=== PATIENT | female | born 1995 | race Caucasian/White ===

== ENCOUNTER → 2017-02-22 | Outpatient (CLI) | payer BC ==
[~2017-02-22] MED LIST: BCPILLS PO; DICY20TA35 PO; DSY50 PO; FLUO20CA35 PO; METR500T PO; MONT1TAB3 PO; MONT1TAB5 PO; SERT25TA PO; ZLF50 PO
== END | disposition home or self-care (01) ==
LOC: C.PAPS 13:06
PROVIDERS: ATTEND Physician Assistant
DX: Z01.419 Encounter for gynecological examination (general) (routine) without abnormal findings (principal)

== ENCOUNTER → 2017-02-23 | Outpatient (CLI) | payer BC ==
[2017-02-26 23:54] LABS: CHLAMYDIA TRACH RNA*** NOT DETECTED (NOT DETECTED); GC (NEIS GONORRHOEAE)RNA** NOT DETECTED (NOT DETECTED)
== END | disposition home or self-care (01) ==
LOC: C.LABSPEC 11:24
PROVIDERS: ATTEND Physician Assistant
DX: Z11.3 Encounter for screening for infections with a predominantly sexual mode of transmission (principal)

== ENCOUNTER 2017-03-17 19:50 | Emergency (ER) | payer BC, OTHER ==
[~2017-03-17] VITALS: Ht 165.1 cm; Wt 64.3 kg
[~2017-03-17 19:50] MED LIST changes: -BCPILLS PO; -DICY20TA35 PO; -DSY50 PO; -METR500T PO; -MONT1TAB3 PO; -MONT1TAB5 PO; -SERT25TA PO; -ZLF50 PO
[2017-03-17 19:54] VITALS: TEMP 36.8; Ht 165.1 cm; Wt 64.3 kg
[2017-03-17] MEDS ORDERED: SODIUM CHLORIDE 0.9% 1000ML 1,000 ML IV STA (20:10)
--- NOTE | 2017-03-17 20:14 | EMERGENCY ROOM VISIT NOTE ---
History Report prepared by Cory: Yakov Ellis Under the Supervision of: Dr. Frankie Nagy D.O. First contact with patient: 19:57 Chief Complaint: VAGINAL BLEEDING Stated Complaint: 7 WEEKS /LIGHT BLEEDING/ABDOMINAL PAIN History of Present Illness The patient is a 21 year old female who presents to the Emergency Room with complaints of persistent vaginal bleeding that began a "few days" ago. The patient also notes that she passed a large clot today. [facility] and was told that she was 7 weeks and four days . She also complains of "severe" abdominal cramping throughout the day today. She has been nauseous as well. She claims that she had similar severe abdominal cramping three weeks ago when she was unaware of the . The patient has also been lightheaded and dizzy. She denies any history fo STDs. Source of History: patient Position: other () Quality: other (Vaginal Bleeding) Timing: other (Persistent) Associated Symptoms: + abdominal pain, + nausea, No vomiting Review of Systems See HPI for pertinent positives & negatives. A total of 10 systems reviewed and were otherwise negative. Past Medical & Surgical Medical Problems: (1) Appendicitis (2) Appendicitis Family History Hypertension Kidney stones Social History Smoking Status: Never Smoker Alcohol Use: none Drug Use: none Housing Status: lives with family Occupation Status: employed Current/Historical Medications Scheduled Montelukast Sodium (Montelukast Sodium), 1 TAB PO HS Allergies Coded Allergies: Penicillins (Verified Allergy, Unknown, HIVES/RASH, 03/17/17) Physical Exam Vital Signs Date Time Temp Pulse Resp B/P Pulse Ox O2 Delivery O2 Flow Rate FiO2 03/17/17 22:07 76 16 101/56 97 03/17/17 21:19 68 16 107/41 100 Room Air 03/17/17 19:54 36.8 69 18 120/59 99 Room Air Physical Exam GENERAL: Patient is awake, alert, and in no acute distress. Patient is resting comfortably and showing no signs of anxiety EYES: The conjunctivae are clear. The pupils are round and reactive. EARS, NOSE, MOUTH AND THROAT: The nose is without any evidence of any deformity. Mucous membranes are moist tongue is midline NECK: The neck is nontender and supple. RESPIRATORY: Normal respiratory effort is noted there is no evidence of wheezing rhonchi or rales CARDIOVASCULAR: Regular rate and rhythm noted there no murmurs rubs or gallops normal S1 normal S2 GASTROINTESTINAL: The abdomen is soft. Bowel sounds are present in all quadrants. Abdomen is nontender MUSCULOSKELETAL/EXTREMITIES: There is no evidence of gross deformity full range of motion is noted in the hips and shoulders SKIN: There is no obvious evidence of any rash. There are no petechiae, pallor or cyanosis noted. NEUROLOGIC: Patient is awake alert and oriented x3. Medical Decision & Procedures ER Provider Diagnostic Interpretation: Radiology results as stated below per my review and radiologist interpretation: ULTRASOUND OF THE PELVIS CLINICAL HISTORY: . Vaginal bleeding. COMPARISON STUDY: Pelvic CT dated 01/19/2012. Pelvic ultrasound dated 01/19/2012. TECHNIQUE: Real-time, grayscale, and color flow sonography of the pelvis is performed both transabdominally and endovaginally. Images are reviewed in the transverse and longitudinal planes. FINDINGS: Uterus: The uterus is normal in size and echotexture, measuring 10.5 x 4.3 x 7.9 cm. Endometrium: The endometrium appears thickened measuring up to 3.0 cm. There is complex debris and fluid seen within the nature canal. A possible yolk sac is identified. A normal gestational sac and parts are not seen. No significant internal vascularity is identified on color imaging. Ovaries: The ovaries are normal in size and morphology. The right ovary measures 3.2 x 2.2 x 2.7 cm and the left ovary measures 3.8 x 2.2 x 2.0 cm. A corpus the team is noted on the right. Follicles are seen bilaterally. Normal Doppler waveforms are shown within both ovaries. Pelvis: There is trace free fluid in the cul-de-sac. No concerning adnexal lesion is seen. IMPRESSION: 1. A normal intrauterine gestation is not identified. 2. The endometrium is thickened, and there is fluid as well as complex nonvascular debris filling the endometrial canal. A possible yolk sac is questioned. A pole is not clearly identified. This likely represents an in progress. Although no adnexal lesion is identified, without a confirmed intrauterine gestation an ectopic would be impossible to exclude. Close clinical, laboratory, and sonographic follow-up is recommended. 3. The ovaries are normal in appearance. 4. There is trace free fluid in the cul-de-sac. Electronically signed by: Sonido Randolph M.D. 03/17/2017 9:39 PM Dictated Date/Time: 03/17/2017 9:34 PM ULTRASOUND OF THE PELVIS CLINICAL HISTORY: . Vaginal bleeding. COMPARISON STUDY: Pelvic CT dated 01/19/2012. Pelvic ultrasound dated 01/19/2012. TECHNIQUE: Real-time, grayscale, and color flow sonography of the pelvis is performed both transabdominally and endovaginally. Images are reviewed in the transverse and longitudinal planes. FINDINGS: Uterus: The uterus is normal in size and echotexture, measuring 10.5 x 4.3 x 7.9 cm. Endometrium: The endometrium appears thickened measuring up to 3.0 cm. There is complex debris and fluid seen within the nature canal. A possible yolk sac is identified. A normal gestational sac and parts are not seen. No significant internal vascularity is identified on color imaging. Ovaries: The ovaries are normal in size and morphology. The right ovary measures 3.2 x 2.2 x 2.7 cm and the left ovary measures 3.8 x 2.2 x 2.0 cm. A corpus the team is noted on the right. Follicles are seen bilaterally. Normal Doppler waveforms are shown within both ovaries. Pelvis: There is trace free fluid in the cul-de-sac. No concerning adnexal lesion is seen. IMPRESSION: 1. A normal intrauterine gestation is not identified. 2. The endometrium is thickened, and there is fluid as well as complex nonvascular debris filling the endometrial canal. A possible yolk sac is questioned. A pole is not clearly identified. This likely represents an in progress. Although no adnexal lesion is identified, without a confirmed intrauterine gestation an ectopic would be impossible to exclude. Close clinical, laboratory, and sonographic follow-up is recommended. 3. The ovaries are normal in appearance. 4. There is trace free fluid in the cul-de-sac. Electronically signed by: Sonido Randolph M.D. 03/17/2017 9:39 PM Dictated Date/Time: 03/17/2017 9:34 PM Laboratory Results 03/17/17 20:11 Red Blood Count 4.37, Mean Corpuscular Volume 91.1, Mean Corpuscular Hemoglobin 30.9, Mean Corpuscular Hemoglobin Concent 33.9, Mean Platelet Volume 9.5, Neutrophils (%) (Auto) 49.2, Lymphocytes (%) (Auto) 36.3, Monocytes (%) (Auto) 11.4, Eosinophils (%) (Auto) 2.9, Basophils (%) (Auto) 0.1, Neutrophils # (Auto ) 3.91, Lymphocytes # (Auto) 2.89, Monocytes # (Auto) 0.91, Eosinophils # (Auto ) 0.23, Basophils # (Auto) 0.01 03/17/17 20:11 Test 03/17/17 20:11 03/17/17 20:15 White Blood Count 7.96 K/uL (4.8-10.8) Red Blood Count 4.37 M/uL (4.2-5.4) Hemoglobin 13.5 g/dL (12.0-16.0) Hematocrit 39.8 % (37-47) Mean Corpuscular Volume 91.1 fL (80-100) Mean Corpuscular Hemoglobin 30.9 pg (25-34) Mean Corpuscular Hemoglobin Concent 33.9 g/dl (32-36) Platelet Count 248 K/uL (130-400) Mean Platelet Volume 9.5 fL (7.4-10.4) Neutrophils (%) (Auto) 49.2 % Lymphocytes (%) (Auto) 36.3 % Monocytes (%) (Auto) 11.4 % Eosinophils (%) (Auto) 2.9 % Basophils (%) (Auto) 0.1 % Neutrophils # (Auto) 3.91 K/uL (1.4-6.5) Lymphocytes # (Auto) 2.89 K/uL (1.2-3.4) Monocytes # (Auto) 0.91 K/uL (0.11-0.59) Eosinophils # (Auto) 0.23 K/uL (0-0.5) Basophils # (Auto) 0.01 K/uL (0-0.2) RDW Standard Deviation 44.0 fL (36.4-46.3) RDW Coefficient of Variation 13.1 % (11.5-14.5) Immature Granulocyte % (Auto) 0.1 % Immature Granulocyte # (Auto) 0.01 K/uL (0.00-0.02) Prothrombin Time 11.2 SECONDS (9.0-12.0) Prothromb Time International Ratio 1.0 (0.9-1.1) Activated Partial Thromboplast Time 29.8 SECONDS (21.0-31.0) Partial Thromboplastin Ratio 1.1 Anion Gap 8.0 mmol/L (3-11) Est Creatinine Clear Calc Drug Dose 104.5 ml/min Estimated GFR () 129.1 Estimated GFR (Non- 111.3 BUN/Creatinine Ratio 11.6 (10-20) Calcium Level 8.8 mg/dl (8.5-10.1) Total Bilirubin 0.6 mg/dl (0.2-1) Aspartate Amino Transf (AST/SGOT) 16 U/L (15-37) Alanine Aminotransferase (ALT/SGPT) 25 U/L (12-78) Alkaline Phosphatase 56 U/L (45-117) Total Protein 7.6 gm/dl (6.4-8.2) Albumin 4.0 gm/dl (3.4-5.0) Globulin 3.6 gm/dl (2.5-4.0) Albumin/Globulin Ratio 1.1 (0.9-2) Human Chorionic Gonadotropin, Quant 61204 mIU/mL Urine Color YELLOW Urine Appearance CLEAR (CLEAR) Urine pH 5.5 (4.5-7.5) Urine Specific [place] 1.015 (1.000-1.030) Urine Protein NEG (NEG) Urine Glucose (UA) NEG (NEG) Urine Ketones NEG (NEG) Urine Occult Blood 3+ (NEG) Urine Nitrite NEG (NEG) Urine Bilirubin NEG (NEG) Urine Urobilinogen NEG (NEG) Urine Leukocyte Esterase NEG (NEG) Urine WBC (Auto) 1-5 /hpf (0-5) Urine RBC (Auto) 5-10 /hpf (0-4) Urine Hyaline Casts (Auto) 1-5 /lpf (0-5) Urine Epithelial Cells (Auto) 20-30 /lpf (0-5) Urine Bacteria (Auto) NEG (NEG) Laboratory results per my review. Medications Administered Medications (Trade) Dose Ordered Sig/Juan Route Start Time Stop Time Status Last Admin Dose Admin Sodium Chloride (Nss 1000ml) 1,000 ml @ 999 mls/hr Q1H1M STAT IV 03/17/17 20:10 03/17/17 21:10 DC 03/17/17 20:14 999 MLS/HR Procedure PROCEDURE: BEDSIDE ULTRA SOUND A beside US was performed. There was a questionable gestation sack noted that was intrauterine. Very irregular in shape. No definite pool identified. ED Course 1999: The patient was evaluated in room A12. A complete history and physical examination were performed. 2009: Ordered Sodium Chloride 1000 mL @ 999 mL/hr IV. 2199: Upon reevaluation, the patient is resting in bed. I discussed the results and treatment plan with her. She verbalized agreement of the treatment plan. The patient was discharged home. Medical Decision The patient's history was concerning for vaginal bleeding and abdominal pain. Differential diagnosis: Etiologies such as ectopic , dysfunction uterine bleeding, bleeding dyscrasia, trauma, infection, as well as others were entertained. The patient is a 21-year-old female who presented to the emergency department for an evaluation of vaginal bleeding. The patient recently found out she was . The patient did not have a physical exam consistent with an acute surgical abdomen. Her bedside ultrasound did not appear to show a definite intrauterine . For this reason formal laboratory and radiographic studies was obtained. I discussed the patient's laboratory and radiographic studies with her. She was treated with IV fluids. At this time she does have an elevated beta hCG quantitative level but her ultrasound did not show definite intrauterine . I discussed follow-up with the patient and I encouraged her to follow-up with the [facility] [address] [facility] physician this week for reevaluation and have repeat ultrasound and repeat blood testing. She's also encouraged to avoid any strenuous activity and return to the emergency department immediately if symptoms change worsen or the need arises. Impression Primary Impression: Threatened miscarriage Scribe Attestation The scribe's documentation has been prepared under my direction and personally reviewed by me in its entirety. I confirm that the note above accurately reflects all work, treatment, procedures, and medical decision making performed by me. Departure Information Dispostion Home / Self-Care Referrals RV. Flores MD (PCP) Forms HOME CARE DOCUMENTATION FORM, IMPORTANT VISIT INFORMATION, WORK / SCHOOL INSTRUCTIONS Patient Instructions My [facility] Additional Instructions Follow-up with the [facility] physician on Sunday for repeat ultrasound as well as repeat blood test. Continue taking Motrin and Tylenol as directed for pain. Rest and avoid any strenuous activity. Return to the emergency department immediately if symptoms change worsen or the need arises.
[2017-03-17 20:26] LABS: BASO % 0.1 %; BASO ABS # 0.01 K/uL (0-0.2); COMPLETE YES; EOS % 2.9 %; HEMATOCRIT 39.8 % (37-47); IG% 0.1 %; LYMPH % 36.3 %; LYMPH ABS # 2.89 K/uL (1.2-3.4); MEAN CELL VOLUME 91.1 fL (80-100); MEAN CORPUSCULAR HEMOGLOBIN 30.9 pg (25-34); MEAN CORPUSCULAR HGB CONC 33.9 g/dl (32-36); MEAN PLATELET VOLUME 9.5 fL (7.4-10.4); MONO % 11.4 %; NEUT % 49.2 %; PLATELET COUNT 248 K/uL (130-400); RED BLOOD COUNT 4.37 M/uL (4.2-5.4); WHITE BLOOD COUNT 7.96 K/uL (4.8-10.8)
[2017-03-17 20:28] LABS: URINE APPEARANCE CLEAR (CLEAR); URINE BILIRUBIN NEG (NEG); URINE COLOR YELLOW; URINE EPITHELIAL CELL AUTO 20-30 /lpf (0-5); URINE NITRITE NEG (NEG); URINE PH 5.5 (4.5-7.5); URINE SPECIFIC GRAVITY 1.015 (1.000-1.030); UROBILINOGEN NEG (NEG)
[2017-03-17] MEDS ORDERED: MONT1TAB5 PO (20:28)
[2017-03-17 20:30] LABS: MANUAL MICROSCOPIC REQUIRED? NO; REVIEW REQ? NO
[2017-03-17 20:37] LABS: PARTIAL THROMBOPLASTIN RATIO 1.1; PROTHROMBIN TIME (PATIENT) 11.2 SECONDS (9.0-12.0)
[2017-03-17 20:42] LABS: BUN/CREATININE RATIO 11.6 (10-20); CALCIUM 8.8 mg/dl (8.5-10.1); CREATININE 0.76 mg/dl (0.60-1.20); POTASSIUM 3.8 mmol/L (3.5-5.1)
[2017-03-17 20:44] LABS: ALB/GLOB RATIO 1.1 (0.9-2)
--- NOTE | 2017-03-17 21:41 | DIAGNOSTIC IMAGING REPORT ---
ULTRASOUND OF THE PELVIS CLINICAL HISTORY: . Vaginal bleeding. COMPARISON STUDY: Pelvic CT dated 01/19/2012. Pelvic ultrasound dated 01/19/2012. TECHNIQUE: Real-time, grayscale, and color flow sonography of the pelvis is performed both transabdominally and endovaginally. Images are reviewed in the transverse and longitudinal planes. FINDINGS: Uterus: The uterus is normal in size and echotexture, measuring 10.5 x 4.3 x 7.9 cm. Endometrium: The endometrium appears thickened measuring up to 3.0 cm. There is complex debris and fluid seen within the nature canal. A possible yolk sac is identified. A normal gestational sac and parts are not seen. No significant internal vascularity is identified on color imaging. Ovaries: The ovaries are normal in size and morphology. The right ovary measures 3.2 x 2.2 x 2.7 cm and the left ovary measures 3.8 x 2.2 x 2.0 cm. A corpus the team is noted on the right. Follicles are seen bilaterally. Normal Doppler waveforms are shown within both ovaries. Pelvis: There is trace free fluid in the cul-de-sac. No concerning adnexal lesion is seen. IMPRESSION: 1. A normal intrauterine gestation is not identified. 2. The endometrium is thickened, and there is fluid as well as complex nonvascular debris filling the endometrial canal. A possible yolk sac is questioned. A pole is not clearly identified. This likely represents an in progress. Although no adnexal lesion is identified, without a confirmed intrauterine gestation an ectopic would be impossible to exclude. Close clinical, laboratory, and sonographic follow-up is recommended. 3. The ovaries are normal in appearance. 4. There is trace free fluid in the cul-de-sac. Electronically signed by: Sonido Randolph M.D. 03/17/2017 9:39 PM Dictated Date/Time: 03/17/2017 9:34 PM
[2017-03-17 22:07] VITALS: BP 101/56; PULSE 76; O2SAT 97
[2017-03-23] MEDS ORDERED: METR500T PO (11:34)
[2017-10-08] MEDS ORDERED: DSY50 PO (14:50)
[2017-10-08] MEDS ORDERED: ZLF50 PO (14:50)
== END 2017-03-17 22:08 | disposition home or self-care (01) ==
LOC: C.EDB 19:53 → C.EDA 22:08
DX: O20.0 Threatened abortion (principal); Z3A.01 Less than 8 weeks gestation of pregnancy; Z82.49 Family history of ischemic heart disease and other diseases of the circulatory system; Z84.1 Family history of disorders of kidney and ureter

== ENCOUNTER → 2017-03-19 | Outpatient (CLI) | payer BC, OTHER ==
[~2017-03-19] MED LIST changes: +BCPILLS PO; +DICY20TA35 PO; +DSY50 PO; -FLUO20CA35 PO; +METR500T PO; +MONT1TAB3 PO; +MONT1TAB5 PO; +SERT25TA PO; +ZLF50 PO
== END | disposition home or self-care (01) ==
LOC: C.LAB1850 15:19
PROVIDERS: ATTEND Obstetrics & Gynecology
DX: O03.9 Complete or unspecified spontaneous abortion without complication (principal); Z3A.00 Weeks of gestation of pregnancy not specified

== ENCOUNTER → 2017-03-22 | Outpatient (CLI) | payer BC, OTHER ==
[2017-03-22 10:33] LABS: BASO % 0.1 %; BASO ABS # 0.01 K/uL (0-0.2); COMPLETE YES; EOS % 4.2 %; HEMATOCRIT 36.7 % (37-47); IG% 0.3 %; LYMPH % 29.5 %; LYMPH ABS # 2.11 K/uL (1.2-3.4); MEAN CORPUSCULAR HEMOGLOBIN 30.6 pg (25-34); MEAN CORPUSCULAR HGB CONC 33.2 g/dl (32-36); MEAN PLATELET VOLUME 9.8 fL (7.4-10.4); MONO % 12.8 %; NEUT % 53.1 %; PLATELET COUNT 233 K/uL (130-400); RED BLOOD COUNT 3.99 M/uL (4.2-5.4); WHITE BLOOD COUNT 7.16 K/uL (4.8-10.8)
[2017-03-22 11:17] LABS: ALT/SGPT 26 U/L (12-78); AST/SGOT 18 U/L (15-37); BLOOD UREA NITROGEN 8 mg/dl (7-18); BUN/CREATININE RATIO 12.8 (10-20); CALCIUM 8.5 mg/dl (8.5-10.1); CARBON DIOXIDE 27 mmol/L (21-32); CHLORIDE 109 mmol/L (98-107); CREATININE 0.64 mg/dl (0.60-1.20); GLUCOSE 70 mg/dl (70-99); POTASSIUM 3.8 mmol/L (3.5-5.1); SODIUM 142 mmol/L (136-145)
[2017-03-22 11:19] LABS: ALB/GLOB RATIO 1.1 (0.9-2); ALKALINE PHOSPHATASE 51 U/L (45-117)
== END | disposition home or self-care (01) ==
LOC: C.LAB1850 08:19
PROVIDERS: ATTEND Obstetrics & Gynecology
DX: Z01.812 Encounter for preprocedural laboratory examination (principal); O03.4 Incomplete spontaneous abortion without complication

== ENCOUNTER 2017-03-23 10:49 | Day surgery (SDC) | payer BC, OTHER ==
[~2017-03-23] VITALS: Ht 165.1 cm; Wt 61.0 kg
[~2017-03-23 10:49] MED LIST changes: -BCPILLS PO; -DICY20TA35 PO; +DOXYCYCLINE HYCLATE 100 MG CAP PO SCH; -DSY50 PO; +LACTATED RINGER'S 1000ML 1,000 ML IV SCH; -METR500T PO; -MONT1TAB3 PO; -SERT25TA PO; -ZLF50 PO
[2017-03-23 10:55] VITALS: BP 103/53; PULSE 55; TEMP 36.7; O2SAT 98; Ht 165.1 cm; Wt 61.0 kg
[2017-03-23] MEDS ORDERED: MONT1TAB3 PO (11:26)
--- NOTE | 2017-03-23 11:31 | History & Physical Bridge Note ---
H&P Re-Evaluation Bridge Note: I have examined the patient, reviewed the History & Physical and in the interval since the performance of the History & Physical I have noted the following changes of clinical significance: Discussed importance of close followup after D&E - weekly lab draws until bHCG 0 x 3 weeks, then monthly for 6 months. Also important to avoid - patient is agreeable to these recommendations and understands.
[2017-03-23] MEDS ORDERED: METR500T PO (11:34)
[2017-03-23] MEDS ORDERED: FENTANYL CITRATE INJ 50 MCG/1 ML 2 ML VIAL ONE ×2 (13:00→14:03)
[2017-03-23] MEDS ORDERED: ROCURONIUM BROMIDE 10 MG/ML 5 ML VIAL ONE (13:00)
[2017-03-23] MEDS ORDERED: DEXAMETHASONE SOD INJ 4 MG/ML VIAL ONE (13:00)
[2017-03-23] MEDS ORDERED: MIDAZOLAM HCL 1 MG/ML 2ML VIAL ONE (13:00)
[2017-03-23] MEDS ORDERED: ONDANSETRON INJ 2 MG/ML 2 ML VIAL ONE (13:00)
[2017-03-23] MEDS ORDERED: PROPOFOL IV EMULSION 10 MG/ML 20 ML VIAL IV ONE (13:00)
[2017-03-23] MEDS ORDERED: NEOSTIGMINE METHYLSULFATE 5 MG/5 ML SYR ONE (13:00)
[2017-03-23] MEDS ORDERED: GLYCOPYRROLATE INJ 0.2 MG/ML VIAL ONE (13:00)
[2017-03-23] MEDS ORDERED: LIDOCAINE HCL 2% 2 ML VIAL (20MG/ML) ONE (13:00)
[2017-03-23] MEDS ORDERED: METHYLERGONOVINE MALEATE 0.2 MG/ML AMP ONE (13:10)
[2017-03-23] MEDS ORDERED: SODIUM CHLORIDE 0.9% 1000ML 1,000 ML IV SCH (13:55)
[2017-03-23] MEDS ORDERED: DOXYCYCLINE HYCLATE 100 MG CAP PO STA (13:55)
--- NOTE | 2017-03-23 13:55 | [facility] Post Operative Brief Note ---
Immediate Operative Summary Operative Date March 23, 2017. Pre-Operative Diagnosis Molar Post-Operative Diagnosis Same Procedure(s) Performed Suction D&E Surgeon Lisa Gillespie DO Health And Safety Manager Surgeon(s) July Roach MD Estimated Blood Loss 200ml Findings Large amount of products of conception, ultrasound at conclusion of case shows empty uterine cavity. Specimens Products of conception Drains bladder drained prior to procedure Anesthesia General Complication(s) None Disposition Recovery Room / PACU
--- NOTE | 2017-03-23 13:59 | Discharge Instructions ---
Discharge Instructions Date of Service March 23, 2017. Visit Reason for Visit: Missed Discharge Discharge Diagnosis / Problem: Molar Discharge Goals Goal(s): Therapeutic intervention Activity Recommendations Activity Limitations: per Instructions/Follow-up section Anesthesia . Post Anesthesia Instructions: If you have had General Anesthesia or IV Sedation: * Do not drive today. * Resume driving when surgeon permits. * Do not make important decisions or sign legal documents today. * Call surgeon for: 1. Temperature elevations greater than 101 degrees F. 2. Uncontrollable pain. 3. Excessive bleeding. 4. Persistent nausea and vomiting. 5. Medication intolerance (nausea, vomiting or rash). * For nausea and vomiting use only clear liquids such as: tea, soda, bouillon until nausea subsides, then gradually increase diet as tolerated. * If you have any concerns or questions, call your surgeon's office. If physician is unavailable and it is an emergency, call 911 or go to the nearest emergency room. . Instructions / Follow-Up Instructions / Follow-Up ACTIVITY RECOMMENDATIONS: * Avoid tampons, douching, hot tubs, pools, and intercourse until bleeding has stopped. * May shower as usual. * No strenuous activity for 24-48 hours. After 24-48 hours, you may do anything you feel like doing (driving and sports are okay). SPECIAL CARE INSTRUCTIONS: Special Diet: * Mild nausea may occur in the immediate post-operative period. * Take clear liquids such as tea, cola or bouillon until all nausea has subsided; you may then resume your normal diet. Special Care: * Light bleeding and vaginal spotting can last from a few days to 3-4 weeks. Call your doctor if bleeding becomes heavier than the heaviest part of your period. * Check your temperature twice a day for one week. If it goes above 100.4 degrees Fahrenheit (38.0 Celsius), notify your doctor. * Call your doctor's office for an appointment for 6 weeks after your surgery. FOLLOW-UP VISIT: Call your doctor's office for an appointment for 2 weeks after your surgery. You will need to have labs drawn every week until hormone level drops to 0 for 3 weeks in a row, then will need monthly lab draw for 6 months after. Diet Recommendations Recommended Home Diet: resume previous diet Procedures Procedures Performed: Suction D&E Pending Studies Studies pending at discharge: yes List of pending studies: Pathology results Medical Emergencies . Who to Call and When: Medical Emergencies: If at any time you feel your situation is an emergency, please call 911 immediately. . Non-Emergent Contact Non-Emergency issues call your: Primary Care Provider, Assistance Coordinator . . "Provider Documentation" section prepared by Lucie Gillespie. .
[2017-03-23] MEDS ORDERED: ATROPINE SULFATE 0.1 MG/ML 5ML SYR IV PRN (14:00)
[2017-03-23] MEDS ORDERED: OXYCODONE/ACETAMINOPHEN 5-325 TAB PO PRN ×2 (14:00)
[2017-03-23] MEDS ORDERED: MEPERIDINE HCL 25 MG/ML CARP IV PRN (14:00)
[2017-03-23] MEDS ORDERED: NALOXONE HCL 0.4 MG/1 ML VIAL/CARP IV PRN (14:00)
[2017-03-23] MEDS ORDERED: KETOROLAC TROMETHAMINE 30 MG/ML VIAL IV. PRN (14:00)
[2017-03-23] MEDS ORDERED: FENTANYL CITRATE INJ 50 MCG/1 ML 2 ML VIAL IV PRN (14:00)
[2017-03-23] MEDS ORDERED: HYDROmorphone INJ 2 MG/ML SYR/VIAL IV PRN (14:00)
[2017-03-23] MEDS ORDERED: PROMETHAZINE HCL INJ 25 MG in SODIUM CHLORIDE 0.9% 50ML 50 ML IV PRN (14:00)
[2017-03-23] MEDS ORDERED: ONDANSETRON INJ 2 MG/ML 2 ML VIAL IV PRN ×2 (14:00)
[2017-03-23] MEDS ORDERED: EpHEDrine SULFATE INJ 50 MG/ML AMP IV PRN (14:00)
[2017-03-23] MEDS ORDERED: FLUMAZENIL 0.1 MG/1 ML 10 ML VIAL IV PRN (14:00)
[2017-03-23] MEDS ORDERED: LABETALOL HCL IV 5 MG/ML 20ML IV PRN (14:00)
[2017-03-23] MEDS ORDERED: PHENYLEPHRINE 100MCG/ML 5ML SYR IV PRN (14:00)
--- NOTE | 2017-03-23 14:20 | Anesthesiology Progress Note ---
Anesthesia Post Op Note Date & Time March 23, 2017 at 14:21 Vital Signs Pain Intensity: 3.0 Vital Signs Past 12 Hours Date Time Temp Pulse Resp B/P Pulse Ox O2 Delivery O2 Flow Rate FiO2 03/23/17 13:48 36.4 56 16 113/67 100 Mask 10 03/23/17 10:55 36.7 55 16 103/53 98 Room Air Notes Mental Status: alert / awake / arousable, participated in evaluation Pt Amnestic to Procedure: Yes Nausea / Vomiting: adequately controlled Pain: adequately controlled Airway Patency, RR, SpO2: stable & adequate BP & HR: stable & adequate Hydration State: stable & adequate Anesthetic Complications: no major complications apparent
--- NOTE | 2017-03-23 14:29 | DIAGNOSTIC IMAGING REPORT ---
INTRAOPERATIVE PELVIC ULTRASOUND (NO CHARGE) CLINICAL HISTORY: , Missed COMPARISON STUDY: No previous studies for comparison. FINDINGS: Ultrasound guidance was performed by the indian nanny during performance of a D\T\E by Dr. Gillespie. There was no radiologist input. IMPRESSION: Intraoperative guidance provided by the certified performance technologist. Electronically signed by: Prosper Ureña M.D. 03/23/2017 2:28 PM Dictated Date/Time: 03/23/2017 2:26 PM
[2017-03-23 14:30] VITALS: BP 103/55; PULSE 60; TEMP 36.7; O2SAT 99
[2017-03-23 15:10] VITALS: BP 108/57; PULSE 65; TEMP 36.5; O2SAT 99
--- NOTE | 2017-03-23 15:48 | OPERATIVE REPORT ---
DATE OF OPERATION: 03/23/2017 PREOPERATIVE DIAGNOSIS: Molar . POSTOPERATIVE DIAGNOSIS: Same. PROCEDURES PERFORMED: Suction, dilation and evacuation. SURGEON: Lucie Gillespie MD ANODE REBUILDER: Dr. Roach. ESTIMATED BLOOD LOSS: 200 mL. FINDINGS: Large amount of products of conception. Ultrasound at the conclusion of case shows empty uterine cavity. SPECIMENS: Products of conception. DRAINS: Bladder drained prior to the procedure. ANESTHESIA: General. COMPLICATIONS: None. DISPOSITION: Stable and good to recovery room. INDICATIONS FOR PROCEDURE: The patient is a 21-year-old -0-1-0 with unsure last menstrual period, but we are assuming she is approximately 7-8 weeks with beta hCG quant that is rising, yesterday's value was 92,000. Ultrasound showed classic snowstorm appearance on ultrasound with no pole or cardiac activity demonstrating most likely a molar . DESCRIPTION OF PROCEDURE: The patient was seen in the preoperative holding area where risks, benefits, alternatives to surgery were reviewed. She elected to proceed with surgery. She had previously signed informed consent under no duress in the office. All questions were answered. The patient was then taken to the operating room, 1 hour prior to the procedure the patient was given p.o. doxycycline. She unfortunately did have an emesis; however, no pill capsule was noted in the emesis. She was given general anesthesia and was prepared and draped in the usual sterile fashion with feet in candy cane stirrups in the dorsal lithotomy position. The timeout was called and confirmed. A weighted speculum was placed in the vagina. The patient was placed in Trendelenburg position. Her bladder was drained prior to the procedure. The anterior lip of the cervix was grasped with a single-tooth tenaculum. The cervix was sequentially dilated to admit a 10 mm curved suction curette under ultrasound guidance. This curette was used to perform the suction curettage. At the conclusion of the curettage ultrasound guidance shows no products remaining in the uterus. Gentle curettage with a sharp curette was undertaken. All products of conception were sent to pathology for further evaluation. The patient was given Methergine by anesthesia for hemostasis and excellent hemostasis was noted at the conclusion of the case. The patient was awoken from anesthesia and taken to the postoperative recovery area in stable and good condition. I have discussed with the patient that she will need to have weekly lab draws of her beta hCG until the quant reduces to zero. She will need 3 weekly lab draws showing beta hCG zero and following this we will perform quants monthly for 6 months. She is aware that she needs a good method of contraception during this period of time watching her beta hCG level. We will discuss contraceptive methods in the office at her 2-week postoperative followup visit. The patient knows that she is not to have intercourse prior to being seen in the office. I attest to the content of the Intraoperative Record and any orders documented therein. Any exceptio ns are noted below.
[2017-10-08] MEDS ORDERED: DSY50 PO (14:50)
[2017-10-08] MEDS ORDERED: ZLF50 PO (14:50)
== END 2017-03-23 15:38 | disposition home or self-care (01) ==
LOC: C.ACU 10:49
PROVIDERS: ATTEND Obstetrics & Gynecology
DX: O01.9 Hydatidiform mole, unspecified (principal); J45.909 Unspecified asthma, uncomplicated; Z87.891 Personal history of nicotine dependence; Z82.49 Family history of ischemic heart disease and other diseases of the circulatory system; Z83.3 Family history of diabetes mellitus

== ENCOUNTER → 2017-03-30 | Outpatient (CLI) | payer BC, OTHER ==
[~2017-03-30] MED LIST changes: +BCPILLS PO; +DICY20TA35 PO; -DOXYCYCLINE HYCLATE 100 MG CAP PO SCH; +DSY50 PO; -LACTATED RINGER'S 1000ML 1,000 ML IV SCH; +METR500T PO; +MONT1TAB3 PO; +SERT25TA PO; +ZLF50 PO
== END | disposition home or self-care (01) ==
LOC: C.LAB1850 08:42
PROVIDERS: ATTEND Obstetrics & Gynecology
DX: O02.0 Blighted ovum and nonhydatidiform mole (principal)

== ENCOUNTER → 2017-04-06 | Outpatient (CLI) | payer BC ==
[~2017-04-06] MED LIST changes: -METR500T PO
== END | disposition home or self-care (01) ==
LOC: C.LAB1850 09:52
PROVIDERS: ATTEND Obstetrics & Gynecology
DX: O02.0 Blighted ovum and nonhydatidiform mole (principal)

== ENCOUNTER → 2017-04-18 | Outpatient (CLI) | payer BC | END | disposition home or self-care (01) | LOC: C.LAB1850 16:06 | PROVIDERS: ATTEND Obstetrics & Gynecology | DX: O02.0 Blighted ovum and nonhydatidiform mole (principal) ==

== ENCOUNTER → 2017-04-27 | Outpatient (CLI) | payer BC | END | disposition home or self-care (01) | LOC: C.LABSPEC 10:18 | PROVIDERS: ATTEND Pathology Anatomic Pathology & Clinical Pathology | DX: O02.1 Missed abortion (principal) ==

== ENCOUNTER → 2017-05-17 | Outpatient (CLI) | payer BC ==
[~2017-05-17] MED LIST changes: -BCPILLS PO; -DICY20TA35 PO; -DSY50 PO; -SERT25TA PO; -ZLF50 PO
== END | disposition home or self-care (01) ==
LOC: C.LAB1850 08:00
PROVIDERS: ATTEND Obstetrics & Gynecology
DX: O02.0 Blighted ovum and nonhydatidiform mole (principal)

== ENCOUNTER → 2017-05-23 | Outpatient (CLI) | payer BC ==
[~2017-05-23] MED LIST changes: +DICY20TA35 PO
[2017-05-23 15:24] LABS: BASO % 0.1 %; BASO ABS # 0.01 K/uL (0-0.2); COMPLETE YES; EOS % 2.8 %; HEMATOCRIT 34.2 % (37-47); IG% 0.3 %; LYMPH % 33.3 %; LYMPH ABS # 2.96 K/uL (1.2-3.4); MEAN CELL VOLUME 90.5 fL (80-100); MEAN CORPUSCULAR HEMOGLOBIN 29.4 pg (25-34); MEAN CORPUSCULAR HGB CONC 32.5 g/dl (32-36); MEAN PLATELET VOLUME 10.2 fL (7.4-10.4); NEUT % 55.5 %; PLATELET COUNT 218 K/uL (130-400); RED BLOOD COUNT 3.78 M/uL (4.2-5.4); WHITE BLOOD COUNT 8.88 K/uL (4.8-10.8)
== END | disposition home or self-care (01) ==
LOC: C.LAB1850 14:28
PROVIDERS: ATTEND Obstetrics & Gynecology
DX: O02.0 Blighted ovum and nonhydatidiform mole (principal)

== ENCOUNTER → 2017-06-01 | Outpatient (CLI) | payer BC | END | disposition home or self-care (01) | LOC: C.LAB1850 12:58 | PROVIDERS: ATTEND Obstetrics & Gynecology | DX: O02.0 Blighted ovum and nonhydatidiform mole (principal) ==

== ENCOUNTER → 2017-06-14 | Outpatient (CLI) | payer BC | END | disposition home or self-care (01) | LOC: C.LAB1850 09:04 | PROVIDERS: ATTEND Obstetrics & Gynecology | DX: O20.0 Threatened abortion (principal); Z3A.00 Weeks of gestation of pregnancy not specified ==

== ENCOUNTER → 2017-06-28 | Outpatient (CLI) | payer BC | END | disposition home or self-care (01) | LOC: C.LAB1850 13:36 | PROVIDERS: ATTEND Obstetrics & Gynecology | DX: O02.0 Blighted ovum and nonhydatidiform mole (principal) ==

== ENCOUNTER 2017-07-19 20:24 | Emergency (ER) | payer BC ==
[~2017-07-19] VITALS: Ht 165.1 cm; Wt 64.3 kg
[~2017-07-19 20:24] MED LIST changes: -DICY20TA35 PO
[2017-07-19 20:26] VITALS: TEMP 36.7; Ht 165.1 cm; Wt 64.3 kg
[2017-07-19 20:35] VITALS: O2SAT 100
[2017-07-19 21:09] LABS: HEMATOCRIT 36.4 % (37-47); MEAN CELL VOLUME 90.3 fL (80-100); MEAN CORPUSCULAR HEMOGLOBIN 30.3 pg (25-34); MEAN CORPUSCULAR HGB CONC 33.5 g/dl (32-36); MEAN PLATELET VOLUME 10.3 fL (7.4-10.4); PLATELET COUNT 213 K/uL (130-400); RED BLOOD COUNT 4.03 M/uL (4.2-5.4); WHITE BLOOD COUNT 8.44 K/uL (4.8-10.8)
[2017-07-19 21:13] LABS: PREG INTERNAL NEGATIVE QC NEG CLEAR BACKGROUND; PREG INTERNAL POSITIVE QC POS CONTROL LINE
[2017-07-19 21:14] LABS: ALT/SGPT 18 U/L (12-78); BLOOD UREA NITROGEN 11 mg/dl (7-18); BUN/CREATININE RATIO 13.3 (10-20); CALCIUM 8.9 mg/dl (8.5-10.1); CARBON DIOXIDE 27 mmol/L (21-32); CHLORIDE 105 mmol/L (98-107); CREATININE 0.81 mg/dl (0.60-1.20); GLUCOSE 92 mg/dl (70-99); POTASSIUM 3.5 mmol/L (3.5-5.1); SODIUM 137 mmol/L (136-145)
--- NOTE | 2017-07-19 21:18 | DIAGNOSTIC IMAGING REPORT ---
CHEST ONE VIEW PORTABLE CLINICAL HISTORY: Atypical chest pain COMPARISON STUDY: No previous studies for comparison. FINDINGS: The cardiac and mediastinal contours are normal. There is no evidence of focal pulmonary consolidation. There is no evidence of failure. No pleural effusions are visualized.[ IMPRESSION: No active disease in the chest. Electronically signed by: Prosper Ureña M.D. 07/19/2017 9:17 PM Dictated Date/Time: 07/19/2017 9:17 PM
[2017-07-19 21:19] LABS: ALKALINE PHOSPHATASE 60 U/L (45-117); AST/SGOT 17 U/L (15-37)
[2017-07-19 21:34] LABS: BASO % 0.2 %; BASO ABS # 0.02 K/uL (0-0.2); COMPLETE YES; EOS % 4.9 %; IG% 0.1 %; LYMPH % 56.4 %; LYMPH ABS # 4.76 K/uL (1.2-3.4); MONO % 8.1 %; NEUT % 30.3 %
[2017-07-19] MEDS ORDERED: OPTIRAY 320 IV PRN (22:30)
[2017-07-19 23:29] LABS: MANUAL MICROSCOPIC REQUIRED? NO; REVIEW REQ? NO; URINE APPEARANCE CLEAR (CLEAR); URINE BILIRUBIN NEG (NEG); URINE COLOR YELLOW; URINE NITRITE NEG (NEG); URINE SPECIFIC GRAVITY 1.041 (1.000-1.030); UROBILINOGEN NEG (NEG)
[2017-07-20] MEDS ORDERED: DICY20TA35 PO (00:04)
--- NOTE | 2017-07-20 00:10 | EMERGENCY ROOM VISIT NOTE ---
History Report prepared by Cory: John Palencia Under the Supervision of: Dr. Cristi Alicea M.D. First contact with patient: 20:46 Chief Complaint: CHEST PAIN Stated Complaint: CHEST PAIN,ABDOMINAL PAIN History of Present Illness The patient is a 21 year old female who presents to the Emergency Room with complaints of constant epigastric and substernal chest pain beginning 1.5 hours ago. She currently rates her discomfort an 8/10 in severity. The patient states that she has tried taking Pepto Bismol, but it made it worse. She reports that she has been experiencing nausea ever since her pain began. The patient notes that she has been experiencing intermittent diarrhea and hematochezia for the past 6 days. She states that she also has abdominal pain when she experiences her episodes. The patient notes that she has been experiencing gross amounts of stress over the past few weeks. She states that her pain intensifies when she breaths in. The patient reports that she had a DNC in March, and it was normal. She notes that her last normal menstrual period was last week, and it was light and short. The patient reports that this is base line because she has a history of a molar in March. Pt denies LOC, headache, fevers, chills, diaphoresis, visual changes, neck pain, breathing difficulties, vomiting, back pain, melena, urinary symptoms, numbness, weakness, lymphadenopathy, rash, family history of GI diseases, recent colds, lifting heavy objects, or other complaints. Source of History: patient Onset: 1.5 hours ago Position: chest (epigastric and substernal) Symptom Intensity: 8/10 Timing: constant Associated Symptoms: + nausea, + abdominal pain, + hematochezia, + diarrhea Review of Systems See HPI for pertinent positives and negatives. A total of ten systems were reviewed and were otherwise negative. Past Medical & Surgical Medical Problems: (1) Appendicitis (2) Appendicitis (3) Molar Surgical Problems: (1) History of appendectomy Family History Hypertension Kidney stones Social History Smoking Status: Never Smoker Alcohol Use: none Drug Use: none Housing Status: lives with family Occupation Status: employed Current/Historical Medications Scheduled Montelukast Sodium (Montelukast Sodium), 1 TAB PO HS Scheduled PRN Dicyclomine Hcl (Bentyl), 20 MG PO QID PRN for Pain Allergies Coded Allergies: Penicillins (Verified Allergy, Intermediate, HIVES/RASH, 07/19/17) Physical Exam Vital Signs Date Time Temp Pulse Resp B/P (MAP) Pulse Ox O2 Delivery O2 Flow Rate FiO2 07/19/17 22:17 55 20 118/59 100 Room Air 07/19/17 21:30 100 Room Air 07/19/17 21:00 66 07/19/17 20:35 100 Room Air 07/19/17 20:26 36.7 68 18 116/77 99 Room Air Physical Exam GENERAL: Awake, alert, well-appearing, in no distress HENT: Normocephalic, atraumatic. Oropharynx unremarkable. EYES: Normal conjunctiva. Sclera non-icteric. NECK: Supple. No nuchal rigidity. FROM. No JVD. RESPIRATORY: Clear to auscultation. CARDIAC: Borderline bradycardic rate, normal rhythm. Extremities warm and well perfused. Pulses equal. ABDOMEN: Soft, non-distended. Left upper and lower quadrant showed tenderness to palpation. No rebound or guarding. No masses. RECTAL: Deferred. MUSCULOSKELETAL: Chest examination reveals no tenderness. The back is symmetrical on inspection without obvious abnormality. There is no CVA tenderness to palpation. No joint edema. LOWER EXTREMITIES: Calves are equal size bilaterally and non-tender. No edema. No discoloration. NEURO: Normal sensorium. No sensory or motor deficits noted. SKIN: No rash or jaundice noted. Medical Decision & Procedures ER Provider Diagnostic Interpretation: Radiology results as stated below per my review and radiologist interpretation: CHEST ONE VIEW PORTABLE CLINICAL HISTORY: Atypical chest pain COMPARISON STUDY: No previous studies for comparison. FINDINGS: The cardiac and mediastinal contours are normal. There is no evidence of focal pulmonary consolidation. There is no evidence of failure. No pleural effusions are visualized. IMPRESSION: No active disease in the chest. Electronically signed by: Prosper Ureña M.D. 07/19/2017 9:17 PM Dictated Date/Time: 07/19/2017 9:17 PM Preliminary Findings Only See Final Report For Complete Findings CT ABDOMEN & PELVIS: 2 cm cyst right ovary versus adjacent small bowel loop Very small pelvic free fluid Abdominal solid organs and contracted gallbladder appear within limits No bowel dilation or free air Laboratory Results 07/19/17 20:37 Red Blood Count 4.03, Mean Corpuscular Volume 90.3, Mean Corpuscular Hemoglobin 30.3, Mean Corpuscular Hemoglobin Concent 33.5, Mean Platelet Volume 10.3, Neutrophils (%) (Auto) 30.3, Lymphocytes (%) (Auto) 56.4, Monocytes (%) (Auto) 8.1, Eosinophils (%) (Auto) 4.9, Basophils (%) (Auto) 0.2, Neutrophils # (Auto) 2.56, Lymphocytes # (Auto) 4.76, Monocytes # (Auto) 0.68, Eosinophils # (Auto) 0.41, Basophils # (Auto) 0.02 07/19/17 20:37 Test 07/19/17 20:37 07/19/17 21:28 07/19/17 23:16 White Blood Count 8.44 K/uL (4.8-10.8) Red Blood Count 4.03 M/uL (4.2-5.4) Hemoglobin 12.2 g/dL (12.0-16.0) Hematocrit 36.4 % (37-47) Mean Corpuscular Volume 90.3 fL (80-100) Mean Corpuscular Hemoglobin 30.3 pg (25-34) Mean Corpuscular Hemoglobin Concent 33.5 g/dl (32-36) Platelet Count 213 K/uL (130-400) Mean Platelet Volume 10.3 fL (7.4-10.4) Neutrophils (%) (Auto) 30.3 % Lymphocytes (%) (Auto) 56.4 % Monocytes (%) (Auto) 8.1 % Eosinophils (%) (Auto) 4.9 % Basophils (%) (Auto) 0.2 % Neutrophils # (Auto) 2.56 K/uL (1.4-6.5) Lymphocytes # (Auto) 4.76 K/uL (1.2-3.4) Monocytes # (Auto) 0.68 K/uL (0.11-0.59) Eosinophils # (Auto) 0.41 K/uL (0-0.5) Basophils # (Auto) 0.02 K/uL (0-0.2) RDW Standard Deviation 41.3 fL (36.4-46.3) RDW Coefficient of Variation 12.5 % (11.5-14.5) Immature Granulocyte % (Auto) 0.1 % Immature Granulocyte # (Auto) 0.01 K/uL (0.00-0.02) Anion Gap 5.0 mmol/L (3-11) Est Creatinine Clear Calc Drug Dose 98.0 ml/min Estimated GFR () 119.5 Estimated GFR (Non- 103.1 BUN/Creatinine Ratio 13.3 (10-20) Calcium Level 8.9 mg/dl (8.5-10.1) Total Bilirubin 0.2 mg/dl (0.2-1) Direct Bilirubin < 0.1 mg/dl (0-0.2) Aspartate Amino Transf (AST/SGOT) 17 U/L (15-37) Alanine Aminotransferase (ALT/SGPT) 18 U/L (12-78) Alkaline Phosphatase 60 U/L (45-117) Troponin I < 0.015 ng/ml (0-0.045) Total Protein 7.5 gm/dl (6.4-8.2) Albumin 3.9 gm/dl (3.4-5.0) Lipase 157 U/L (73-393) Human Chorionic Gonadotropin, Qual NEG (NEG) Bedside D-Dimer 164 ng/mlFEU (0-450) Urine Color YELLOW Urine Appearance CLEAR (CLEAR) Urine pH 7.0 (4.5-7.5) Urine Specific [place] 1.041 (1.000-1.030) Urine Protein NEG (NEG) Urine Glucose (UA) NEG (NEG) Urine Ketones NEG (NEG) Urine Occult Blood NEG (NEG) Urine Nitrite NEG (NEG) Urine Bilirubin NEG (NEG) Urine Urobilinogen NEG (NEG) Urine Leukocyte Esterase NEG (NEG) Laboratory results reviewed by me ECG Indication: chest pain Rate (beats per minute): 59 Rhythm: sinus bradycardia Findings: no acute ischemic change, no ectopy ED Course 2050: The patient was evaluated in room A02 by the medical student under my supervision. A complete history and physical exam was performed. 2118: The patient was evaluated by me. A complete history and physical exam was performed. 2331: I reevaluated the patient and discussed current exam findings. She is waiting for her CT results. The patient is still experiencing left lower quadrant pain, but her left upper quadrant pain is gone. 2357: I reevaluated the patient. Discussed results and discharge instructions: she verbalized understanding and agreement. The patient is ready for discharge. Medical Decision Triage Nursing notes reviewed. The patient's presentation and history were concerning for chest and abdominal pain. Etiologies such as musculoskeletal, IBS, cardiac sources, PE, pericarditis, , diverticulitis, obstruction, inflammatory bowel disease, renal colic , PUD, biliary pathology, pancreatitis, mesenteric ischemia, aortic pathology, infections, genitourinary, UTI, perforated viscus, as well as others were entertained. The patient was evaluated. Clinically she is doing well. Her chest x-ray, ECG , and blood work were unremarkable. UA negative. D-dimer negative. Urgency test negative. On physical examination the patient's pain seemed to be more left-sided on her abdominal portion. She was not having any pelvic pain. CT scan of the abdomen and pelvis was performed. There was no evidence of emergent pathology. After the workup was negative the patient asked if this could be stress related that she has had recent in her family. This is possible. Without intervention the patient's pain improved. I discussed conservative management with the patient. I did discuss use of Bentyl, ibuprofen and Tylenol. She also notes trying to get back to her daily routines now that the family issues are settled. The patient will follow-up with her primary physician. If she worsens in any way she will be back. By the evaluation outlined above other emergent etiologies such as those listed in the differential, as well as others, were deemed relatively unlikely. The patient was educated about the findings as listed above. All questions were answered and the patient was pleased with the treatment. Return instructions were outlined and the patient was discharged in stable condition. The patient was referred to her pcp for follow-up for a recheck of the current condition. Impression Primary Impression: Left sided chest pain Additional Impression: Left sided abdominal pain Scribe Attestation The scribe's documentation has been prepared under my direction and personally reviewed by me in its entirety. I confirm that the note above accurately reflects all work, treatment, procedures, and medical decision making performed by me. Departure Information Dispostion Home / Self-Care Prescriptions Dicyclomine Hcl (BENTYL) 20 Mg Tab 20 MG PO QID Y for Pain, #20 TAB Prov: Cristi Alicea MD 07/20/17 Referrals RV. Flores MD (PCP) Forms HOME CARE DOCUMENTATION FORM, IMPORTANT VISIT INFORMATION Patient Instructions My [facility] Additional Instructions ABDOMINAL PAIN INSTRUCTIONS: Bentyl(dicyclomine) 20 mg: Take one tablet 4 times daily as needed for abdominal pain. If 20 mg does not seem to be enough you may increase to 40 mg 4 times daily after one week. If you do not have any results with this medication do not continue past 2 weeks from the start date. Discontinue this medication if you develop any rash, itching, increased abdominal pain, heartburn , increased nausea, constipation, or as needed. Ibuprofen(Motrin, Advil) may be used for fever or pain. Use 600mg every six hours as needed. Take with food. Avoid using more than 2400mg in a 24 hour period. Do not use 2400mg per day for more than three consecutive days without physician direction. Prolonged inappropriate use can lead to stomach upset or ulcers. (AND/OR) Acetaminophen(Tylenol) may be used for fever or pain. Use 1000mg every six hours as needed. Avoid using more than 4000mg in a 24 hour period. Rest and drink plenty of fluids as tolerated. Slow sips of water or sports drinks are recommended instead of large amounts all at once. Continue current medications. Once your stomach is settled start with a clear liquid diet (jello, soup broth, etc.) and then advance as tolerated. You should avoid full, heavy meals for about 24 hrs from the time your symptoms resolved. Avoid lactose and gluten. Return to the ER immediately for worsening or persistent abdominal pain, vomiting, fevers, chest pains, difficulty breathing, black or bloody stools, worsening of your condition, or as needed. Follow up with your primary physician tomorrow for a recheck of your current condition. Problem Qualifiers
[2017-07-20 00:15] VITALS: BP 106/64; PULSE 56; O2SAT 98
[2017-07-20] MEDS ORDERED: BENTYL HOME PACK 10 MG VIAL PO ONE (00:15)
--- NOTE | 2017-07-20 06:50 | DIAGNOSTIC IMAGING REPORT ---
ABD/PELVIS IV CONTRAST ONLY CT DOSE: 278.03 mGy.cm HISTORY: Pain left sided abd pain, bloody stool TECHNIQUE: Multiaxial CT images of the abdomen and pelvis were performed following the use of intravenous contrast. A dose lowering technique was utilized adhering to the principles of ALARA. COMPARISON STUDY: 01/19/2012 FINDINGS: Lung bases are clear. Liver spleen and pancreas are unremarkable. Kidneys negative for hydronephrosis. The adrenal glands are normal. Bowel pattern is unremarkable. No significant small bowel or colonic distention. Nonobstructive bowel pattern. Small bilateral ovarian cysts measuring 1.5 and 2.0 cm respectively on the left as well as right. IMPRESSION: Small bilateral ovarian cysts. Otherwise negative study. The above report was generated using voice recognition software. It may contain grammatical, syntax or spelling errors. Electronically signed by: Reji Sidhu M.D. 07/20/2017 6:49 AM Dictated Date/Time: 07/20/2017 6:47 AM
== END 2017-07-20 00:15 | disposition home or self-care (01) ==
LOC: C.EDB 20:25 → C.EDA 07-20 00:15
DX: R07.89 Other chest pain (principal); R00.1 Bradycardia, unspecified; Z98.890 Other specified postprocedural states; Z88.0 Allergy status to penicillin; Z82.49 Family history of ischemic heart disease and other diseases of the circulatory system; Z84.1 Family history of disorders of kidney and ureter

== ENCOUNTER → 2017-09-24 | Outpatient (CLI) | payer BC ==
[~2017-09-24] MED LIST changes: -MONT1TAB3 PO
== END | disposition home or self-care (01) ==
LOC: C.LAB1850 09:46
PROVIDERS: ATTEND Obstetrics & Gynecology
DX: O02.0 Blighted ovum and nonhydatidiform mole (principal)

== ENCOUNTER 2017-10-05 23:02 | Inpatient (IN) | payer BC ==
[~2017-10-05] VITALS: Ht 165.1 cm; Wt 65.0 kg
[2017-10-05] MEDS ORDERED: XYLOCAINE 1%/SOD BICARB 20 ML VIAL INFIL ONE (23:30)
[2017-10-05] MEDS ORDERED: BCPILLS PO (23:30)
[2017-10-05] MEDS ORDERED: SERT25TA PO (23:30)
[2017-10-06] MEDS ORDERED: LIDOCAINE/EPINEPH/TETRACAINE 1 EA SYR ONE (00:21)
[2017-10-06 02:34] LABS: BASO % 0.1 %; BASO ABS # 0.01 K/uL (0-0.2); COMPLETE YES; HEMATOCRIT 37.4 % (37-47); IG% 0.1 %; LYMPH % 33.9 %; LYMPH ABS # 3.44 K/uL (1.2-3.4); MEAN CELL VOLUME 89.7 fL (80-100); MEAN CORPUSCULAR HEMOGLOBIN 30.7 pg (25-34); MEAN CORPUSCULAR HGB CONC 34.2 g/dl (32-36); MEAN PLATELET VOLUME 9.7 fL (7.4-10.4); MONO % 6.3 %; NEUT % 58.6 %; PLATELET COUNT 236 K/uL (130-400); RED BLOOD COUNT 4.17 M/uL (4.2-5.4); WHITE BLOOD COUNT 10.14 K/uL (4.8-10.8)
[2017-10-06 03:05] LABS: BUN/CREATININE RATIO 10.2 (10-20); CALCIUM 8.5 mg/dl (8.5-10.1); CREATININE 0.76 mg/dl (0.60-1.20)
[2017-10-06 03:11] LABS: POTASSIUM 3.5 mmol/L (3.5-5.1)
[2017-10-06 03:14] LABS: PREG INTERNAL NEGATIVE QC NEG CLEAR BACKGROUND; PREG INTERNAL POSITIVE QC POS CONTROL LINE; URINE APPEARANCE CLEAR (CLEAR); URINE BILIRUBIN NEG (NEG); URINE COLOR YELLOW; URINE NITRITE NEG (NEG); URINE PH 5.5 (4.5-7.5); URINE SPECIFIC GRAVITY 1.013 (1.000-1.030); UROBILINOGEN NEG (NEG)
[2017-10-06 03:15] LABS: THYROID STIMULATING HORMONE 3.32 uIu/ml (0.300-4.500)
[2017-10-06 03:17] LABS: MANUAL MICROSCOPIC REQUIRED? NO; REVIEW REQ? NO
[2017-10-06 03:23] LABS: ACETAMINOPHEN < 2 ug/ml (10-30)
[2017-10-06 03:31] LABS: BENZODIAZEPINE, URINE NEG (NEG); COCAINE,URINE NEG (NEG); PHENCYCLIDINE, URINE NEG (NEG)
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
--- NOTE | 2017-10-06 03:32 | EMERGENCY ROOM VISIT NOTE ---
ED Visit Note First contact with patient: 23:09 Agree with the physician assistants evaluation and assessment of this patient. I discussed evaluation with the patient and patient's mother at bedside. Patient is pending disposition to psychiatry Problem List Medical Problems: (1) Appendicitis Status: Resolved (2) Appendicitis Status: Resolved (3) Molar Status: Resolved Surgical Problems: (1) History of appendectomy Status: Resolved Current/Historical Medications Scheduled Control Pills ( Control Pills), 1 TAB PO DAILY Sertraline (Zoloft), 25 MG PO DAILY Allergies Coded Allergies: Penicillins (Verified Allergy, Intermediate, HIVES/RASH, 10/05/17) Vital Signs Date Time Temp Pulse Resp B/P (MAP) Pulse Ox O2 Delivery O2 Flow Rate FiO2 10/06/17 01:04 64 16 127/60 98 Room Air 10/06/17 00:03 58 10/05/17 23:12 36.8 80 16 118/75 99 Room Air Laboratory Results 10/06/17 02:22 Red Blood Count 4.17, Mean Corpuscular Volume 89.7, Mean Corpuscular Hemoglobin 30.7, Mean Corpuscular Hemoglobin Concent 34.2, Mean Platelet Volume 9.7, Neutrophils (%) (Auto) 58.6, Lymphocytes (%) (Auto) 33.9, Monocytes (%) (Auto) 6.3, Eosinophils (%) (Auto) 1.0, Basophils (%) (Auto) 0.1, Neutrophils # (Auto) 5.94, Lymphocytes # (Auto) 3.44, Monocytes # (Auto) 0.64, Eosinophils # (Auto) 0.10, Basophils # (Auto) 0.01 10/06/17 02:22 Test 10/06/17 02:20 10/06/17 02:22 Urine Color YELLOW Urine Appearance CLEAR (CLEAR) Urine pH 5.5 (4.5-7.5) Urine Specific [place] 1.013 (1.000-1.030) Urine Protein NEG (NEG) Urine Glucose (UA) NEG (NEG) Urine Ketones NEG (NEG) Urine Occult Blood NEG (NEG) Urine Nitrite NEG (NEG) Urine Bilirubin NEG (NEG) Urine Urobilinogen NEG (NEG) Urine Leukocyte Esterase NEG (NEG) Urine Test NEG (NEG) White Blood Count 10.14 K/uL (4.8-10.8) Red Blood Count 4.17 M/uL (4.2-5.4) Hemoglobin 12.8 g/dL (12.0-16.0) Hematocrit 37.4 % (37-47) Mean Corpuscular Volume 89.7 fL (80-100) Mean Corpuscular Hemoglobin 30.7 pg (25-34) Mean Corpuscular Hemoglobin Concent 34.2 g/dl (32-36) Platelet Count 236 K/uL (130-400) Mean Platelet Volume 9.7 fL (7.4-10.4) Neutrophils (%) (Auto) 58.6 % Lymphocytes (%) (Auto) 33.9 % Monocytes (%) (Auto) 6.3 % Eosinophils (%) (Auto) 1.0 % Basophils (%) (Auto) 0.1 % Neutrophils # (Auto) 5.94 K/uL (1.4-6.5) Lymphocytes # (Auto) 3.44 K/uL (1.2-3.4) Monocytes # (Auto) 0.64 K/uL (0.11-0.59) Eosinophils # (Auto) 0.10 K/uL (0-0.5) Basophils # (Auto) 0.01 K/uL (0-0.2) RDW Standard Deviation 39.3 fL (36.4-46.3) RDW Coefficient of Variation 12.0 % (11.5-14.5) Immature Granulocyte % (Auto) 0.1 % Immature Granulocyte # (Auto) 0.01 K/uL (0.00-0.02) Anion Gap 7.0 mmol/L (3-11) Est Creatinine Clear Calc Drug Dose 104.5 ml/min Estimated GFR () 129.1 Estimated GFR (Non- 111.3 BUN/Creatinine Ratio 10.2 (10-20) Calcium Level 8.5 mg/dl (8.5-10.1) Total Bilirubin 0.5 mg/dl (0.2-1) Aspartate Amino Transf (AST/SGOT) 16 U/L (15-37) Alanine Aminotransferase (ALT/SGPT) 21 U/L (12-78) Alkaline Phosphatase 60 U/L (45-117) Total Protein 8.1 gm/dl (6.4-8.2) Albumin 4.1 gm/dl (3.4-5.0) Globulin 4.0 gm/dl (2.5-4.0) Albumin/Globulin Ratio 1.0 (0.9-2) Thyroid Stimulating Hormone (TSH) 3.320 uIu/ml (0.300-4.500) Salicylates Level < 1.7 mg/dl (2.8-20) Acetaminophen Level < 2 ug/ml (10-30) Ethyl Alcohol mg/dL < 3.0 mg/dl (0-3) Departure Information Impression Primary Impression: Suicidal behavior with attempted self-injury Additional Impression: Laceration of hand Referrals RV. Flores MD (PCP) Patient Instructions [facility] Problem Qualifiers
[2017-10-06] MEDS ORDERED: IBUPROFEN 600 MG TAB PO STA (03:52)
[2017-10-06] MEDS ORDERED: ACETAMINOPHEN 500 MG TAB PO STA (03:52)
[2017-10-06] MEDS ORDERED: NURSING VERBAL MED ORDER ONE (04:30)
[2017-10-06 04:44] VITALS: BP 127/60; PULSE 64; TEMP 36.8; Ht 165.1 cm; Wt 65.0 kg
[2017-10-06 05:00] VITALS: O2SAT 98
[2017-10-06] MEDS ORDERED: BISMUTH SUBSALICYLATE PER ML OMNICELL CHARGE PO PRN (05:15)
[2017-10-06] MEDS ORDERED: hydrOXYzine HCL 25 MG TAB PO PRN ×2 (05:15)
[2017-10-06] MEDS ORDERED: SODIUM CHLORIDE 0.65% NA SOLN 45 ML (OCEAN) PRN (05:15)
[2017-10-06] MEDS ORDERED: ALUMINUM/MAGNESIUM SUSP 30 ML UDC PO PRN (05:15)
[2017-10-06] MEDS ORDERED: MAGNESIUM HYDROXIDE SUSP 30 ML UDC PO PRN (05:15)
[2017-10-06 06:51] VITALS: BP_SYST 109; BP_SYST 127; BP_DIAS 56; BP_DIAS 60; PULSE 77; TEMP 36.8
[2017-10-06] MEDS: ACETAMINOPHEN 325 MG TAB PO PRN ×2 (07:47→19:13)
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
[2017-10-06] MEDS: BACITRACIN OINT 15 GM TUBE EXT PRN ×2 (13:26→21:54)
[2017-10-06] MEDS ORDERED: SERTRALINE HCL 50 MG TAB PO ONE (13:30)
[2017-10-07 07:57] VITALS: BP_SYST 101; BP_SYST 104; BP_DIAS 58; BP_DIAS 66; PULSE 57; PULSE 67; TEMP 36.8
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
[2017-10-07] MEDS: SERTRALINE HCL 50 MG TAB PO SCH (09:31)
[2017-10-07] MEDS ORDERED: TRAZODONE HCL 50 MG TAB PO PRN (13:00)
[2017-10-07] MEDS: BACITRACIN OINT 15 GM TUBE EXT PRN ×2 (13:37→21:58)
[2017-10-08 07:19] VITALS: BP_SYST 109; BP_SYST 99; BP_DIAS 63; BP_DIAS 67; PULSE 50; PULSE 88; TEMP 37
[2017-10-08] MEDS: SERTRALINE HCL 50 MG TAB PO SCH (09:08)
[2017-10-08] MEDS ORDERED: DSY50 PO (14:50)
[2017-10-08] MEDS ORDERED: ZLF50 PO (14:50)
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
== END 2017-10-08 16:35 | disposition home or self-care (01) | DRG 885 ==
LOC: EDBD 23:02 → C.EDB 23:04 → C.MHU 10-06 04:26 → ENRESERV 10-06 04:29
PROVIDERS: ADMIT Psychiatry & Neurology Psychiatry; ATTEND Psychiatry & Neurology Psychiatry
PROC: 0HQGXZZ Repair Left Hand Skin, External Approach (ICD-10-PCS; principal; 2017-10-06)
DX: F33.2 Major depressive disorder, recurrent severe without psychotic features (principal); R45.851 Suicidal ideations; S61.412A Laceration without foreign body of left hand, initial encounter; Z79.3 Long term (current) use of hormonal contraceptives; Z79.899 Other long term (current) drug therapy; Z88.0 Allergy status to penicillin; X78.8XXA Intentional self-harm by other sharp object, initial encounter

== ENCOUNTER 2017-10-18 18:37 | Emergency (ER) | payer BC ==
[~2017-10-18] VITALS: Ht 167.6 cm; Wt 61.5 kg
[~2017-10-18 18:37] MED LIST changes: +BCPILLS PO; +DSY50 PO; -MONT1TAB5 PO; +ZLF50 PO
[2017-10-18 18:47] VITALS: TEMP 37; Ht 167.6 cm; Wt 61.5 kg
[2017-10-18] MEDS ORDERED: MIRT15TA53 PO (19:08)
[2017-10-18] MEDS ORDERED: MONT1TAB3 PO (19:09)
--- NOTE | 2017-10-18 19:24 | EMERGENCY ROOM VISIT NOTE ---
History Report prepared by Cory: Gillian Shultz Under the Supervision of: Dr. Nish Rojas M.D. 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 She notes that her ex-boyfriend had an exchange of words. She told him, "I'm sorry for what I'm about to do." She reports being at a restaurant with her friend when her ex-boyfriend notified the police. She was recently seen at [facility] for three days for self-harm and depression October 05, 2017. She notes cutting her left hand with a razor at that time. She reports feeling fine after she left [facility]. She notes a history of depression. She takes Zoloft as prescribed. She notes her feelings of depression began again today following her encounter with her ex-boyfriend. She notes that she and her ex-boyfriend share a pet and is the reason why they stay in contact. Her stressors are her ex-boyfriend and work. She denies any plan to harm herself. She denies any history of overdoses. She denies any or other underlying physical medical problems. She denies any alcohol or illicit drug use. She currently smokes. She denies any chest pain, shortness of breath, numbness, or weakness. 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 She denies any plan to harm herself. She denies any or other underlying physical medical problems. Review of Systems See HPI for pertinent positives & negatives. A total of 10 systems reviewed and were otherwise negative. Past Medical & Surgical Medical Problems: (1) Appendicitis (2) Appendicitis (3) Boderline Personality Traits (4) Depression (5) Molar Surgical Problems: (1) History of appendectomy Old medical records were reviewed. Nurse's notes were reviewed and I agree with. Family History Hypertension Kidney stones Social History Smoking Status: Current Every Day Smoker Alcohol Use: none Drug Use: none Marital Status: single Housing Status: lives with family Occupation Status: employed Current/Historical Medications Scheduled Control Pills ( Control Pills), 1 TAB PO DAILY Mirtazapine (Mirtazapine), 15 MG PO HS Montelukast Sodium (Singulair), 10 MG PO HS Sertraline HCl (Sertraline HCl), 50 MG PO QAM Scheduled PRN Trazodone HCl (Trazodone HCl), 50 MG PO HS PRN for Insomnia Allergies Coded Allergies: Penicillins (Verified Allergy, Intermediate, HIVES/RASH, 10/18/17) Physical Exam Vital Signs Date Time Temp Pulse Resp B/P (MAP) Pulse Ox O2 Delivery O2 Flow Rate FiO2 10/18/17 23:15 52 18 106/60 99 10/18/17 21:02 80 18 125/74 95 Room Air 10/18/17 18:47 37.0 79 16 122/59 98 Room Air Physical Exam General: Non-ill appearing young female in no acute distress. HEENT: Normal cephalic atraumatic. Pupils are equal round and reactive to light. Extraocular movements are intact. Oropharynx is pink with moist mucous membranes. No swelling of the mouth lips or tongue. Neck: Supple with a midline trachea. No meningeal signs or stiffness, no JVD or bruits. No Stridor. Chest: Clear to auscultation bilaterally. No wheezes or rhonchi. No increased work of breathing. Heart: regular rate and rhythm. Abdomen: Soft nontender, nondistended without rebound guarding or rigidity. Extremities: No cyanosis clubbing or edema. No calf tenderness or assymetry. Healing laceration for previous cut to left hand. Spine/Back. Non tender to palpation. No CVA tenderness Skin: Good turgor without rashes. Neurologic exam: Cranial nerves two through 12 are intact. Motor and sensation are intact and symmetrical throughout. Psych: Normal thought processes and affect. Denies HI or SI. Medical Decision & Procedures Laboratory Results 10/18/17 19:41 Red Blood Count 4.15, Mean Corpuscular Volume 90.6, Mean Corpuscular Hemoglobin 30.6, Mean Corpuscular Hemoglobin Concent 33.8, Mean Platelet Volume 10.1, Neutrophils (%) (Auto) 46.7, Lymphocytes (%) (Auto) 41.7, Monocytes (%) (Auto) 8.4, Eosinophils (%) (Auto) 3.0, Basophils (%) (Auto) 0.1, Neutrophils # (Auto) 3.12, Lymphocytes # (Auto) 2.79, Monocytes # (Auto) 0.56, Eosinophils # (Auto) 0.20, Basophils # (Auto) 0.01 10/18/17 19:41 Test 10/18/17 19:08 10/18/17 19:41 Urine Color YELLOW Urine Appearance CLEAR (CLEAR) Urine pH 7.0 (4.5-7.5) Urine Specific [place] 1.020 (1.000-1.030) Urine Protein NEG (NEG) Urine Glucose (UA) NEG (NEG) Urine Ketones NEG (NEG) Urine Occult Blood NEG (NEG) Urine Nitrite NEG (NEG) Urine Bilirubin NEG (NEG) Urine Urobilinogen NEG (NEG) Urine Leukocyte Esterase NEG (NEG) Urine Opiates Screen NEG (NEG) Urine Methadone, Qualitative NEG (NEG) Urine Barbiturates NEG (NEG) Urine Phencyclidine (PCP) Level NEG (NEG) Ur Amphetamine/Methamphetamine NEG (NEG) MDMA (Ecstasy) Screen NEG (NEG) Urine Benzodiazepines Screen NEG (NEG) Urine Cocaine Metabolite NEG (NEG) Urine Marijuana (THC) NEG (NEG) White Blood Count 6.69 K/uL (4.8-10.8) Red Blood Count 4.15 M/uL (4.2-5.4) Hemoglobin 12.7 g/dL (12.0-16.0) Hematocrit 37.6 % (37-47) Mean Corpuscular Volume 90.6 fL (80-100) Mean Corpuscular Hemoglobin 30.6 pg (25-34) Mean Corpuscular Hemoglobin Concent 33.8 g/dl (32-36) Platelet Count 214 K/uL (130-400) Mean Platelet Volume 10.1 fL (7.4-10.4) Neutrophils (%) (Auto) 46.7 % Lymphocytes (%) (Auto) 41.7 % Monocytes (%) (Auto) 8.4 % Eosinophils (%) (Auto) 3.0 % Basophils (%) (Auto) 0.1 % Neutrophils # (Auto) 3.12 K/uL (1.4-6.5) Lymphocytes # (Auto) 2.79 K/uL (1.2-3.4) Monocytes # (Auto) 0.56 K/uL (0.11-0.59) Eosinophils # (Auto) 0.20 K/uL (0-0.5) Basophils # (Auto) 0.01 K/uL (0-0.2) RDW Standard Deviation 40.0 fL (36.4-46.3) RDW Coefficient of Variation 12.1 % (11.5-14.5) Immature Granulocyte % (Auto) 0.1 % Immature Granulocyte # (Auto) 0.01 K/uL (0.00-0.02) Anion Gap 7.0 mmol/L (3-11) Est Creatinine Clear Calc Drug Dose 101.9 ml/min Estimated GFR () 119.5 Estimated GFR (Non- 103.1 BUN/Creatinine Ratio 10.9 (10-20) Calcium Level 8.4 mg/dl (8.5-10.1) Total Bilirubin 0.2 mg/dl (0.2-1) Direct Bilirubin < 0.1 mg/dl (0-0.2) Aspartate Amino Transf (AST/SGOT) 16 U/L (15-37) Alanine Aminotransferase (ALT/SGPT) 19 U/L (12-78) Alkaline Phosphatase 58 U/L (45-117) Total Protein 7.6 gm/dl (6.4-8.2) Albumin 4.0 gm/dl (3.4-5.0) Lipase 155 U/L (73-393) Human Chorionic Gonadotropin, Qual NEG (NEG) Salicylates Level < 1.7 mg/dl (2.8-20) Acetaminophen Level < 2 ug/ml (10-30) Ethyl Alcohol mg/dL < 3.0 mg/dl (0-3) Laboratory studies as stated above per my review. ED Course 1855: Past medical records reviewed. The patient was evaluated in room A7, and a complete history and physical examination were performed. 2144: I reassessed the patient at this time. She is feeling better and resting comfortably. I spoke with patient's father. He feels she is safe to go home. She denies any suicidal thoughts. Her parents will monitor her. I discussed the results and treatment plan with the patient. I answered all pertaining questions that she had. She expressed understanding and verbalized agreement. The patient will be discharged home. 2300: I reassessed the patient. I spoke with the patient's mother. The patient feels comfortable going home with her parents. Medical Decision Differentials include, but are not limited to; depression, anxiety, and toxicological process, This patient comes in as described above. She was placed in room A7. She is here after being brought in by the police after making suicidal threats after talking to her ex-boyfriend. She was just in [facility] [address] about a week and half ago. She denies that she wants to herself. She is here with her friend and says they were at a restaurant when the police picked her up and brought her in. The boyfriend did fill out a petitioning statement. Multiple blood testing was obtained. She is medically cleared and has nothing to suggest acute toxicologic metabolic or electrolyte abnormalities. She was further evaluated by our psychiatric field case manager in the emergency department. I talked to both the father and mother as well as the patient at length. The patient does not want to be admitted. She denies that she wants to hurt herself. She does have supportive friends here and has some activities that she is looking forward to such as a [employer] and a trip with her girlfriends this weekend. Her parents think she would be best served at home and do feel she is safe. They think this all stems from her relationship with her ex-boyfriend and she's fine until she talks to him. I encouraged her not to talk to him anymore. She says she was not going to hurt herself earlier but was just very upset. She did sign a release to have this sent to her psychiatrist and doctors. She also is going to go home with her parents and watch her tonight and take her to work in the morning. They all feel she is safe to go home. She denies suicidal or homicidal ideations. She was encouraged to return if anything changes or she has thoughts of hurting herself or others any new problems. She is happy with plan and discharged to home. Medication Reconcilliation Current Medication List: was personally reviewed by me Blood Pressure Screening Patient's blood pressure: Normal blood pressure Impression Primary Impression: Depression Scribe Attestation The scribe's documentation has been prepared under my direction and personally reviewed by me in its entirety. I confirm that the note above accurately reflects all work, treatment, procedures, and medical decision making performed by me. Departure Information Dispostion Home / Self-Care Referrals RV. Flores MD (PCP) Forms HOME CARE DOCUMENTATION FORM, IMPORTANT VISIT INFORMATION Patient Instructions My [facility] Additional Instructions Rest Drink plenty of fluids Return if: Worsening of symptoms, thoughts of hurting herself or others, any new problems or concerns Ensure that you are taking her medications as directed and keeping your follow- up with your counselor Return to the ER any point if symptoms worsen
[2017-10-18 19:45] LABS: BENZODIAZEPINE, URINE NEG (NEG); COCAINE,URINE NEG (NEG); PHENCYCLIDINE, URINE NEG (NEG)
[2017-10-18 20:02] LABS: BASO % 0.1 %; BASO ABS # 0.01 K/uL (0-0.2); COMPLETE YES; HEMATOCRIT 37.6 % (37-47); IG% 0.1 %; LYMPH % 41.7 %; LYMPH ABS # 2.79 K/uL (1.2-3.4); MEAN CELL VOLUME 90.6 fL (80-100); MEAN CORPUSCULAR HEMOGLOBIN 30.6 pg (25-34); MEAN CORPUSCULAR HGB CONC 33.8 g/dl (32-36); MEAN PLATELET VOLUME 10.1 fL (7.4-10.4); MONO % 8.4 %; NEUT % 46.7 %; PLATELET COUNT 214 K/uL (130-400); RED BLOOD COUNT 4.15 M/uL (4.2-5.4); WHITE BLOOD COUNT 6.69 K/uL (4.8-10.8)
[2017-10-18 20:18] LABS: PREG INTERNAL NEGATIVE QC NEG CLEAR BACKGROUND; PREG INTERNAL POSITIVE QC POS CONTROL LINE
[2017-10-18 20:32] LABS: ACETAMINOPHEN < 2 ug/ml (10-30)
[2017-10-18 20:38] LABS: ALT/SGPT 19 U/L (12-78); BLOOD UREA NITROGEN 9 mg/dl (7-18); BUN/CREATININE RATIO 10.9 (10-20); CALCIUM 8.4 mg/dl (8.5-10.1); CARBON DIOXIDE 25 mmol/L (21-32); CHLORIDE 106 mmol/L (98-107); CREATININE 0.81 mg/dl (0.60-1.20); GLUCOSE 78 mg/dl (70-99); POTASSIUM 3.5 mmol/L (3.5-5.1); SODIUM 138 mmol/L (136-145)
[2017-10-18 20:41] LABS: ALKALINE PHOSPHATASE 58 U/L (45-117); AST/SGOT 16 U/L (15-37)
[2017-10-18 20:55] LABS: URINE APPEARANCE CLEAR (CLEAR); URINE BILIRUBIN NEG (NEG); URINE COLOR YELLOW; URINE NITRITE NEG (NEG); UROBILINOGEN NEG (NEG); ZZUR CULT IF INDIC CLEAN CATCH NO
[2017-10-18 20:58] LABS: MANUAL MICROSCOPIC REQUIRED? NO; REVIEW REQ? NO
[2017-10-18 23:15] VITALS: BP 106/60; PULSE 52; O2SAT 99
== END 2017-10-18 23:39 | disposition home or self-care (01) ==
LOC: C.EDB 18:38 → C.EDA 23:39
DX: F32.9 Major depressive disorder, single episode, unspecified (principal); F17.200 Nicotine dependence, unspecified, uncomplicated; Z91.5 Personal history of self-harm; Z87.59 Personal history of other complications of pregnancy, childbirth and the puerperium; Z90.89 Acquired absence of other organs; Z84.1 Family history of disorders of kidney and ureter; Z82.49 Family history of ischemic heart disease and other diseases of the circulatory system; Z79.899 Other long term (current) drug therapy

== ENCOUNTER → 2017-11-07 | Outpatient (CLI) | payer BC ==
[~2017-11-07] MED LIST changes: -DSY50 PO; +MIRT15TA53 PO; +MONT1TAB3 PO; +OMEP40CA41 PO; +TRAZ1TAB49 PO
--- NOTE | 2017-11-07 14:09 | DIAGNOSTIC IMAGING REPORT ---
R SHOULDER MIN 2 VIEWS ROUTINE CLINICAL HISTORY: M25.511 Right shoulder [id number] COMPARISON: 10/19/2016 DISCUSSION: No fractures or dislocations are visualized. There are no erosive or destructive changes. There is slight offset involving the undersurface of the acromion with the undersurface of the clavicle. This remain stable. IMPRESSION: 1. No acute fractures or dislocations identified 2. Persistent slight offset involving the undersurface of the acromion with the undersurface of the clavicle. 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 11/07/2017 2:08 PM Dictated Date/Time: 11/07/2017 2:06 PM
== END | disposition home or self-care (01) ==
LOC: C.RAD1850 13:46
PROVIDERS: ATTEND Internal Medicine
DX: M25.511 Pain in right shoulder (principal); R93.7 Abnormal findings on diagnostic imaging of other parts of musculoskeletal system

== ENCOUNTER 2018-06-25 13:30 | Emergency (ER) | payer BC ==
[~2018-06-25] VITALS: Ht 162.6 cm; Wt 62.6 kg
[~2018-06-25 13:30] MED LIST changes: -OMEP40CA41 PO
[2018-06-25 13:36] VITALS: TEMP 36.8; Ht 162.6 cm; Wt 62.6 kg
[2018-06-25] MEDS ORDERED: SODIUM CHLORIDE 0.9% 1000ML 1,000 ML IV STA (13:58)
[2018-06-25] MEDS ORDERED: GI COCKTAIL PO STA (13:58)
[2018-06-25] MEDS ORDERED: ONDANSETRON INJ 2 MG/ML 2 ML VIAL IV STA (13:58)
[2018-06-25] MEDS ORDERED: KETOROLAC TROMETHAMINE 15 MG/ML VIAL IV STA (13:58)
[2018-06-25] MEDS ORDERED: LIDOCAINE HCL 2% VISC SOLN 20 ML UDC ONE (14:06)
[2018-06-25] MEDS ORDERED: ALUMINUM/MAGNESIUM SUSP 30 ML UDC ONE (14:06)
[2018-06-25 14:07] LABS: BASO % 0.1 %; BASO ABS # 0.01 K/uL (0-0.2); EOS % 0.2 %; EOS ABS # 0.02 K/uL (0-0.5); HEMATOCRIT 40.4 % (37-47); HEMOGLOBIN 13.6 g/dL (12.0-16.0); IG# 0.01 K/uL (0.00-0.02); LYMPH % 28.1 %; LYMPH ABS # 2.43 K/uL (1.2-3.4); MEAN CELL VOLUME 89.4 fL (80-100); MEAN CORPUSCULAR HEMOGLOBIN 30.1 pg (25-34); MEAN CORPUSCULAR HGB CONC 33.7 g/dl (32-36); MEAN PLATELET VOLUME 9.7 fL (7.4-10.4); MONO % 6.9 %; NEUT % 64.6 %; NEUT ABS # 5.58 K/uL (1.4-6.5); PLATELET COUNT 207 K/uL (130-400); RED CELL DISTRIBUTION WIDTH CV 12.6 % (11.5-14.5); RED CELL DISTRIBUTION WIDTH SD 40.4 fL (36.4-46.3); WHITE BLOOD COUNT 8.65 K/uL (4.8-10.8)
[2018-06-25 14:32] LABS: ALBUMIN 4.3 gm/dl (3.4-5.0); CALCIUM 9.1 mg/dl (8.5-10.1); CREATININE 0.81 mg/dl (0.60-1.20); POTASSIUM 3.8 mmol/L (3.5-5.1); TOTAL PROTEIN 8.4 gm/dl (6.4-8.2)
--- NOTE | 2018-06-25 15:27 | DIAGNOSTIC IMAGING REPORT ---
PA CHEST RADIOGRAPH AND UPRIGHT AND SUPINE AP RADIOGRAPHS OF THE ABDOMEN CLINICAL HISTORY: Upper abdominal pain and nausea. COMPARISON STUDY: Chest radiograph and CT of the abdomen and pelvis July 19, 2017. FINDINGS: Lung volumes are normal. Lungs are clear. No pneumothorax or pleural effusion is noted. Cardiac size is normal. Mediastinal contours are normal. There is no evidence for pulmonary edema. There is no free air. Bowel gas pattern is normal. A moderate amount stool is noted within the colon. Pelvic calcifications reflect phleboliths. IMPRESSION: 1. No free air or evidence of bowel obstruction. 2. No acute cardiopulmonary findings. 3. Moderate amount of stool within the colon. Electronically signed by: Romario Calle M.D. 06/25/2018 3:26 PM Dictated Date/Time: 06/25/2018 3:24 PM
[2018-06-25] MEDS ORDERED: MoRPHine SULFATE 4 MG/ML 1 ML CARP\\VIAL IV STA (15:30)
[2018-06-25] MEDS ORDERED: OMEP40CA41 PO (16:04)
--- NOTE | 2018-06-25 16:07 | EMERGENCY ROOM VISIT NOTE ---
History First contact with patient: 13:38 Chief Complaint: ABDOMINAL PAIN Stated Complaint: SEVERE ABDOMINAL PAIN Nursing Triage Summary: Generalized abd pain for the past hour. associated nausea. History of Present Illness The patient is a 22 year old female who presents to the Emergency Room with complaints of abdominal pain. The patient reports that she developed abdominal pain 1 hour ago right after eating lunch. She states that the pain is a stabbing, severe pain all over her abdomen. She rates the discomfort a 10/10. She reports associated nausea but denies vomiting. She states that she had a cucumber and strawberries for lunch. She reports a similar episode of pain which occurred last week. She states that the pain lasted all night and went away on its own without any treatment. She states that she has had occasional bloating and abdominal pain over the past few months. She occasionally takes Pepto-Bismol without relief. She has not yet seen her primary care provider regarding this. She has a history of appendectomy but denies any other history of abdominal issues. She denies urinary symptoms, fevers, menstrual irregularities, or abnormal vaginal discharge. Review of Systems A complete 10 point review of systems was reviewed with the patient with pertinent positives and negatives as per history of present illness. All else were negative. Past Medical/Surgical History Medical Problems: (1) Appendicitis (2) Appendicitis (3) Boderline Personality Traits (4) Depression (5) Molar Surgical Problems: (1) History of appendectomy Family History Hypertension Kidney stones Social History Smoking Status: Never Smoker Alcohol Use: none Drug Use: none Marital Status: single Housing Status: lives with family Occupation Status: employed Current/Historical Medications Scheduled Control Pills ( Control Pills), 1 TAB PO DAILY Omeprazole (Prilosec), 40 MG PO DAILY Sertraline HCl (Sertraline HCl), 50 MG PO QAM Scheduled PRN Trazodone HCl (Trazodone HCl), 50 MG PO HS PRN for Insomnia Physical Exam Vital Signs Date Time Temp Pulse Resp B/P (MAP) Pulse Ox O2 Delivery O2 Flow Rate FiO2 06/25/18 16:32 62 20 115/62 100 06/25/18 15:13 59 18 106/57 99 Room Air 06/25/18 13:36 36.8 68 16 123/77 99 Room Air Physical Exam VITALS: Vitals are noted on the nurse's note and reviewed by myself. Vital signs stable. GENERAL: This is a 22-year-old female, in no acute distress, nondiaphoretic, well-developed well-nourished. SKIN: No rashes noted. HEART: Regular rate and rhythm without murmurs gallops or rubs. LUNGS: Clear to auscultation bilaterally without wheezes, rales or rhonchi. ABDOMEN: Positive bowel sounds x 4. Soft, nondistended without masses or organomegaly. There is mild tenderness to palpation of the epigastric region, left upper quadrant and left mid abdomen. No guarding or rebound tenderness. NEURO: Patient was alert and oriented to person place and time. Medical Decision & Procedures ER Provider Diagnostic Interpretation: PA CHEST RADIOGRAPH AND UPRIGHT AND SUPINE AP RADIOGRAPHS OF THE ABDOMEN FINDINGS: Lung volumes are normal. Lungs are clear. No pneumothorax or pleural effusion is noted. Cardiac size is normal. Mediastinal contours are normal. There is no evidence for pulmonary edema. There is no free air. Bowel gas pattern is normal. A moderate amount stool is noted within the colon. Pelvic calcifications reflect phleboliths. IMPRESSION: 1. No free air or evidence of bowel obstruction. 2. No acute cardiopulmonary findings. 3. Moderate amount of stool within the colon. Laboratory Results 06/25/18 13:55 Red Blood Count 4.52, Mean Corpuscular Volume 89.4, Mean Corpuscular Hemoglobin 30.1, Mean Corpuscular Hemoglobin Concent 33.7, Mean Platelet Volume 9.7, Neutrophils (%) (Auto) 64.6, Lymphocytes (%) (Auto) 28.1, Monocytes (%) (Auto) 6.9, Eosinophils (%) (Auto) 0.2, Basophils (%) (Auto) 0.1, Neutrophils # (Auto) 5.58, Lymphocytes # (Auto) 2.43, Monocytes # (Auto) 0.60, Eosinophils # (Auto) 0.02, Basophils # (Auto) 0.01 06/25/18 13:55 Test 06/25/18 13:55 06/25/18 14:40 White Blood Count 8.65 K/uL (4.8-10.8) Red Blood Count 4.52 M/uL (4.2-5.4) Hemoglobin 13.6 g/dL (12.0-16.0) Hematocrit 40.4 % (37-47) Mean Corpuscular Volume 89.4 fL (80-100) Mean Corpuscular Hemoglobin 30.1 pg (25-34) Mean Corpuscular Hemoglobin Concent 33.7 g/dl (32-36) Platelet Count 207 K/uL (130-400) Mean Platelet Volume 9.7 fL (7.4-10.4) Neutrophils (%) (Auto) 64.6 % Lymphocytes (%) (Auto) 28.1 % Monocytes (%) (Auto) 6.9 % Eosinophils (%) (Auto) 0.2 % Basophils (%) (Auto) 0.1 % Neutrophils # (Auto) 5.58 K/uL (1.4-6.5) Lymphocytes # (Auto) 2.43 K/uL (1.2-3.4) Monocytes # (Auto) 0.60 K/uL (0.11-0.59) Eosinophils # (Auto) 0.02 K/uL (0-0.5) Basophils # (Auto) 0.01 K/uL (0-0.2) RDW Standard Deviation 40.4 fL (36.4-46.3) RDW Coefficient of Variation 12.6 % (11.5-14.5) Immature Granulocyte % (Auto) 0.1 % Immature Granulocyte # (Auto) 0.01 K/uL (0.00-0.02) Anion Gap 7.0 mmol/L (3-11) Est Creatinine Clear Calc Drug Dose 93.3 ml/min Estimated GFR () 118.6 Estimated GFR (Non- 102.4 BUN/Creatinine Ratio 15.8 (10-20) Calcium Level 9.1 mg/dl (8.5-10.1) Total Bilirubin 0.5 mg/dl (0.2-1) Aspartate Amino Transf (AST/SGOT) 19 U/L (15-37) Alanine Aminotransferase (ALT/SGPT) 23 U/L (12-78) Alkaline Phosphatase 62 U/L (45-117) Total Protein 8.4 gm/dl (6.4-8.2) Albumin 4.3 gm/dl (3.4-5.0) Globulin 4.1 gm/dl (2.5-4.0) Albumin/Globulin Ratio 1.0 (0.9-2) Lipase 141 U/L (73-393) Urine Color DK YELLOW Urine Appearance CLEAR (CLEAR) Urine pH 5.0 (4.5-7.5) Urine Specific [place] 1.022 (1.000-1.030) Urine Protein NEG (NEG) Urine Glucose (UA) NEG (NEG) Urine Ketones NEG (NEG) Urine Occult Blood NEG (NEG) Urine Nitrite NEG (NEG) Urine Bilirubin NEG (NEG) Urine Urobilinogen NEG (NEG) Urine Leukocyte Esterase TRACE (NEG) Urine WBC (Auto) 1-5 /hpf (0-5) Urine RBC (Auto) 0-4 /hpf (0-4) Urine Hyaline Casts (Auto) 0 /lpf (0-5) Urine Epithelial Cells (Auto) 20-30 /lpf (0-5) Urine Bacteria (Auto) NEG (NEG) Urine Test NEG (NEG) Medications Administered Medications (Trade) Dose Ordered Sig/Juan Route Start Time Stop Time Status Last Admin Dose Admin Sodium Chloride 1,000 ml @ 999 mls/hr Q1H1M STAT IV 06/25/18 13:58 06/25/18 14:58 DC 06/25/18 14:14 999 MLS/HR Ondansetron HCl (Zofran Inj) 4 mg NOW STAT IV 06/25/18 13:58 06/25/18 14:00 DC 06/25/18 14:11 4 MG Ketorolac Tromethamine (Toradol Inj) 15 mg NOW STAT IV 06/25/18 13:58 06/25/18 14:00 DC 06/25/18 14:13 15 MG Al Hydroxide/Mg Hydroxide (Maalox Susp) 30 ml STK-MED ONCE .ROUTE 06/25/18 14:06 06/25/18 14:07 DC 06/25/18 14:14 30 ML Lidocaine HCl (Viscous Lidocaine 2% Soln) 20 ml STK-MED ONCE .ROUTE 06/25/18 14:06 06/25/18 14:07 DC 06/25/18 14:13 20 ML Morphine Sulfate (MoRPHine SULFATE INJ) 4 mg NOW STAT IV 06/25/18 15:30 06/25/18 15:31 DC 06/25/18 15:35 4 MG Medical Decision Differential diagnosis includes gastritis, gastroenteritis, cholecystitis, pancreatitis, bowel obstruction, constipation, kidney stone, among others. The patient is a 22-year-old female who presents today complaining of abdominal pain. Labs revealed no leukocytosis, anemia or concerning electrolyte abnormalities. LFTs, kidney function within normal limits. Urinalysis was not suggestive of infection. Urine was negative. Abdominal series was performed and was negative. Patient was treated as above with some improvement of her symptoms. She was advised to start a PPI at home and follow-up with her PCP for recheck this week. She was advised to keep a bland diet. She will return here with any worsening or new/concerning symptoms. The patient's case was reviewed with Dr. Calvert, ED attending physician, who agreed with my assessment and treatment plan. Based on the patient's presentation and work up, I feel the patient is stable for outpatient treatment. The patient was educated to return to the emergency department for any worsening of their current condition or new/concerning symptoms. She will follow up with her PCP. Medication Reconcilliation Current Medication List: was personally reviewed by me Blood Pressure Screening Patient's blood pressure: Normal blood pressure Impression Primary Impression: Epigastric abdominal pain Departure Information Dispostion Home / Self-Care Condition GOOD Prescriptions Omeprazole (PRILOSEC) 40 Mg Cap 40 MG PO DAILY for 14 Days, #14 CAP Prov: Mago Dia ., MILLIE 06/25/18 Referrals RV. Flores MD (PCP) Patient Instructions My [facility] Additional Instructions You have been treated in the Emergency Department for your Abdominal Pain. Laboratory results and imaging studies have ruled out any emergent causes for your abdominal pain which would warrant admission or surgery. Take the Prilosec daily as prescribed. For pain control, you can use the following ybru-iol-pdjidad medicines (if >12 yo): - Regular strength (325mg/tab) Tylenol (acetaminophen) 2 tabs every 4-6 hours as needed. Do not exceed 12 tablets in a 24 hour period. Avoid taking more than 4 grams (4000 mg) of Tylenol per day. This includes any other sources of acetaminophen you may take on a regular basis. Drink plenty of water and stay well hydrated. Your x-ray showed some constipation. You may use MiraLAX [id number] as directed to help with constipation. As with any trip to the Emergency Department, you should follow-up with your Primary Care Provider from today's visit. You may also consider following up with a fender finisher for further evaluation of your abdominal pain. Return to the emergency department if your symptoms persist despite treatment plan outlined above or if the following symptoms occur: Worsening pain, fevers, vomiting or other new/concerning symptoms.
[2018-06-25 16:32] VITALS: BP 115/62; PULSE 62; O2SAT 100
== END 2018-06-25 16:34 | disposition home or self-care (01) ==
LOC: C.EDB 13:31
DX: R10.13 Epigastric pain (principal); F32.9 Major depressive disorder, single episode, unspecified; Z79.3 Long term (current) use of hormonal contraceptives; Z79.899 Other long term (current) drug therapy

== ENCOUNTER 2023-02-23 07:38 | Inpatient (IN) ==
[2023-02-23] MEDS ORDERED: OXYTOCIN 30 UNITS/500 ML BAG IV PRN ×2 (07:44→07:46)
[2023-02-23] MEDS ORDERED: LIDOCAINE 1% LOCAL 20 ML VIAL INFIL PRN (07:44)
[2023-02-23 08:24] LABS: Hematocrit (blood only) 30.5 % (37.0-47.0); Hemoglobin 9.8 g/dl (12.0-16.0); Mean Corpuscular Hemoglobin 25.7 pg (25.0-34.0); Mean Corpuscular Hgb Conc 32.1 g/dL (32.0-36.0); Mean Corpuscular Volume 79.8 fL (80.0-100.0); Mean Platelet Volume 10.8 fL (9.4-12.4); Platelet Count 334 K/uL (130-400); RDW Standard Deviation 40.9 fL (36.4-46.3); Red Blood Count 3.82 M/uL (4.20-5.40); White Blood Count 13.52 K/ul (4.8-10.8)
--- NOTE | 2023-02-23 08:37 | History & Physical Report ---
Date of Service February 23, 2023 Assessment & Plan (1) Headache in , antepartum: (2) Hypothyroidism affecting : (3) Encounter for supervision of in second trimester with history of molar : (4) History of molar , antepartum: (5) Anemia: (6) History of thyroid disorder: Plan Nadine is a 27 y/o female at [place] 39w3d who presents today for elective induction. -Plan to proceed with elective induction, will start Pitocin -O+/GBS negative/Rubella immune -Berry bulb removed -5/80%/-2, fetus cat 1 -Patient desires epidural prior to rupture of membranes Admission and Anticipated Discharge Date Admission Date: February 23, 2023 History of Present Illness Primary Care Provider: ERICKA Kirkland Nadine is a 27 y/o female at [place] 39w3d who presents today for elective induction. She has a history of a prior molar which required D&C. She has subclinical hypothyroidism, is taking Synthroid. Last night she had a berry balloon placed- had some minimal bleeding after placement but no additional bleeding or loss of fluid since. + movement and notes some contractions. [facility] TECHNICIAN History -Last PAP (05/26) NL, no prior abnormal results -Has a history of chlamydia 1 year ago, no other STDs. Gonorrhea/Chlamydia screen negative in this Del. Date GA wks Lbr Lgth wt Sex Type del Anes Place Del Prov ? Comment 03/23/17 Molar D&E 05/31/17 Aborted-Elective Please Do not disclose to spouse OB Labs: Blood Type O Positive 07/24/22 Antibody Screen NEGATIVE 07/24/22 Hemoglobin 11.0 g/dl (12.0-16.0) L 12/05/22 Hematocrit 32.5 % (37.0-47.0) L 12/05/22 Mean Corpuscular Volume 91.0 fL (80.0-100.0) 10/09/22 Platelet Count 251 K/uL (130-400) 10/09/22 Rubella IgG Antibody Immune (Immune) 07/24/22 Rapid Plasma Reagin Nonreactive (Nonreactive) 07/24/22 Hepatitis B Surface Antigen Neg (Neg) 04/10/19 Hepatitis B Surface Antigen. NON-REACTIVE (NON-REACTIVE) 07/24/22 Hepatitis C Antibody (EIA) NON-REACTIVE (NON-REACTIVE) 07/24/22 HIV (1&2) Ab and P24 Ag, 4th Gener Neg (Neg) 04/10/19 HIV (1&2) Ag and Ab Confirmation NON-REACTIVE (NON-REACTIVE) 07/24/22 Glucose 1 Hour 50 gm Load 117 mg/dl (70-130) 12/05/22 OB Optional Labs: Chlamydia trachomatis RNA Not Detected (NotDetected) 07/24/22 Neisseria gonorrhoeae RNA Not Detected (NotDetected) 07/24/22 Thyroid Stimulating Hormone (TSH) 1.969 uIu/ml (0.300-4.500) 01/02/23 Labs Reviewed: Declines cf/sma/cfdna--mln Allergies Allergy/AdvReac Type Severity Reaction Status Date / Time cat dander Allergy Unknown SNEEZING, Verified 02/20/23 13:28 WATERY EYES dog dander Allergy Unknown SNEEZING, Verified 02/20/23 13:28 WATERY EYES grass pollen Allergy Unknown SNEEZING, Verified 02/20/23 13:28 WATERY EYES house dust mite Allergy Unknown SNEEZING, Verified 02/20/23 13:28 WATERY EYES mold Allergy Unknown SNEEZING, Verified 02/20/23 13:28 WATERY EYES Penicillins Allergy Unknown Hives Verified 02/20/23 13:28 ragweed pollen Allergy Unknown SNEEZING, Verified 02/20/23 13:28 WATERY EYES tree and shrub pollen Allergy Unknown SNEEZING, Verified 02/20/23 13:28 WATERY EYES weed pollen Allergy Unknown SNEEZING, Verified 02/20/23 13:28 WATERY EYES Patient History Medical History Asthma H/O EXERCISE INDUCED ASTHMA. WELL CONTROLLED Chlamydia GI problem "STOMACH ISSUES" - REASON FOR UPCOMING PROCEDURE History of chicken pox History of COVID-19 WILL BE 30 DAYS ON JUL 27 PER PT, COLD SYMTPOMS - ALL SYMPTOMS RESOLVED. DENIES CURRENT. Surgical History History of appendectomy History of dental surgery WISDOM TEETH History of dilatation and curettage History of laparoscopy 11/18/2018. 6.5 ETT. Grade 1 view. no issues. History of oral surgery MULTIPLE ROOT CANALS Hx of nasal septoplasty Hx of sinus surgery Image Guided Endoscopic Sinus Surgery, Septoplasty, and Bilateral Inferior Turbinate Reduction - 01/24/19 Family History Grandfather (Maternal) Family history of diabetes mellitus Father Hypertension Grandfather Deafness Mother Allergies Grandmother (Maternal) Hypertension Thyroid cancer Denies family history of Colon cancer Pancreatic cancer Ovarian cancer Prostate cancer Breast cancer Uterus cancer Social History Smoking Status: Never smoker Second Hand Exposure: No; Do You Dip or Chew Tobacco: No; Tobacco Cessation Education Requested by Patient: No Hx Alcohol Use: No Hx Substance Use: No Preferred Language: Azerbaijani Communication Ability: Effective Specimen Accessioner Required: No Beliefs That Will Affect Care: None marital status: marital status details: Francisco Javier Joy (30) [phone] Current Living Situation: Spouse Current Living Situation Comment: Francisco Javier- current occupational status: employed 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 Respiratory: Normal respiratory effort. No cough. Cardiovascular: Heart rate regular. Bilateral lower extremity edema Skin: no rashes, warm and dry Psychiatric: A+Ox3, euthymic affect Genitourinary: Manual OB Exam: + cervical dilation 5 cm, + cervical effacement 80% and + station -2 OB Exam Monitor Tracing: + external FHT monitor used and + category I Results & Data Vital Signs (Past 12 Hours) Vital Signs Temp Pulse Resp BP 02/23/23 07:51 104 H 132/60 02/23/23 08:09 36.7 C 20 132/60 Supervising Physician Co-Signing Physician Notes Resident Physician Supervision Note: I interviewed and examined the patient. Discussed with Dr. Regalado and agree with findings and plan as documented in the note. Any exceptions or clarifications are listed here: iup at 39 3/7 who presents for elective induction. essentially uncomplicated. berry placed last night. Removed this am--/-2. Category one fetus, occasional contractions. Plan pit induction, epidural on demand, arom when indicated. anticipate . Documented By: Glenna Anne MD, FACOG Resident Activity Tracking Resident Involvement: Resident Care Provided Care Provided: OB Delivery
[2023-02-23] MEDS: LACTATED RINGER'S 1,000 ML IV PRN ×4 (08:52→17:12)
[2023-02-23] MEDS ORDERED: ePHEDrine sulfate 50 MG/ML AMP ONE (10:37)
[2023-02-23] MEDS ORDERED: fentaNYL citrate PF 100 MCG/2 ML VIAL ONE (10:38)
[2023-02-23] MEDS ORDERED: SODIUM CHLORIDE 0.9% PF INJ 10 ML VIAL ONE (10:38)
[2023-02-23] MEDS ORDERED: BUPIVACAINE 0.25% PF 30 ML VIAL ONE ×2 (10:39→17:53)
[2023-02-23] MEDS ORDERED: fentaNYL 2MCG/ML ROPIVACAINE 1.25MG/ML 100 ML BAG EPI ONE (10:39)
[2023-02-23] MEDS ORDERED: LIDOCAINE 2%/EPINEPHRINE 1:200,000 20 ML PF ONE ×3 (10:39→22:03)
[2023-02-23] MEDS ORDERED: NALBUPHINE HCL INJ 10 MG/ML AMP IV PRN ×2 (10:48→22:45)
[2023-02-23] MEDS ORDERED: ONDANSETRON INJ 2 MG/ML 2 ML VIAL IV PRN ×2 (10:48→22:45)
[2023-02-23] MEDS ORDERED: NALOXONE HCL 0.4 MG/1 ML VIAL/CARP IV PRN ×2 (10:48→22:45)
[2023-02-23] MEDS ORDERED: ePHEDrine sulfate 50 MG/ML AMP IV PRN ×2 (10:48→22:45)
[2023-02-23] MEDS ORDERED: NALOXONE HCL 1 MG in SODIUM CHLORIDE 0.9% 1000ML 1,000 ML IV PRN ×2 (10:48→22:45)
[2023-02-23] MEDS ORDERED: diphenhydrAMINE 50 MG/ML VIAL IV PRN ×2 (10:48→22:45)
--- NOTE | 2023-02-23 10:50 | Anesthesiology Consultation ---
Date of Service February 23, 2023 Assessment & Plan Chart Review Chart Review: Patient NOT seen in Pre Admission Testing and Acceptable Risk for Labor Epidural Consults Requested none History Height/Weight Height: 5 ft 5 in Weight: 93.894 kg Allergies Allergy/AdvReac Type Severity Reaction Status Date / Time cat dander Allergy Unknown SNEEZING, Verified 02/20/23 13:28 WATERY EYES dog dander Allergy Unknown SNEEZING, Verified 02/20/23 13:28 WATERY EYES grass pollen Allergy Unknown SNEEZING, Verified 02/20/23 13:28 WATERY EYES house dust mite Allergy Unknown SNEEZING, Verified 02/20/23 13:28 WATERY EYES mold Allergy Unknown SNEEZING, Verified 02/20/23 13:28 WATERY EYES Penicillins Allergy Unknown Hives Verified 02/20/23 13:28 ragweed pollen Allergy Unknown SNEEZING, Verified 02/20/23 13:28 WATERY EYES tree and shrub pollen Allergy Unknown SNEEZING, Verified 02/20/23 13:28 WATERY EYES weed pollen Allergy Unknown SNEEZING, Verified 02/20/23 13:28 WATERY EYES Medications Active Medications Generic Name Dose Route Start Last Admin Trade Name Freq PRN Reason Stop Dose Admin Lactated Ringer's 1,000 mls @ 125 mls/hr 02/23/23 07:44 02/23/23 10:59 Lr IV 02/25/23 07:43 999 mls/hr .Q8H PRN Administration L&D Protocol Protocol Oxytocin 30 units in 500 mls @ 8 mls/hr 02/23/23 07:46 02/23/23 10:30 Pitocin IV 02/25/23 07:45 0.48 units/hr .Q24H PRN 8 mls/hr Labor Induction/Augmentation Titration Protocol 0.48 UNITS/HR Past Medical History Medical History Asthma H/O EXERCISE INDUCED ASTHMA. WELL CONTROLLED Chlamydia GI problem "STOMACH ISSUES" - REASON FOR UPCOMING PROCEDURE History of chicken pox History of COVID-19 WILL BE 30 DAYS ON JUL 27 PER PT, COLD SYMTPOMS - ALL SYMPTOMS RESOLVED. DENIES CURRENT. Past Family History Family History Grandfather (Maternal) Family history of diabetes mellitus Father Hypertension Grandfather Deafness Mother Allergies Grandmother (Maternal) Hypertension Thyroid cancer Denies family history of Colon cancer Pancreatic cancer Ovarian cancer Prostate cancer Breast cancer Uterus cancer Past Surgical History Surgical History History of appendectomy History of dental surgery WISDOM TEETH History of dilatation and curettage History of laparoscopy 11/18/2018. 6.5 ETT. Grade 1 view. no issues. History of oral surgery MULTIPLE ROOT CANALS Hx of nasal septoplasty Hx of sinus surgery Image Guided Endoscopic Sinus Surgery, Septoplasty, and Bilateral Inferior Turbinate Reduction - 01/24/19 Past Anesthesia History No Hx of Anesthesia Complications and No Family Hx of Anesthesia Complications History of PONV No Hx of PONV and No Hx of Motion Sickness Social History Smoking Status: Never smoker tobacco type: cigarettes Do You Dip or Chew Tobacco: No Hx Alcohol Use: No Alcohol type: hard liquor alcohol intake frequency: holidays/special occasions only Hx Substance Use: No substance use type: does not use Physical Exam Vital Signs Last Vital Signs Temp 36.7 C 02/23/23 08:09 Pulse 100 H 02/23/23 11:07 Resp 20 02/23/23 08:09 BP 127/66 02/23/23 11:07 Pulse Ox 99 02/23/23 11:05 Testing Laboratory Results 02/23/23 07:52
--- NOTE | 2023-02-23 12:35 | Labor Progress Brief Note ---
Date of Service February 23, 2023 Subjective Comfortable after epidural. srom then and clear. Assessment & Plan (1) Encounter for induction of labor: Plan Continue current management. Fetus category one. Anticipate . Admission and Anticipated Discharge Date Admission Date: February 23, 2023 Physical Exam Physical Exam: cx--6-7/100/-2 toco--q2-3min, pit at 8 efm--115 with mod variabiltiy, accels to 150s, no decels Results & Data Vital Signs (Past 12 Hours) Vital Signs Temp Pulse Resp BP Pulse Ox 02/23/23 12:30 86 100 02/23/23 12:25 80 98 02/23/23 12:20 81 118/62 97 02/23/23 12:15 88 97 02/23/23 12:14 95 H 92 02/23/23 12:10 87 97 02/23/23 12:08 84 93 02/23/23 12:05 82 97 02/23/23 12:06 80 118/60 02/23/23 12:00 16 02/23/23 12:00 73 16 95 02/23/23 11:55 75 96 02/23/23 11:50 75 106/57 L 97 02/23/23 11:45 82 96 02/23/23 11:40 82 99 02/23/23 11:35 86 97 02/23/23 11:30 76 18 97 02/23/23 11:27 76 126/67 02/23/23 11:14 16 02/23/23 11:14 16 02/23/23 11:24 16 02/23/23 11:24 16 02/23/23 11:25 80 114/60 97 02/23/23 11:23 95 H 118/61 02/23/23 11:21 36.8 C 82 18 110/58 L 02/23/23 11:20 89 96 02/23/23 11:19 80 18 116/58 L 02/23/23 11:17 89 115/58 L 02/23/23 11:15 83 111/59 L 97 02/23/23 11:13 89 116/66 02/23/23 11:10 79 97 02/23/23 11:11 84 16 119/69 02/23/23 11:07 100 H 127/66 02/23/23 11:05 99 02/23/23 11:05 72 02/23/23 11:05 77 120/69 02/23/23 11:03 78 133/68 02/23/23 11:00 90 99 02/23/23 10:55 100 H 98 02/23/23 10:41 74 124/73 02/23/23 10:26 75 124/69 02/23/23 10:11 86 119/63 02/23/23 09:57 85 120/66 02/23/23 09:41 90 120/62 02/23/23 09:26 83 111/60 02/23/23 07:51 104 H 132/60 02/23/23 08:09 36.7 C 20 132/60 Coding Level of Care Code None Diagnoses Encounter for induction of labor Z34.90
[2023-02-23] MEDS ORDERED: NURSING L&D Epidural Breakthrough Pain Update ONE (15:06)
--- NOTE | 2023-02-23 15:14 | Labor Progress Brief Note ---
Date of Service February 23, 2023 Subjective comfortable Assessment & Plan (1) Encounter for induction of labor: Plan continue current management. fetus overall reassuring. anticipate . Admission and Anticipated Discharge Date Admission Date: February 23, 2023 Physical Exam Physical Exam: cx--7/100/0, some swelling of cervical lip toco--q2-3min, pit at 5, turned off for a bit with an episode of hyperstim efm--115 with mod variability, accels present, decels with hyperstim that resolved with pit off and change now very reassuring. Results & Data Vital Signs (Past 12 Hours) Vital Signs Temp Pulse Resp BP Pulse Ox 02/23/23 15:10 87 100 02/23/23 15:05 93 H 100 02/23/23 15:04 83 121/77 02/23/23 15:00 82 100 02/23/23 14:55 87 100 02/23/23 14:50 88 100 02/23/23 14:49 97 H 106/58 L 02/23/23 14:47 91 H 93 02/23/23 14:45 88 100 02/23/23 14:40 86 100 02/23/23 14:35 81 123/59 L 100 02/23/23 14:30 83 16 100 02/23/23 14:25 79 100 02/23/23 14:20 81 100 02/23/23 14:19 79 109/59 L 02/23/23 14:15 81 100 02/23/23 14:10 77 100 02/23/23 14:05 83 100 02/23/23 14:04 74 107/59 L 02/23/23 14:00 76 16 100 02/23/23 13:55 80 100 02/23/23 13:50 100 02/23/23 13:50 85 02/23/23 13:50 81 109/58 L 02/23/23 13:45 74 100 02/23/23 13:40 73 97 02/23/23 13:35 77 98 02/23/23 13:34 72 106/59 L 02/23/23 13:30 76 16 98 02/23/23 13:25 77 99 02/23/23 13:20 81 97 02/23/23 13:21 92 H 89 L 02/23/23 13:19 73 100/52 L 02/23/23 13:15 36.8 C 73 99 02/23/23 13:10 80 100 02/23/23 13:05 100 02/23/23 13:05 72 02/23/23 13:05 78 100/55 L 02/23/23 13:00 85 16 100 02/23/23 12:59 78 142/69 H 02/23/23 12:55 82 100 02/23/23 12:50 97 02/23/23 12:50 69 02/23/23 12:50 66 108/55 L 02/23/23 12:45 67 96 02/23/23 12:40 81 97 02/23/23 12:35 75 103/57 L 96 02/23/23 12:30 86 18 100 02/23/23 12:25 80 98 02/23/23 12:20 81 118/62 97 02/23/23 12:15 88 97 02/23/23 12:14 95 H 92 02/23/23 12:10 87 97 02/23/23 12:08 84 93 02/23/23 12:05 82 97 02/23/23 12:06 80 118/60 02/23/23 12:00 16 02/23/23 12:00 73 16 95 02/23/23 11:55 75 96 02/23/23 11:50 75 106/57 L 97 02/23/23 11:45 82 96 02/23/23 11:40 82 99 02/23/23 11:35 86 97 02/23/23 11:30 76 18 97 02/23/23 11:27 76 126/67 02/23/23 11:14 16 02/23/23 11:14 16 02/23/23 11:24 16 02/23/23 11:24 16 02/23/23 11:25 80 114/60 97 02/23/23 11:23 95 H 118/61 02/23/23 11:21 36.8 C 82 18 110/58 L 02/23/23 11:20 89 96 02/23/23 11:19 80 18 116/58 L 02/23/23 11:17 89 115/58 L 02/23/23 11:15 83 111/59 L 97 02/23/23 11:13 89 116/66 02/23/23 11:10 79 97 02/23/23 11:11 84 16 119/69 02/23/23 11:07 100 H 127/66 02/23/23 11:05 99 02/23/23 11:05 72 02/23/23 11:05 77 120/69 02/23/23 11:03 78 133/68 02/23/23 11:00 90 99 02/23/23 10:55 100 H 98 02/23/23 10:41 74 124/73 02/23/23 10:26 75 124/69 02/23/23 10:11 86 119/63 02/23/23 09:57 85 120/66 02/23/23 09:41 90 120/62 02/23/23 09:26 83 111/60 02/23/23 07:51 104 H 132/60 02/23/23 08:09 36.7 C 20 132/60 Coding Level of Care Code None Diagnoses Encounter for induction of labor Z34.90
[2023-02-23] MEDS: fentaNYL 2MCG/ML ROPIVACAINE 1.25MG/ML 100 ML BAG EPI PRN ×2 (16:47→21:34)
--- NOTE | 2023-02-23 17:31 | Labor Progress Brief Note ---
Date of Service February 23, 2023 Subjective comfortable Assessment & Plan (1) Encounter for induction of labor: Plan making progress, fetus overall reassuring. anticipate . Admission and Anticipated Discharge Date Admission Date: February 23, 2023 Physical Exam Physical Exam: cx--9/100/0 efm--120s with mod variabiltiy, accels present, occasional variable/early toco--q2-3min, pit at 11 Results & Data Vital Signs (Past 12 Hours) Vital Signs Temp Pulse Resp BP Pulse Ox 02/23/23 17:25 100 H 100 02/23/23 17:20 88 100 02/23/23 17:19 85 118/70 02/23/23 17:15 90 100 02/23/23 17:10 100 02/23/23 17:10 93 H 02/23/23 17:10 96 H 94 02/23/23 17:05 92 H 100 02/23/23 17:03 92 H 123/71 02/23/23 17:00 37.1 C 86 18 100 02/23/23 16:55 91 H 100 02/23/23 16:50 89 100 02/23/23 16:49 100 H 111/66 02/23/23 16:45 87 100 02/23/23 16:40 111 H 99 02/23/23 16:35 103 H 98 02/23/23 16:33 97 H 121/68 02/23/23 16:30 91 H 100 02/23/23 16:25 89 100 02/23/23 16:20 100 H 100 02/23/23 16:18 92 H 117/63 02/23/23 16:15 85 98 02/23/23 16:10 86 99 02/23/23 16:05 87 100 02/23/23 16:04 85 117/63 02/23/23 16:00 86 16 100 02/23/23 15:55 86 100 02/23/23 15:50 89 100 02/23/23 15:49 83 118/79 02/23/23 15:45 82 100 02/23/23 15:40 97 H 100 02/23/23 15:35 86 100 02/23/23 15:34 94 H 133/72 02/23/23 15:30 36.8 C 93 H 18 100 02/23/23 15:25 91 H 100 02/23/23 15:20 76 107/55 L 100 02/23/23 15:15 90 100 02/23/23 15:10 87 100 02/23/23 15:05 93 H 100 02/23/23 15:04 83 121/77 02/23/23 15:00 82 16 100 02/23/23 14:55 87 100 02/23/23 14:50 88 100 02/23/23 14:49 97 H 106/58 L 02/23/23 14:47 91 H 93 02/23/23 14:45 88 100 02/23/23 14:40 86 100 02/23/23 14:35 81 123/59 L 100 02/23/23 14:30 83 16 100 02/23/23 14:25 79 100 02/23/23 14:20 81 100 02/23/23 14:19 79 109/59 L 02/23/23 14:15 81 100 02/23/23 14:10 77 100 02/23/23 14:05 83 100 02/23/23 14:04 74 107/59 L 02/23/23 14:00 76 16 100 02/23/23 13:55 80 100 02/23/23 13:50 100 02/23/23 13:50 85 02/23/23 13:50 81 109/58 L 02/23/23 13:45 74 100 02/23/23 13:40 73 97 02/23/23 13:35 77 98 02/23/23 13:34 72 106/59 L 02/23/23 13:30 76 16 98 02/23/23 13:25 77 99 02/23/23 13:20 81 97 02/23/23 13:21 92 H 89 L 02/23/23 13:19 73 100/52 L 02/23/23 13:15 36.8 C 73 99 02/23/23 13:10 80 100 02/23/23 13:05 100 02/23/23 13:05 72 02/23/23 13:05 78 100/55 L 02/23/23 13:00 85 16 100 02/23/23 12:59 78 142/69 H 02/23/23 12:55 82 100 02/23/23 12:50 97 02/23/23 12:50 69 02/23/23 12:50 66 108/55 L 02/23/23 12:45 67 96 02/23/23 12:40 81 97 02/23/23 12:35 75 103/57 L 96 02/23/23 12:30 86 18 100 02/23/23 12:25 80 98 02/23/23 12:20 81 118/62 97 02/23/23 12:15 88 97 02/23/23 12:14 95 H 92 02/23/23 12:10 87 97 02/23/23 12:08 84 93 02/23/23 12:05 82 97 02/23/23 12:06 80 118/60 02/23/23 12:00 16 02/23/23 12:00 73 16 95 02/23/23 11:55 75 96 02/23/23 11:50 75 106/57 L 97 02/23/23 11:45 82 96 02/23/23 11:40 82 99 02/23/23 11:35 86 97 02/23/23 11:30 76 18 97 02/23/23 11:27 76 126/67 02/23/23 11:14 16 02/23/23 11:14 16 02/23/23 11:24 16 02/23/23 11:24 16 02/23/23 11:25 80 114/60 97 02/23/23 11:23 95 H 118/61 02/23/23 11:21 36.8 C 82 18 110/58 L 02/23/23 11:20 89 96 02/23/23 11:19 80 18 116/58 L 02/23/23 11:17 89 115/58 L 02/23/23 11:15 83 111/59 L 97 02/23/23 11:13 89 116/66 02/23/23 11:10 79 97 02/23/23 11:11 84 16 119/69 02/23/23 11:07 100 H 127/66 02/23/23 11:05 99 02/23/23 11:05 72 02/23/23 11:05 77 120/69 02/23/23 11:03 78 133/68 02/23/23 11:00 90 99 02/23/23 10:55 100 H 98 02/23/23 10:41 74 124/73 02/23/23 10:26 75 124/69 02/23/23 10:11 86 119/63 02/23/23 09:57 85 120/66 02/23/23 09:41 90 120/62 02/23/23 09:26 83 111/60 02/23/23 07:51 104 H 132/60 02/23/23 08:09 36.7 C 20 132/60 Coding Level of Care Code None Diagnoses Encounter for induction of labor Z34.90
--- NOTE | 2023-02-23 20:11 | Labor Progress Brief Note ---
Date of Service February 23, 2023 Subjective starting to push Assessment & Plan (1) Encounter for induction of labor: Plan Beginning active second stage. Fetus overall reassuring. Admission and Anticipated Discharge Date Admission Date: February 23, 2023 Physical Exam Physical Exam: cx--c/c/+1-2 per nursing toco--q2-3min, pit at 11 efm--130s wtih mod variability, small accels, variables with pushing Results & Data Vital Signs (Past 12 Hours) Vital Signs Temp Pulse Resp BP Pulse Ox 02/23/23 20:05 98 02/23/23 20:05 115 H 02/23/23 20:05 116 H 92 02/23/23 20:04 106 H 121/61 02/23/23 20:00 110 H 100 02/23/23 19:55 114 H 99 02/23/23 19:53 114 H 90 02/23/23 19:50 108 H 99 02/23/23 19:45 109 H 100 02/23/23 19:40 102 H 98 02/23/23 19:35 110 H 100 02/23/23 19:34 90 02/23/23 19:34 115 H 02/23/23 19:34 114 H 140/64 02/23/23 19:30 103 H 18 100 02/23/23 19:28 110 H 90 02/23/23 19:25 110 H 98 02/23/23 19:20 104 H 100 02/23/23 19:18 107 H 120/56 L 02/23/23 19:15 114 H 98 02/23/23 19:10 106 H 99 02/23/23 19:08 102 H 89 L 02/23/23 19:05 37.8 C H 104 H 99 02/23/23 19:04 110 H 119/56 L 02/23/23 19:00 120 H 99 02/23/23 18:55 106 H 99 02/23/23 18:50 108 H 99 02/23/23 18:49 109 H 127/58 L 02/23/23 18:48 114 H 91 02/23/23 18:45 110 H 100 02/23/23 18:40 102 H 99 02/23/23 18:35 101 H 123/64 98 02/23/23 18:30 100 H 16 99 02/23/23 18:25 95 H 99 02/23/23 18:20 99 H 100 02/23/23 18:18 95 H 118/60 02/23/23 18:17 100 H 91 02/23/23 18:15 95 H 100 02/23/23 18:10 96 H 100 02/23/23 18:09 86 126/68 02/23/23 18:05 100 02/23/23 18:05 92 H 02/23/23 18:05 92 H 117/64 02/23/23 18:00 94 H 16 100 02/23/23 17:55 90 100 02/23/23 17:50 94 H 100 02/23/23 17:49 93 H 118/65 02/23/23 17:45 93 H 99 02/23/23 17:40 86 100 02/23/23 17:35 91 H 100 02/23/23 17:33 91 H 122/79 02/23/23 17:30 88 16 100 02/23/23 17:25 100 H 100 02/23/23 17:20 88 100 02/23/23 17:19 85 118/70 02/23/23 17:15 90 100 02/23/23 17:10 100 02/23/23 17:10 93 H 02/23/23 17:10 96 H 94 02/23/23 17:05 92 H 100 02/23/23 17:03 92 H 123/71 02/23/23 17:00 37.1 C 86 18 100 02/23/23 16:55 91 H 100 02/23/23 16:50 89 100 02/23/23 16:49 100 H 111/66 02/23/23 16:45 87 100 02/23/23 16:40 111 H 99 02/23/23 16:35 103 H 98 02/23/23 16:33 97 H 121/68 02/23/23 16:30 91 H 18 100 02/23/23 16:25 89 100 02/23/23 16:20 100 H 100 02/23/23 16:18 92 H 117/63 02/23/23 16:15 85 98 02/23/23 16:10 86 99 02/23/23 16:05 87 100 02/23/23 16:04 85 117/63 02/23/23 16:00 86 16 100 02/23/23 15:55 86 100 02/23/23 15:50 89 100 02/23/23 15:49 83 118/79 02/23/23 15:45 82 100 02/23/23 15:40 97 H 100 02/23/23 15:35 86 100 02/23/23 15:34 94 H 133/72 02/23/23 15:30 36.8 C 93 H 18 100 02/23/23 15:25 91 H 100 02/23/23 15:20 76 107/55 L 100 02/23/23 15:15 90 100 02/23/23 15:10 87 100 02/23/23 15:05 93 H 100 02/23/23 15:04 83 121/77 02/23/23 15:00 82 16 100 02/23/23 14:55 87 100 02/23/23 14:50 88 100 02/23/23 14:49 97 H 106/58 L 02/23/23 14:47 91 H 93 02/23/23 14:45 88 100 02/23/23 14:40 86 100 02/23/23 14:35 81 123/59 L 100 02/23/23 14:30 83 16 100 02/23/23 14:25 79 100 02/23/23 14:20 81 100 02/23/23 14:19 79 109/59 L 02/23/23 14:15 81 100 02/23/23 14:10 77 100 02/23/23 14:05 83 100 02/23/23 14:04 74 107/59 L 02/23/23 14:00 76 16 100 02/23/23 13:55 80 100 02/23/23 13:50 100 02/23/23 13:50 85 02/23/23 13:50 81 109/58 L 02/23/23 13:45 74 100 02/23/23 13:40 73 97 02/23/23 13:35 77 98 02/23/23 13:34 72 106/59 L 02/23/23 13:30 76 16 98 02/23/23 13:25 77 99 02/23/23 13:20 81 97 02/23/23 13:21 92 H 89 L 02/23/23 13:19 73 100/52 L 02/23/23 13:15 36.8 C 73 99 02/23/23 13:10 80 100 02/23/23 13:05 100 02/23/23 13:05 72 02/23/23 13:05 78 100/55 L 02/23/23 13:00 85 16 100 02/23/23 12:59 78 142/69 H 02/23/23 12:55 82 100 02/23/23 12:50 97 02/23/23 12:50 69 02/23/23 12:50 66 108/55 L 02/23/23 12:45 67 96 02/23/23 12:40 81 97 02/23/23 12:35 75 103/57 L 96 02/23/23 12:30 86 18 100 02/23/23 12:25 80 98 02/23/23 12:20 81 118/62 97 02/23/23 12:15 88 97 02/23/23 12:14 95 H 92 02/23/23 12:10 87 97 02/23/23 12:08 84 93 02/23/23 12:05 82 97 02/23/23 12:06 80 118/60 02/23/23 12:00 16 02/23/23 12:00 73 16 95 02/23/23 11:55 75 96 02/23/23 11:50 75 106/57 L 97 02/23/23 11:45 82 96 02/23/23 11:40 82 99 02/23/23 11:35 86 97 02/23/23 11:30 76 18 97 02/23/23 11:27 76 126/67 02/23/23 11:14 16 02/23/23 11:14 16 02/23/23 11:24 16 02/23/23 11:24 16 02/23/23 11:25 80 114/60 97 02/23/23 11:23 95 H 118/61 02/23/23 11:21 36.8 C 82 18 110/58 L 02/23/23 11:20 89 96 02/23/23 11:19 80 18 116/58 L 02/23/23 11:17 89 115/58 L 02/23/23 11:15 83 111/59 L 97 02/23/23 11:13 89 116/66 02/23/23 11:10 79 97 02/23/23 11:11 84 16 119/69 02/23/23 11:07 100 H 127/66 02/23/23 11:05 99 02/23/23 11:05 72 02/23/23 11:05 77 120/69 02/23/23 11:03 78 133/68 02/23/23 11:00 90 99 02/23/23 10:55 100 H 98 02/23/23 10:41 74 124/73 02/23/23 10:26 75 124/69 02/23/23 10:11 86 119/63 02/23/23 09:57 85 120/66 02/23/23 09:41 90 120/62 02/23/23 09:26 83 111/60 Coding Level of Care Code None Diagnoses Encounter for induction of labor Z34.90
[2023-02-23] MEDS ORDERED: GENTAMICIN CONSULT ACTIVE PRN (21:15)
--- NOTE | 2023-02-23 21:20 | Labor Progress Brief Note ---
Date of Service February 23, 2023 Subjective Patient pushing with good effort, but getting tired and painful Assessment & Plan (1) Encounter for induction of labor: Plan good effort but narrow pelvis and she is starting to lose her effort. Not low enough for assistance. Now has a fever, pcn all, so will do dave and courtney. Discussed options of trying to get more comfortable with redose of epidural or proceeding with now. After discussion, agreeable to redose with a break and see if can get comfortable to try pushing again. Admission and Anticipated Discharge Date Admission Date: February 23, 2023 Physical Exam Physical Exam: c/c/+2, lots of caput toco--q2-3min efm--150s wtih mod variability, variables with pushing Results & Data Vital Signs (Past 12 Hours) Vital Signs Temp Pulse Resp BP Pulse Ox 02/23/23 21:15 114 H 81 L 02/23/23 21:14 114 H 87 L 02/23/23 21:10 113 H 94 02/23/23 21:05 119 H 96 02/23/23 21:02 111 H 138/70 02/23/23 21:01 38.9 C H 02/23/23 21:00 108 H 95 02/23/23 20:55 95 02/23/23 20:55 117 H 02/23/23 20:55 115 H 87 L 02/23/23 20:50 113 H 96 02/23/23 20:45 113 H 94 02/23/23 20:43 113 H 131/72 02/23/23 20:40 110 H 95 02/23/23 20:41 113 H 83 L 02/23/23 20:35 117 H 97 02/23/23 20:34 111 H 83 L 02/23/23 20:30 107 H 20 91 02/23/23 20:28 112 H 81 L 02/23/23 20:25 114 H 98 02/23/23 20:24 111 H 132/68 02/23/23 20:23 106 H 90 02/23/23 20:20 109 H 98 02/23/23 20:17 95 H 92 02/23/23 20:15 114 H 98 02/23/23 20:10 107 H 89 L 02/23/23 20:05 98 02/23/23 20:05 115 H 02/23/23 20:05 116 H 92 02/23/23 20:04 106 H 121/61 02/23/23 20:00 110 H 20 100 02/23/23 19:55 114 H 99 02/23/23 19:53 114 H 90 02/23/23 19:50 108 H 99 02/23/23 19:45 109 H 100 02/23/23 19:40 102 H 98 02/23/23 19:35 110 H 100 02/23/23 19:34 90 02/23/23 19:34 115 H 02/23/23 19:34 114 H 140/64 02/23/23 19:30 103 H 18 100 02/23/23 19:28 110 H 90 02/23/23 19:25 110 H 98 02/23/23 19:20 104 H 100 02/23/23 19:18 107 H 120/56 L 02/23/23 19:15 114 H 98 02/23/23 19:10 106 H 99 02/23/23 19:08 102 H 89 L 02/23/23 19:05 37.8 C H 104 H 99 02/23/23 19:04 110 H 119/56 L 02/23/23 19:00 120 H 99 02/23/23 18:55 106 H 99 02/23/23 18:50 108 H 99 02/23/23 18:49 109 H 127/58 L 02/23/23 18:48 114 H 91 02/23/23 18:45 110 H 100 02/23/23 18:40 102 H 99 02/23/23 18:35 101 H 123/64 98 02/23/23 18:30 100 H 16 99 02/23/23 18:25 95 H 99 02/23/23 18:20 99 H 100 02/23/23 18:18 95 H 118/60 02/23/23 18:17 100 H 91 02/23/23 18:15 95 H 100 02/23/23 18:10 96 H 100 02/23/23 18:09 86 126/68 02/23/23 18:05 100 02/23/23 18:05 92 H 02/23/23 18:05 92 H 117/64 02/23/23 18:00 94 H 16 100 02/23/23 17:55 90 100 02/23/23 17:50 94 H 100 02/23/23 17:49 93 H 118/65 02/23/23 17:45 93 H 99 02/23/23 17:40 86 100 02/23/23 17:35 91 H 100 02/23/23 17:33 91 H 122/79 02/23/23 17:30 88 16 100 02/23/23 17:25 100 H 100 02/23/23 17:20 88 100 02/23/23 17:19 85 118/70 02/23/23 17:15 90 100 02/23/23 17:10 100 02/23/23 17:10 93 H 02/23/23 17:10 96 H 94 02/23/23 17:05 92 H 100 02/23/23 17:03 92 H 123/71 02/23/23 17:00 37.1 C 86 18 100 02/23/23 16:55 91 H 100 02/23/23 16:50 89 100 02/23/23 16:49 100 H 111/66 02/23/23 16:45 87 100 02/23/23 16:40 111 H 99 02/23/23 16:35 103 H 98 02/23/23 16:33 97 H 121/68 02/23/23 16:30 91 H 18 100 02/23/23 16:25 89 100 02/23/23 16:20 100 H 100 02/23/23 16:18 92 H 117/63 02/23/23 16:15 85 98 02/23/23 16:10 86 99 02/23/23 16:05 87 100 02/23/23 16:04 85 117/63 02/23/23 16:00 86 16 100 02/23/23 15:55 86 100 02/23/23 15:50 89 100 02/23/23 15:49 83 118/79 02/23/23 15:45 82 100 02/23/23 15:40 97 H 100 02/23/23 15:35 86 100 02/23/23 15:34 94 H 133/72 02/23/23 15:30 36.8 C 93 H 18 100 02/23/23 15:25 91 H 100 02/23/23 15:20 76 107/55 L 100 02/23/23 15:15 90 100 02/23/23 15:10 87 100 02/23/23 15:05 93 H 100 02/23/23 15:04 83 121/77 02/23/23 15:00 82 16 100 02/23/23 14:55 87 100 02/23/23 14:50 88 100 02/23/23 14:49 97 H 106/58 L 02/23/23 14:47 91 H 93 02/23/23 14:45 88 100 02/23/23 14:40 86 100 02/23/23 14:35 81 123/59 L 100 02/23/23 14:30 83 16 100 02/23/23 14:25 79 100 02/23/23 14:20 81 100 02/23/23 14:19 79 109/59 L 02/23/23 14:15 81 100 02/23/23 14:10 77 100 02/23/23 14:05 83 100 02/23/23 14:04 74 107/59 L 02/23/23 14:00 76 16 100 02/23/23 13:55 80 100 02/23/23 13:50 100 02/23/23 13:50 85 02/23/23 13:50 81 109/58 L 02/23/23 13:45 74 100 02/23/23 13:40 73 97 02/23/23 13:35 77 98 02/23/23 13:34 72 106/59 L 02/23/23 13:30 76 16 98 02/23/23 13:25 77 99 02/23/23 13:20 81 97 02/23/23 13:21 92 H 89 L 02/23/23 13:19 73 100/52 L 02/23/23 13:15 36.8 C 73 99 02/23/23 13:10 80 100 02/23/23 13:05 100 02/23/23 13:05 72 02/23/23 13:05 78 100/55 L 02/23/23 13:00 85 16 100 02/23/23 12:59 78 142/69 H 02/23/23 12:55 82 100 02/23/23 12:50 97 02/23/23 12:50 69 02/23/23 12:50 66 108/55 L 02/23/23 12:45 67 96 02/23/23 12:40 81 97 02/23/23 12:35 75 103/57 L 96 02/23/23 12:30 86 18 100 02/23/23 12:25 80 98 02/23/23 12:20 81 118/62 97 02/23/23 12:15 88 97 02/23/23 12:14 95 H 92 02/23/23 12:10 87 97 02/23/23 12:08 84 93 02/23/23 12:05 82 97 02/23/23 12:06 80 118/60 02/23/23 12:00 16 02/23/23 12:00 73 16 95 02/23/23 11:55 75 96 02/23/23 11:50 75 106/57 L 97 02/23/23 11:45 82 96 02/23/23 11:40 82 99 02/23/23 11:35 86 97 02/23/23 11:30 76 18 97 02/23/23 11:27 76 126/67 02/23/23 11:14 16 02/23/23 11:14 16 02/23/23 11:24 16 02/23/23 11:24 16 02/23/23 11:25 80 114/60 97 02/23/23 11:23 95 H 118/61 02/23/23 11:21 36.8 C 82 18 110/58 L 02/23/23 11:20 89 96 02/23/23 11:19 80 18 116/58 L 02/23/23 11:17 89 115/58 L 02/23/23 11:15 83 111/59 L 97 02/23/23 11:13 89 116/66 02/23/23 11:10 79 97 02/23/23 11:11 84 16 119/69 02/23/23 11:07 100 H 127/66 02/23/23 11:05 99 02/23/23 11:05 72 02/23/23 11:05 77 120/69 02/23/23 11:03 78 133/68 02/23/23 11:00 90 99 02/23/23 10:55 100 H 98 02/23/23 10:41 74 124/73 02/23/23 10:26 75 124/69 02/23/23 10:11 86 119/63 02/23/23 09:57 85 120/66 02/23/23 09:41 90 120/62 02/23/23 09:26 83 111/60 Coding Level of Care Code None Diagnoses Encounter for induction of labor Z34.90
[2023-02-23] MEDS ORDERED: AZITHROMYCIN 250 MG in DEXTROSE 5% 250 ML IV ONE (21:30)
[2023-02-23] MEDS ORDERED: DEXTROSE 5% IV SCH (21:30)
[2023-02-23] MEDS ORDERED: GENTAMICIN SULFATE IV SCH (21:30)
[2023-02-23] MEDS ORDERED: OXYTOCIN 10 UNITS/ML 10ML VIAL ONE (21:56)
--- NOTE | 2023-02-23 21:57 | Communication Note ---
Date of Service: February 23, 2023 Patient has been redosed and she is just to painful to adequately push. She tried with one contraction and cannot get past it. She requests . r /b/se of surgery discussed with the patient including anesthesia with possible need to go to sleep., bleeding that might require a transfusion, infection, poor wound healing, damage to surrounding structures with need for further surgery, injury to the baby. Consent reviewed and signed.
[2023-02-23] MEDS ORDERED: ONDANSETRON INJ 2 MG/ML 2 ML VIAL ONE (21:59)
[2023-02-23] MEDS ORDERED: PHENYLEPHRINE 100MCG/ML 5ML SYR ONE (21:59)
[2023-02-23] MEDS ORDERED: MoRPHine SULFATE PF 1 MG/ML 10 ML AMP/VIAL ONE (22:00)
[2023-02-23] MEDS ORDERED: CITRIC ACID/SODIUM CITRATE 15 ML UDC ONE (22:09)
[2023-02-23] MEDS ORDERED: MIDAZOLAM HCL 1 MG/ML 2ML VIAL ONE (22:37)
[2023-02-23] MEDS ORDERED: KETAMINE 50 MG/5 ML SYRINGE ONE (22:39)
[2023-02-23] MEDS ORDERED: NALOXONE HCL 0.08 MG in SYRINGE 1.8 ML IV PRN (22:45)
[2023-02-23] MEDS ORDERED: NO NARCOTICS OR SEDATIVES SCH (22:45)
[2023-02-23] MEDS ORDERED: PROMETHAZINE HCL 6.25 MG in SODIUM CHLORIDE 0.9% 50 ML IV PRN (22:45)
[2023-02-23] MEDS ORDERED: LACTATED RINGER'S 500 ML IV PRN (22:45)
[2023-02-23] MEDS ORDERED: DC INTRASPINAL MORPHINE SCH (22:45)
[2023-02-23] MEDS ORDERED: HYDROmorphone INJ 0.5 MG/0.5 ML SYR IV PRN (22:45)
[2023-02-23] MEDS ORDERED: SODIUM CHLORIDE 0.9% 1000ML 1,000 ML IV SCH (22:45)
[2023-02-23] MEDS ORDERED: MoRPHine SULFATE PF 1 MG/ML 10 ML AMP/VIAL EPI ONE (22:45)
--- NOTE | 2023-02-23 23:15 | Anesthesiology Progress Note ---
Date of Service February 23, 2023 Anesthesia Post Procedure Vital Signs Vital Signs: Temp Pulse Resp BP Pulse Ox 02/23/23 23:12 109 H 97 02/23/23 23:10 114 H 91 02/23/23 23:08 115 H 113/54 L 02/23/23 22:08 110 H 122/59 L 02/23/23 22:06 95 02/23/23 22:06 118 H 02/23/23 22:06 121 H 116/55 L 02/23/23 22:04 116 H 124/58 L 02/23/23 22:01 124 H 91 02/23/23 22:00 121 H 20 116/73 02/23/23 21:58 125 H 116/57 L 02/23/23 21:56 117 H 128/73 02/23/23 21:55 119 H 92 02/23/23 21:50 118 H 94 02/23/23 21:48 120 H 128/72 02/23/23 21:46 112 H 127/65 02/23/23 21:45 115 H 95 02/23/23 21:44 111 H 131/66 02/23/23 21:42 114 H 130/62 02/23/23 21:40 114 H 122/55 L 93 02/23/23 21:38 125 H 130/61 82 L 02/23/23 21:35 112 H 91 02/23/23 21:32 120 H 88 L 02/23/23 21:30 125 H 18 92 02/23/23 21:25 94 02/23/23 21:25 102 H 02/23/23 21:26 111 H 82 L 02/23/23 21:25 108 H 118/75 02/23/23 21:20 112 H 94 02/23/23 21:15 114 H 81 L 02/23/23 21:14 114 H 87 L 02/23/23 21:10 113 H 94 02/23/23 21:05 119 H 96 02/23/23 21:02 111 H 138/70 02/23/23 21:01 38.9 C H 02/23/23 21:00 108 H 20 95 02/23/23 20:55 95 02/23/23 20:55 117 H 02/23/23 20:55 115 H 87 L 02/23/23 20:50 113 H 96 02/23/23 20:45 113 H 94 02/23/23 20:43 113 H 131/72 02/23/23 20:40 110 H 95 02/23/23 20:41 113 H 83 L 02/23/23 20:35 117 H 97 02/23/23 20:34 111 H 83 L 02/23/23 20:30 107 H 20 91 02/23/23 20:28 112 H 81 L 02/23/23 20:25 114 H 98 02/23/23 20:24 111 H 132/68 02/23/23 20:23 106 H 90 02/23/23 20:20 109 H 98 02/23/23 20:17 95 H 92 02/23/23 20:15 114 H 98 02/23/23 20:10 107 H 89 L 02/23/23 20:05 98 02/23/23 20:05 115 H 02/23/23 20:05 116 H 92 02/23/23 20:04 106 H 121/61 02/23/23 20:00 110 H 20 100 02/23/23 19:55 114 H 99 02/23/23 19:53 114 H 90 02/23/23 19:50 108 H 99 02/23/23 19:45 109 H 100 02/23/23 19:40 102 H 98 02/23/23 19:35 110 H 100 02/23/23 19:34 90 02/23/23 19:34 115 H 02/23/23 19:34 114 H 140/64 02/23/23 19:30 103 H 18 100 02/23/23 19:28 110 H 90 02/23/23 19:25 110 H 98 02/23/23 19:20 104 H 100 02/23/23 19:18 107 H 120/56 L 02/23/23 19:15 114 H 98 02/23/23 19:10 106 H 99 02/23/23 19:08 102 H 89 L 02/23/23 19:05 37.8 C H 104 H 99 02/23/23 19:04 110 H 119/56 L 02/23/23 19:00 120 H 99 02/23/23 18:55 106 H 99 02/23/23 18:50 108 H 99 02/23/23 18:49 109 H 127/58 L 02/23/23 18:48 114 H 91 02/23/23 18:45 110 H 100 02/23/23 18:40 102 H 99 02/23/23 18:35 101 H 123/64 98 02/23/23 18:30 100 H 16 99 02/23/23 18:25 95 H 99 02/23/23 18:20 99 H 100 02/23/23 18:18 95 H 118/60 02/23/23 18:17 100 H 91 02/23/23 18:15 95 H 100 02/23/23 18:10 96 H 100 02/23/23 18:09 86 126/68 02/23/23 18:05 100 02/23/23 18:05 92 H 02/23/23 18:05 92 H 117/64 02/23/23 18:00 94 H 16 100 02/23/23 17:55 90 100 02/23/23 17:50 94 H 100 02/23/23 17:49 93 H 118/65 02/23/23 17:45 93 H 99 02/23/23 17:40 86 100 02/23/23 17:35 91 H 100 02/23/23 17:33 91 H 122/79 02/23/23 17:30 88 16 100 02/23/23 17:25 100 H 100 02/23/23 17:20 88 100 02/23/23 17:19 85 118/70 02/23/23 17:15 90 100 02/23/23 17:10 100 02/23/23 17:10 93 H 02/23/23 17:10 96 H 94 02/23/23 17:05 92 H 100 02/23/23 17:03 92 H 123/71 02/23/23 17:00 37.1 C 86 18 100 02/23/23 16:55 91 H 100 02/23/23 16:50 89 100 02/23/23 16:49 100 H 111/66 02/23/23 16:45 87 100 02/23/23 16:40 111 H 99 02/23/23 16:35 103 H 98 02/23/23 16:33 97 H 121/68 02/23/23 16:30 91 H 18 100 02/23/23 16:25 89 100 02/23/23 16:20 100 H 100 02/23/23 16:18 92 H 117/63 02/23/23 16:15 85 98 02/23/23 16:10 86 99 02/23/23 16:05 87 100 02/23/23 16:04 85 117/63 02/23/23 16:00 86 16 100 02/23/23 15:55 86 100 02/23/23 15:50 89 100 02/23/23 15:49 83 118/79 02/23/23 15:45 82 100 02/23/23 15:40 97 H 100 02/23/23 15:35 86 100 02/23/23 15:34 94 H 133/72 02/23/23 15:30 36.8 C 93 H 18 100 02/23/23 15:25 91 H 100 02/23/23 15:20 76 107/55 L 100 02/23/23 15:15 90 100 02/23/23 15:10 87 100 02/23/23 15:05 93 H 100 02/23/23 15:04 83 121/77 02/23/23 15:00 82 16 100 02/23/23 14:55 87 100 02/23/23 14:50 88 100 02/23/23 14:49 97 H 106/58 L 02/23/23 14:47 91 H 93 02/23/23 14:45 88 100 02/23/23 14:40 86 100 02/23/23 14:35 81 123/59 L 100 02/23/23 14:30 83 16 100 02/23/23 14:25 79 100 02/23/23 14:20 81 100 02/23/23 14:19 79 109/59 L 02/23/23 14:15 81 100 02/23/23 14:10 77 100 02/23/23 14:05 83 100 02/23/23 14:04 74 107/59 L 02/23/23 14:00 76 16 100 02/23/23 13:55 80 100 02/23/23 13:50 100 02/23/23 13:50 85 02/23/23 13:50 81 109/58 L 02/23/23 13:45 74 100 02/23/23 13:40 73 97 02/23/23 13:35 77 98 02/23/23 13:34 72 106/59 L 02/23/23 13:30 76 16 98 02/23/23 13:25 77 99 02/23/23 13:20 81 97 02/23/23 13:21 92 H 89 L 02/23/23 13:19 73 100/52 L 02/23/23 13:15 36.8 C 73 99 02/23/23 13:10 80 100 02/23/23 13:05 100 02/23/23 13:05 72 02/23/23 13:05 78 100/55 L 02/23/23 13:00 85 16 100 02/23/23 12:59 78 142/69 H 02/23/23 12:55 82 100 02/23/23 12:50 97 02/23/23 12:50 69 02/23/23 12:50 66 108/55 L 02/23/23 12:45 67 96 02/23/23 12:40 81 97 02/23/23 12:35 75 103/57 L 96 02/23/23 12:30 86 18 100 02/23/23 12:25 80 98 02/23/23 12:20 81 118/62 97 02/23/23 12:15 88 97 02/23/23 12:14 95 H 92 02/23/23 12:10 87 97 02/23/23 12:08 84 93 02/23/23 12:05 82 97 02/23/23 12:06 80 118/60 02/23/23 12:00 16 02/23/23 12:00 73 16 95 02/23/23 11:55 75 96 02/23/23 11:50 75 106/57 L 97 02/23/23 11:45 82 96 02/23/23 11:40 82 99 02/23/23 11:35 86 97 02/23/23 11:30 76 18 97 02/23/23 11:27 76 126/67 02/23/23 11:14 16 02/23/23 11:14 16 02/23/23 11:24 16 02/23/23 11:24 16 02/23/23 11:25 80 114/60 97 02/23/23 11:23 95 H 118/61 02/23/23 11:21 36.8 C 82 18 110/58 L 02/23/23 11:20 89 96 02/23/23 11:19 80 18 116/58 L 02/23/23 11:17 89 115/58 L 02/23/23 11:15 83 111/59 L 97 02/23/23 11:13 89 116/66 02/23/23 11:10 79 97 02/23/23 11:11 84 16 119/69 02/23/23 11:07 100 H 127/66 02/23/23 11:05 99 02/23/23 11:05 72 02/23/23 11:05 77 120/69 02/23/23 11:03 78 133/68 02/23/23 11:00 90 99 02/23/23 10:55 100 H 98 02/23/23 10:41 74 124/73 02/23/23 10:26 75 124/69 02/23/23 10:11 86 119/63 02/23/23 09:57 85 120/66 02/23/23 09:41 90 120/62 02/23/23 09:26 83 111/60 02/23/23 07:51 104 H 132/60 02/23/23 08:09 36.7 C 20 132/60 Pain Intensity Bilateral Abdomen: Pain Intensity: 10 Transfer of Care Handoff Completed per policy Notes Mental Status: alert / awake / arousable and participated in evaluation Patient Amnestic to Procedure: No Nausea / Vomiting: adequately controlled Pain: adequately controlled Airway Patency, RR, SpO2: stable & adequate BP & HR: stable & adequate Hydration State: stable & adequate Neuraxial Anesthesia: was administered and sensory block is resolving Anesthetic Complications: no major complications apparent and Pt Satisfied with anesthetic care
--- NOTE | 2023-02-23 23:15 | Anesthesia Procedure Note ---
Date of Service February 23, 2023 Anesthesia Post Epidural Note Vital Signs Vital Signs: Temp Pulse Resp BP Pulse Ox 38.9 C H 109 H 20 113/54 L 97 02/23/23 21:01 02/23/23 23:12 02/23/23 22:00 02/23/23 23:08 02/23/23 23:12 Pain Intensity Bilateral Abdomen: Pain Intensity: 10 Notes Mental Status: alert / awake / arousable and participated in evaluation Nausea / Vomiting: adequately controlled Pain: adequately controlled Airway Patency, RR, SpO2: stable & adequate BP & HR: stable & adequate Hydration State: stable & adequate Neuraxial Anesthesia: was administered and sensory block is resolving Anesthetic Complications: no major complications apparent and Pt Satisfied with anesthetic care Epidural: Removed without complications and With tip intact
[2023-02-23] MEDS ORDERED: HYDROCORTISONE ACETATE 25 MG SUPP PR PRN (23:17)
[2023-02-23] MEDS ORDERED: BENZOCAINE 20% AER SPR 82.5 GM CAN EXT PRN (23:17)
[2023-02-23] MEDS ORDERED: DIPHTHERIA/TETANUS/PERTUSSIS 0.5mL SYR/VIAL (Age 7+yrs) IM ONE (23:17)
[2023-02-23] MEDS ORDERED: SENNA 8.6 MG TAB PO PRN (23:17)
[2023-02-23] MEDS ORDERED: MAGNESIUM HYDROXIDE SUSP 30 ML UDC PO PRN (23:17)
--- NOTE | 2023-02-23 23:27 | Operative Report ---
PG Post Operative Report Pre & Post Diagnosis Operation Date: 02/23/23 22:00 <No data on this case meets the specified criteria> Pre-op-- at 39 weeks Failure to descend maternal intolerance of pushing post-op--same I identified the patient and participated in the time-out.: Yes Procedure Operation Date: 02/23/23 22:00 <No data on this case meets the specified criteria> Primary low transverse Surgeon Glenna Anne MD, FACOG Rn Heart Maynor Vergara RN Estimated Blood Loss 800 Findings Consistent with Post-Op Diagnosis viable male , leodan, very molded and stuck in pelvis, apgars 6/9 normal appearing uterus/tubes/ovs Fluids 1500cc Specimens cord blood Drains berry Anesthesia Type Labor Epidural Complications none Disposition Accompanied Patient To Recovery: Yes Disposition: L&D Indications Patient is a 27yowf who presented for elective induction . She progressed to c/c/+1-2 station. She pushed for about 1.5 hours and then her pain became intolerable. She was unable to push because of this. When she was pushing well, she was moving the vertex but the caput just increased and descended the vertex not as much. Redosed epidural, but unable to achieve adequate pain control for her to be able to push. After discussion, she desires . Description of Procedure The patient was taken to the operating room where she was identified verbally and by bracelet. She was seated on the operating table where her epidural anes thetic was dosed by anesthesia. She was then placed in the supine position with a leftward tilt. A Berry catheter had been placed sterilely. the patient was prepped and draped in a normal standard fashion. the anesthetic was tested and found to be adequate. A time-out was held, identifying correct patient, procedure, positioning and preoperative antibiotics. There were no concerns. A Pfannenstiel skin incision was made with a knife and taken down to the underlying layer of fascia with the knife and Bovie electrocautery. Bleeding was attended to with the Bovie. The fascia was incised in the midline with the knife and taken out laterally with scissors. The superior edge of the fascial incision was grasped, elevated and the underlying layer of rectus muscle was taken off bluntly and with scissors. In a similar fashion, the inferior edge of the fascial incision was grasped, elevated and the underlying layer of rectus muscle was taken off bluntly and with scissors. The muscles were bluntly in the midline. The peritoneum was entered bluntly. The incision was then stretched. The bladder blade was placed. The vesicouterine peritoneum was identified, entered with scissors and taken out laterally with scissors. The bladder flap was created digitally A hysterotomy incision was scored with a knife and the incision was stretched superiorly and inferiorly with the switching operator's fingers. Clear fluid. The operators hand was placed into the incision and the head was delivered atraumatically. No nuchal cord. The nose and mouth were bulb suctioned. the rest of the was then delivered without difficulty. The nose and mouth were again bulb suctioned. The cord was clamped and cut and the was then handed off to the awaiting gauge machine operator for drying and attention. Cord blood and segment were obtained. The placenta was Manually extracted. The uterus was exteriorized and cleared of all clot and debris with moistened laparotomy sponges. The hysterotomy incision was repaired in two layers, the first in a running locked layer, the second in an imbricating layer. Hemostasis was noted to be good. Posterior cul-de-sac was irrigated and cleared of all clot and debris. The hysterotomy incision was again inspected and one figure of eight suture of 0 Vicryl needed and then the incision was hemostatic. the uterus was reinteriorized. Hysterotomy incision was again inspected and found to be hemostatic. Rectus muscles were reapproximated with several interrupted stitches of 0 Vicryl. The fascia was then reapproximated with 0 Vicryl starting at the edges and meeting in the midline. The subcuticular tissues were copiously irrigated and bleeding was attended to with cautery. The skin was then closed with 4-0 Vicryl in a subcuticular fashion. All sponge, lap and needle counts were correct times 2. The patient tolerated the procedure and well and was taken to the recovery room in stable condition. I attest to the content of the Intraoperative Record and any orders documented therein. Any exceptions are noted below. OB Procedure Charges 81893
[2023-02-23] MEDS ORDERED: LACTATED RINGER'S 1,000 ML IV SCH (23:30)
[2023-02-23 23:39] LABS: Base Excess Cord Venous Blood -10.9 mEq/L (-7.7-1.9); Cord Venous Blood HCO3 17 mmol/L (18.4-26.8); Cord Venous Blood PCO2 43 mmHg (30.4-57.2); Cord Venous Blood PO2 11 mmHg (14.1-43.3); O2 Saturation Cord Venous Bld < 60.0 % (<68)
[2023-02-24] MEDS: KETOROLAC 30 MG/ML VIAL IV PRN ×3 (00:12→16:06)
[2023-02-24] MEDS: OXYTOCIN 20 UNITS in LACTATED RINGER'S 1,000 ML IV SCH ×2 (03:15→12:30)
[2023-02-24] MEDS ORDERED: CITRIC ACID/SODIUM CITRATE 15 ML UDC PO SCH (06:00)
[2023-02-24] MEDS ORDERED: CLINDAMYCIN/D5W 900 MG/50 ML BAG IV SCH (06:00)
--- NOTE | 2023-02-24 06:14 | Obstetrical Progress Note ---
Date of Service February 24, 2023 Assessment & Plan (1) Encounter for induction of labor: (2) Encounter for supervision of in second trimester with history of molar : (3) Hypothyroidism affecting : Plan Nadine is a 27 y/o female who is POD #1 following delivery at 39w3d -Meeting all milestones -Vital signs stable, afebrile since 1am. Elevated WBC to 28k this a.m., hemoglobin from 9.8 (02/23) to 7.9 today -Keep berry in place for now, added 500mL LR bolus. Encourage PO fluid intake -Advance diet after passing gas -Encourage ambulation when able -O+/GBS negative/Rubella immune -Continue routine care Admission and Anticipated Discharge Date Admission Date: February 23, 2023 Supervising Physician Co-Signing Physician Notes Resident Physician Supervision Note: I interviewed and examined the patient. Discussed with Dr. Regalado and agree with findings and plan as documented in the note. Any exceptions or clarifications are listed here: Doing well. Routine care. Desires d/c at 24 hours. Documented By: Glenna Anne MD, FACOG Subjective Nadine is a 27 y/o female who is POD #1 following delivery at 39w3d. She reports feeling tired but comfortable this morning. Some abdominal cramping and soreness at incision site. Berry catheter in place, some blood tinged urine this morning. Patient notes she is trying to increase her fluid intake. Has not eaten yet as she has not passed gas. Denies nausea or vomiting. Has some persistent lochia with some improvement this morning. Plans to formula feed. Review of Systems Constitutional: no fever, no chills and no sweats Respiratory: no cough, no dyspnea and no wheezing Cardiovascular: no chest pain, no palpitations and no calf pain Genitourinary: no dysuria Neurologic: no headache(s) Physical Exam Constitutional: WD/WN, vitals as above no acute distress Respiratory: no respiratory distress Auscultation: lungs clear to auscultation bilaterally; no rales, no rhonchi and no wheezes Cardiovascular: RRR, no murmur, no edema Extremities: no calf tenderness and no edema Negative Kristel's sign bilaterally. Gastrointestinal (Abdomen): Inspection/Auscultation: normal bowel sounds Genitourinary: Uterine fundus firm, palpable below the umbilicus. Surgical incision site covered with bandage. Results & Data Vital Signs (Past 12 Hours) Vital Signs Temp Pulse Pulse Resp BP BP Pulse Ox 02/24/23 04:45 18 96 02/24/23 05:19 18 93 02/24/23 04:45 36.9 C 88 16 114/65 96 02/24/23 03:30 18 95 02/24/23 02:17 16 94 02/24/23 01:30 18 98 02/24/23 01:30 02/24/23 01:30 37.0 C 89 18 97 02/24/23 01:10 37.6 C H 20 02/24/23 00:10 18 02/24/23 00:40 16 02/24/23 00:10 18 02/24/23 00:00 18 02/23/23 23:50 18 02/23/23 23:40 20 02/23/23 23:30 18 02/23/23 23:20 18 02/23/23 23:10 37.0 C 16 02/24/23 01:12 84 92 02/24/23 01:09 90 128/62 02/24/23 01:07 89 94 02/24/23 01:02 87 93 02/24/23 00:58 86 120/58 L 02/24/23 00:57 92 H 93 02/24/23 00:52 87 93 02/24/23 00:48 88 119/57 L 02/24/23 00:47 93 H 93 02/24/23 00:42 90 92 02/24/23 00:38 90 120/59 L 02/24/23 00:37 91 H 94 02/24/23 00:32 91 H 93 02/24/23 00:28 92 H 124/60 02/24/23 00:27 91 H 94 02/24/23 00:22 88 92 02/24/23 00:18 90 127/60 02/24/23 00:17 91 H 95 02/24/23 00:12 95 H 92 02/24/23 00:08 94 H 123/58 L 02/24/23 00:07 92 H 94 02/24/23 00:02 93 H 94 02/23/23 23:58 90 123/57 L 02/23/23 23:57 94 H 93 02/23/23 23:52 94 H 95 02/23/23 23:49 91 H 121/53 L 02/23/23 23:47 94 H 95 02/23/23 23:42 97 H 93 02/23/23 23:39 99 H 129/60 02/23/23 23:37 106 H 94 02/23/23 23:32 101 H 96 02/23/23 23:29 107 H 117/55 L 02/23/23 23:27 107 H 95 02/23/23 23:22 112 H 97 02/23/23 23:18 107 H 118/58 L 02/23/23 23:17 98 H 93 02/23/23 23:16 105 H 94 02/23/23 23:12 109 H 97 02/23/23 23:10 114 H 91 02/23/23 23:08 115 H 113/54 L 02/23/23 22:08 110 H 122/59 L 02/23/23 22:06 95 02/23/23 22:06 118 H 02/23/23 22:06 121 H 116/55 L 02/23/23 22:04 116 H 124/58 L 02/23/23 22:01 124 H 91 02/23/23 22:00 121 H 20 116/73 02/23/23 21:58 125 H 116/57 L 02/23/23 21:56 117 H 128/73 02/23/23 21:55 119 H 92 02/23/23 21:50 118 H 94 02/23/23 21:48 120 H 128/72 02/23/23 21:46 112 H 127/65 02/23/23 21:45 115 H 95 02/23/23 21:44 111 H 131/66 02/23/23 21:42 114 H 130/62 02/23/23 21:40 114 H 122/55 L 93 02/23/23 21:38 125 H 130/61 82 L 02/23/23 21:35 112 H 91 02/23/23 21:32 120 H 88 L 02/23/23 21:30 125 H 18 92 02/23/23 21:25 94 02/23/23 21:25 102 H 02/23/23 21:26 111 H 82 L 02/23/23 21:25 108 H 118/75 02/23/23 21:20 112 H 94 02/23/23 21:15 114 H 81 L 02/23/23 21:14 114 H 87 L 02/23/23 21:10 113 H 94 02/23/23 21:05 119 H 96 02/23/23 21:02 111 H 138/70 02/23/23 21:01 38.9 C H 02/23/23 21:00 108 H 20 95 02/23/23 20:55 95 02/23/23 20:55 117 H 02/23/23 20:55 115 H 87 L 02/23/23 20:50 113 H 96 02/23/23 20:45 113 H 94 02/23/23 20:43 113 H 131/72 02/23/23 20:40 110 H 95 02/23/23 20:41 113 H 83 L 02/23/23 20:35 117 H 97 02/23/23 20:34 111 H 83 L 02/23/23 20:30 107 H 20 91 02/23/23 20:28 112 H 81 L 02/23/23 20:25 114 H 98 02/23/23 20:24 111 H 132/68 02/23/23 20:23 106 H 90 02/23/23 20:20 109 H 98 02/23/23 20:17 95 H 92 02/23/23 20:15 114 H 98 02/23/23 20:10 107 H 89 L 02/23/23 20:05 98 02/23/23 20:05 115 H 02/23/23 20:05 116 H 92 02/23/23 20:04 106 H 121/61 02/23/23 20:00 110 H 20 100 02/23/23 19:55 114 H 99 02/23/23 19:53 114 H 90 02/23/23 19:50 108 H 99 02/23/23 19:45 109 H 100 02/23/23 19:40 102 H 98 02/23/23 19:35 110 H 100 02/23/23 19:34 90 02/23/23 19:34 115 H 02/23/23 19:34 114 H 140/64 02/23/23 19:30 103 H 18 100 02/23/23 19:28 110 H 90 02/23/23 19:25 110 H 98 02/23/23 19:20 104 H 100 02/23/23 19:18 107 H 120/56 L 02/23/23 19:15 114 H 98 02/23/23 19:10 106 H 99 02/23/23 19:08 102 H 89 L 02/23/23 19:05 37.8 C H 104 H 99 02/23/23 19:04 110 H 119/56 L 02/23/23 19:00 120 H 99 02/23/23 18:55 106 H 99 02/23/23 18:50 108 H 99 02/23/23 18:49 109 H 127/58 L 02/23/23 18:48 114 H 91 02/23/23 18:45 110 H 100 02/23/23 18:40 102 H 99 02/23/23 18:35 101 H 123/64 98 02/23/23 18:30 100 H 16 99 02/23/23 18:25 95 H 99 02/23/23 18:20 99 H 100 02/23/23 18:18 95 H 118/60 02/23/23 18:17 100 H 91 02/23/23 18:15 95 H 100 O2 Del Method 02/24/23 04:45 02/24/23 05:19 02/24/23 04:45 Room Air 02/24/23 03:30 02/24/23 02:17 02/24/23 01:30 02/24/23 01:30 Room Air 02/24/23 01:30 Room Air 02/24/23 01:10 02/24/23 00:10 02/24/23 00:40 02/24/23 00:10 02/24/23 00:00 02/23/23 23:50 02/23/23 23:40 02/23/23 23:30 02/23/23 23:20 02/23/23 23:10 02/24/23 01:12 02/24/23 01:09 02/24/23 01:07 02/24/23 01:02 02/24/23 00:58 02/24/23 00:57 02/24/23 00:52 02/24/23 00:48 02/24/23 00:47 02/24/23 00:42 02/24/23 00:38 02/24/23 00:37 02/24/23 00:32 02/24/23 00:28 02/24/23 00:27 02/24/23 00:22 02/24/23 00:18 02/24/23 00:17 02/24/23 00:12 02/24/23 00:08 02/24/23 00:07 02/24/23 00:02 02/23/23 23:58 02/23/23 23:57 02/23/23 23:52 02/23/23 23:49 02/23/23 23:47 02/23/23 23:42 02/23/23 23:39 02/23/23 23:37 02/23/23 23:32 02/23/23 23:29 02/23/23 23:27 02/23/23 23:22 02/23/23 23:18 02/23/23 23:17 02/23/23 23:16 02/23/23 23:12 02/23/23 23:10 02/23/23 23:08 02/23/23 22:08 02/23/23 22:06 02/23/23 22:06 02/23/23 22:06 02/23/23 22:04 02/23/23 22:01 02/23/23 22:00 02/23/23 21:58 02/23/23 21:56 02/23/23 21:55 02/23/23 21:50 02/23/23 21:48 02/23/23 21:46 02/23/23 21:45 02/23/23 21:44 02/23/23 21:42 02/23/23 21:40 02/23/23 21:38 02/23/23 21:35 02/23/23 21:32 02/23/23 21:30 02/23/23 21:25 02/23/23 21:25 02/23/23 21:26 02/23/23 21:25 02/23/23 21:20 02/23/23 21:15 02/23/23 21:14 02/23/23 21:10 02/23/23 21:05 02/23/23 21:02 02/23/23 21:01 02/23/23 21:00 02/23/23 20:55 02/23/23 20:55 02/23/23 20:55 02/23/23 20:50 02/23/23 20:45 02/23/23 20:43 02/23/23 20:40 02/23/23 20:41 02/23/23 20:35 02/23/23 20:34 02/23/23 20:30 02/23/23 20:28 02/23/23 20:25 02/23/23 20:24 02/23/23 20:23 02/23/23 20:20 02/23/23 20:17 02/23/23 20:15 02/23/23 20:10 02/23/23 20:05 02/23/23 20:05 02/23/23 20:05 02/23/23 20:04 02/23/23 20:00 02/23/23 19:55 02/23/23 19:53 02/23/23 19:50 02/23/23 19:45 02/23/23 19:40 02/23/23 19:35 02/23/23 19:34 02/23/23 19:34 02/23/23 19:34 02/23/23 19:30 02/23/23 19:28 02/23/23 19:25 02/23/23 19:20 02/23/23 19:18 02/23/23 19:15 02/23/23 19:10 02/23/23 19:08 02/23/23 19:05 02/23/23 19:04 02/23/23 19:00 02/23/23 18:55 02/23/23 18:50 02/23/23 18:49 02/23/23 18:48 02/23/23 18:45 02/23/23 18:40 02/23/23 18:35 02/23/23 18:30 02/23/23 18:25 02/23/23 18:20 02/23/23 18:18 02/23/23 18:17 02/23/23 18:15 Resident Activity Tracking Resident Involvement: Resident Care Provided Care Provided: OB Delivery
[2023-02-24] MEDS ORDERED: LACTATED RINGER'S 500 ML IV ONE (07:20)
[2023-02-24 07:25] LABS: Hematocrit (blood only) 24.1 % (37.0-47.0); Hemoglobin 7.9 g/dl (12.0-16.0); Mean Corpuscular Hgb Conc 32.8 g/dL (32.0-36.0); Mean Corpuscular Volume 79.3 fL (80.0-100.0); Mean Platelet Volume 11.4 fL (9.4-12.4); Platelet Count 264 K/uL (130-400); RDW Coefficient of Variation 14.2 % (11.5-14.5); RDW Standard Deviation 40.4 fL (36.4-46.3); Red Blood Count 3.04 M/uL (4.20-5.40); White Blood Count 28.53 K/ul (4.8-10.8)
[2023-02-24 07:50] LABS: Basophils # (auto) 0.04 K/uL (0-0.2); Basophils % (auto) 0.1 %; Immature Granulocytes # (auto) 0.26 K/uL (0.01-0.20); Immature Granulocytes % (auto) 0.9 %; Lymphocytes # (auto) 1.61 K/uL (1.2-3.4); Lymphocytes % (auto) 5.6 %; Monocytes # (auto) 2.13 K/uL (0.11-0.59); Monocytes % (auto) 7.5 %; Neutrophils # (auto) 24.49 K/uL (1.40-6.50); Neutrophils % (auto) 85.9 %
[2023-02-24] MEDS: SIMETHICONE 80 MG CHEW PO SCH ×4 (08:47→20:57)
[2023-02-24] MEDS: FERROUS SULFATE 325 MG TAB PO SCH (08:48)
[2023-02-24] MEDS: DOCUSATE SODIUM 100 MG CAP PO SCH ×2 (08:48→20:57)
[2023-02-24] MEDS: PRENATAL VITAMIN 1 TAB PO SCH (08:48)
[2023-02-24] MEDS ORDERED: KETOROLAC 30 MG/ML VIAL IV PRN (16:45)
[2023-02-24] MEDS ORDERED: ONDANSETRON INJ 2 MG/ML 2 ML VIAL IV PRN (16:45)
[2023-02-24] MEDS ORDERED: diphenhydrAMINE 50 MG/ML VIAL IV PRN (16:45)
[2023-02-24] MEDS ORDERED: PROMETHAZINE HCL 25 MG in SODIUM CHLORIDE 0.9% 50 ML IV PRN (16:45)
[2023-02-24] MEDS ORDERED: MEPERIDINE HCL 50 MG/ML CARP IV PRN (16:45)
[2023-02-24] MEDS ORDERED: diphenhydrAMINE Capsule 25 MG CAP PO PRN (16:45)
[2023-02-24] MEDS: IBUPROFEN 600 MG TAB PO PRN (19:41)
[2023-02-24] MEDS ORDERED: bisacodyL 5 MG TABEC PO SCH (20:00)
[2023-02-24] MEDS: oxyCODONE/ACETAMINOPHEN 5mg/325mg TAB PO PRN (22:06)
[2023-02-25] MEDS ORDERED: bisacodyL 10 MG SUPP PR PRN
[2023-02-25] MEDS: IBUPROFEN 600 MG TAB PO PRN ×4 (03:08→20:52)
[2023-02-25] MEDS: oxyCODONE/ACETAMINOPHEN 5mg/325mg TAB PO PRN ×2 (06:06→17:04)
[2023-02-25 06:22] LABS: Hematocrit (blood only) 25.5 % (37.0-47.0); Hemoglobin 8.2 g/dl (12.0-16.0)
--- NOTE | 2023-02-25 07:35 | Obstetrical Progress Note ---
Date of Service February 25, 2023 Assessment & Plan (1) Encounter for induction of labor: Postoperative day #1.5 patient is doing well ambulating she wishes to stay as she is still progressing through the surgical recovery process she has no extremity pain Subjective Ambulation: ambulating normally Voiding: no voiding problems Passing Gas:: Yes Diet Tolerance:: regular diet Constitutional: + as per Subjective / HPI Physical Exam Constitutional WD/WN, vitals as above well developed and well nourished Respiratory normal respiratory effort, lungs clear to auscultation normal respiratory effort Cardiovascular RRR, no murmur, no edema Gastrointestinal (Abdomen) normal bowel sounds, soft, nontender, no hepatosplenomegaly Results & Data Vital Signs (Past 12 Hours) Vital Signs Temp Pulse Resp BP Pulse Ox O2 Del Method 02/25/23 03:10 98.2 F 83 18 114/74 96 Room Air 02/24/23 23:02 98.1 F 93 H 16 116/75 98 Room Air
[2023-02-25] MEDS: SIMETHICONE 80 MG CHEW PO SCH ×5 (08:24→20:56)
[2023-02-25] MEDS: PRENATAL VITAMIN 1 TAB PO SCH (08:24)
[2023-02-25] MEDS: FERROUS SULFATE 325 MG TAB PO SCH (08:25)
[2023-02-25] MEDS: DOCUSATE SODIUM 100 MG CAP PO SCH ×2 (08:25→20:52)
[2023-02-26] MEDS: IBUPROFEN 600 MG TAB PO PRN ×2 (01:25→08:33)
[2023-02-26] MEDS: oxyCODONE/ACETAMINOPHEN 5mg/325mg TAB PO PRN ×2 (01:26→08:32)
--- NOTE | 2023-02-26 07:03 | Obstetrical Progress Note ---
Date of Service <Sonido Cronin - Last Filed: 02/26/23 07:30> February 26, 2023 Assessment & Plan <Sonido Cronin - Last Filed: 02/26/23 07:30> (1) Encounter for induction of labor: (2) Hypothyroidism affecting : Plan - Feels well today. Eating well, voiding well, ambulating well. - Pain well controlled with ibuprofen 600mg Q4H PRN and oxycodone. - Will send in pain medications. - Routine care -- OOB, ambulation, diet progression as tolerated - After discharge will have 6 week follow-up. - Will discharge today Day #:: 3 <Agatha Porras MD, FACOG - Last Filed: 02/26/23 07:39> (1) Encounter for induction of labor: (2) Hypothyroidism affecting : Subjective <Sonido Cronin - Last Filed: 02/26/23 07:30> Ambulation: ambulating normally Voiding: no voiding problems Passing Gas:: Yes Diet Tolerance:: regular diet Lochia:: Small Feeding Type:: bottle feeding Current Pain Level(1-10): 4 Review of Systems Denies fever, chills, sweats Denies shortness of breath, difficulty breathing, chest pain, palpitations, chest pressure. Denies breast pain. Denies dysuria. Denies headache or changes in vision. Physical Exam <Sonido Cronin - Last Filed: 02/26/23 07:30> General: Alert, oriented. No acute distress. Cardiac: Regular rate and rhythm, no murmurs/rubs/gallops. Respiratory: Clear to auscultation bilaterally a/p, no wheezes/rales/rhonchi. No increased work of breathing. Symmetrical chest rise. No respiratory distress. Abdomen: Soft, nontender, nondistended. Bowel sounds present. Uterus: Uterine fundus firm, surgical wound healing well Lower Extremities: No lower extremity edema or swelling. No deep calf pain. Kristel's negative bilaterally. Results & Data <Sonido Cronin - Last Filed: 02/26/23 07:30> Vital Signs (Past 12 Hours) Vital Signs Temp Pulse Resp BP Pulse Ox O2 Del Method 02/25/23 23:11 36.6 C 86 16 115/68 97 Room Air 02/25/23 20:45 36.4 C L 90 18 114/67 97 Room Air <Agatha Porras MD, FACOG - Last Filed: 02/26/23 07:39> Co-Signing Physician Notes Resident Physician Supervision Note: I was present with Dr. choe during the history and exam. I discussed the case with the resident and agree with the findings and plan as documented in the note. Any exceptions or clarifications are listed here: [None] Documented By: Agatha Porras MD, FACOG Resident Activity Tracking <Sonido Cronin DO - Last Filed: 02/26/23 07:30> Resident Involvement: Resident Care Provided Care Provided: OB Delivery
[2023-02-26] MEDS: DOCUSATE SODIUM 100 MG CAP PO SCH (08:31)
[2023-02-26] MEDS: PRENATAL VITAMIN 1 TAB PO SCH (08:31)
[2023-02-26] MEDS: SIMETHICONE 80 MG CHEW PO SCH (08:31)
[2023-02-26] MEDS: FERROUS SULFATE 325 MG TAB PO SCH (08:32)
--- NOTE | 2023-02-27 14:56 | Discharge Summary ---
Date of Service February 27, 2023 Admission HPI Per Admitting Provider Nadine is a 27 y/o female at [place] 39w3d who presents today for elective induction. She has a history of a prior molar which required D&C. She has subclinical hypothyroidism, is taking Synthroid. Last night she had a berry balloon placed- had some minimal bleeding after placement but no additional bleeding or loss of fluid since. + movement and notes some contractions. [employer] History -Last PAP (05/26) NL, no prior abnormal results -Has a history of chlamydia 1 year ago, no other STDs. Gonorrhea/Chlamydia screen negative in this Del. Date GA wks Lbr Lgth wt Sex Type del Anes Place Del Prov ? Comment 03/23/17 Molar D&E 05/31/17 Aborted-Elective Please Do not disclose to spouse OB Labs: Blood Type O Positive 07/24/22 Antibody Screen NEGATIVE 07/24/22 Hemoglobin 11.0 g/dl (12.0-16.0) L 12/05/22 Hematocrit 32.5 % (37.0-47.0) L 12/05/22 Mean Corpuscular Volume 91.0 fL (80.0-100.0) 10/09/22 Platelet Count 251 K/uL (130-400) 10/09/22 Rubella IgG Antibody Immune (Immune) 07/24/22 Rapid Plasma Reagin Nonreactive (Nonreactive) 07/24/22 Hepatitis B Surface Antigen Neg (Neg) 04/10/19 Hepatitis B Surface Antigen. NON-REACTIVE (NON-REACTIVE) 07/24/22 Hepatitis C Antibody (EIA) NON-REACTIVE (NON-REACTIVE) 07/24/22 HIV (1&2) Ab and P24 Ag, 4th Gener Neg (Neg) 04/10/19 HIV (1&2) Ag and Ab Confirmation NON-REACTIVE (NON-REACTIVE) 07/24/22 Glucose 1 Hour 50 gm Load 117 mg/dl (70-130) 12/05/22 OB Optional Labs: Chlamydia trachomatis RNA Not Detected (NotDetected) 07/24/22 Neisseria gonorrhoeae RNA Not Detected (NotDetected) 07/24/22 Thyroid Stimulating Hormone (TSH) 1.969 uIu/ml (0.300-4.500) 01/02/23 Labs Reviewed: Declines cf/sma/cfdna--mln Discharge Data Consultations 02/23/23 07:44 Consult Anesthesiology Stat Procedures Performed Operation Date: 02/23/23 22:00 Actual Procedures p primary lower uterine section. Live male infant at 2229 - Glenna Anne MD, [facility] Course (1) Encounter for induction of labor: (2) Failure of descent in labor, delivered, current hospitalization: Plan The patient was admitted for induction, progressed to c/c/+2. There was failure of the fetus to descend and significant maternal pain with pushing where she could not continue. She underwent a primary low transverse c/s to deliver a viable fetus, cephalic presentation, 7#9oz. EBL 800cc. The patient's postop/ course was uncomplicated--tolerate regular diet, ambulated without difficulty, voided after removal of the berry and had her pain controlled on oral pain meds. She was d/c on day 3. Discharge H/H 8.2/25.5. f/u in 6 weeks in the office. Coding Level of Care Code None Diagnoses Encounter for induction of labor Z34.90 Failure of descent in labor, delivered, current hospitalization O62.2
== END 2023-02-26 12:45 | disposition home or self-care (01) | DRG 788 ==
LOC: 4S1 07:38 → 4E2 02-24 02:22

== ENCOUNTER 2025-05-16 16:00 | Inpatient (IN) ==
--- NOTE | 2025-05-07 07:46 | Anesthesiology Consultation ---
Date of Service May 07, 2025 Assessment & Plan Chart Review Chart Review: Acceptable Risk for Surgery Consults Requested none History Surgery Operation Date: 05/18/25 07:30 Proposed Procedures p Section (Delivery of Baby Through Abdominal Incision), - Lucie Gillespie DO s With Bilateral Tubal Ligation - Lucie Gillespie DO Height/Weight Height: 5 ft 5 in Weight: 83.915 kg Allergies Allergy/AdvReac Type Severity Reaction Status Date / Time cat dander Allergy Unknown SNEEZING, Verified 05/06/25 15:21 WATERY EYES dog dander Allergy Unknown SNEEZING, Verified 05/06/25 15:21 WATERY EYES grass pollen Allergy Unknown SNEEZING, Verified 05/06/25 15:21 WATERY EYES house dust mite Allergy Unknown SNEEZING, Verified 05/06/25 15:21 WATERY EYES mold Allergy Unknown SNEEZING, Verified 05/06/25 15:21 WATERY EYES Penicillins Allergy Unknown Hives Verified 05/06/25 15:21 ragweed pollen Allergy Unknown SNEEZING, Verified 05/06/25 15:21 WATERY EYES tree and shrub pollen Allergy Unknown SNEEZING, Verified 05/06/25 15:21 WATERY EYES weed pollen Allergy Unknown SNEEZING, Verified 05/06/25 15:21 WATERY EYES Medications Home Medications Medication Instructions Recorded Confirmed Last Taken Bifidobacterium infantis [Align 1 tab PO DAILY 10/15/24 05/06/25 Unknown (B.infantis)] 21-iron fu-folic acid 1 tab PO DAILY 10/15/24 05/06/25 Unknown [ Complete] sertraline 50 mg tablet 75 mg (1.5 x 50 mg) PO DAILY #135 02/20/25 05/06/25 Unknown tabs lidocaine 5 % topical ointment 1 applic topical BID PRN pain #30 04/27/25 05/06/25 Unknown grams ferrous sulfate 325 mg (65 mg 325 mg PO DAILY 05/06/25 05/06/25 Unknown iron) tablet (Iron (ferrous sulfate)) fexofenadine 180 mg tablet 180 mg PO QAM 05/06/25 05/06/25 Unknown Past Medical History Medical History (Updated 05/06/25 @ 15:35 by Lynette Pena RN) History of molar Pilonidal cyst 05/06/25- currently on abx IBS (irritable bowel syndrome) Jonathon's disease Recurrent UTI no recent issues Hypothyroidism no longer taking meds Chronic diarrhea Perforation of nasal septum, nontraumatic hx Allergic rhinitis Chronic sinusitis Anxiety Depression Anemia currently taking iron supplement Chlamydia hx of History of chicken pox History of thyroid disorder History of COVID-19 WILL BE 30 DAYS ON SEP 22 PER PT, COLD SYMTPOMS - ALL SYMPTOMS RESOLVED. DENIES CURRENT. Asthma no inhaler use H/O EXERCISE INDUCED ASTHMA. WELL CONTROLLED Past Family History Family History Grandfather (Maternal) Family history of diabetes mellitus Father Hypertension Prostate cancer Grandfather Deafness Mother Allergies Grandmother (Maternal) Hypertension Thyroid cancer Denies family history of Colon cancer Pancreatic cancer Ovarian cancer Breast cancer Uterus cancer Past Surgical History Surgical History Hx of colonoscopy H/O: section FTD 2022 Hx of nasal septoplasty Hx of sinus surgery Image Guided Endoscopic Sinus Surgery, Septoplasty, and Bilateral Inferior Turbinate Reduction - 01/24/19 History of dental surgery WISDOM TEETH History of oral surgery MULTIPLE ROOT CANALS History of laparoscopy 11/18/2018. 6.5 ETT. Grade 1 view. no issues. History of dilatation and curettage History of appendectomy Social History Smoking Status: Never smoker tobacco type: cigarettes Do You Dip or Chew Tobacco: No Hx Alcohol Use: No Alcohol type: hard liquor alcohol intake frequency: holidays/special occasions only Hx Substance Use: Yes (medical card- advised) substance use type: marijuana Last Used Substance Other:: 9 mos ago
[2025-05-16] MEDS ORDERED: ACETAMINOPHEN 325 MG TAB PO PRN (16:38)
[2025-05-16] MEDS ORDERED: CALCIUM CARBONATE 500 MG CHEWABLE TAB PO PRN (16:38)
[2025-05-16] MEDS: LACTATED RINGER'S 1,000 ML IV ONE (16:58)
[2025-05-16] MEDS: ONDANSETRON INJ 2 MG/ML 2 ML VIAL IV ONE (17:02)
--- NOTE | 2025-05-16 18:16 | History & Physical Report ---
Date of Service May 16, 2025 Assessment & Plan (1) Previous delivery affecting , antepartum: Plan: Nadine is a 29-year-old G5, P1 currently at 39 weeks 0 days gestational age presents in labor. Has a history of 1 prior section with planned repeat . consents reviewed and signed in clinic today. Risks and benefits of the procedure reviewed and all questions answered. Reactive NST noted. (2) Normal labor: (3) Hypothyroidism affecting : History of Present Illness Primary Care Provider: ERICKA Kirkland Nadine is a 29-year-old P1 with a history of 1 prior section currently at 39 weeks 0 days gestational age presents for evaluation of labor. Reporting painful contractions that started overnight. Reports that contractions have increased in frequency and intensity since onset. Denies any leakage of fluid. Hypothyroid *Check TFTs Q4wks - last checked 02/24 - no further follow up needed per endo until after delivery *Started Synthroid after NOB for TSH 4.4 Prior Schedule repeat at 28wk, no interest in Would like tubal Hx molar Normal intervening between molar and current OB Labs: Blood Type O Positive 10/22/24 Antibody Screen NEGATIVE 10/22/24 Hgb 10.3 g/dl (12.0-16.0) L 03/04/25 Hct 31.6 % (37.0-47.0) L 03/04/25 MCV 87.5 fL (80.0-100.0) 10/22/24 Plt Count 289 K/uL (130-400) 10/22/24 Rubella IgG Antibody Immune (Immune) 10/22/24 RPR Nonreactive (Nonreactive) 07/24/22 Treponema pallidum Ab Negative (Negative) 03/04/25 Hep Bs Antigen Negative (Negative) 10/22/24 Hep Bs Antigen NON-REACTIVE (NON-REACTIVE) 07/24/22 Hepatitis C Antibody Negative (Negative) 10/22/24 Hepatitis C Ab (EIA) NON-REACTIVE (NON-REACTIVE) 07/24/22 HIV 1&2 Ab/P24 Ag 4thGn Negative (Negative) 10/22/24 HIV (1&2) Ag & Ab Conf NON-REACTIVE (NON-REACTIVE) 07/24/22 Glucose 1 Hr 50 gm 108 mg/dl (70-130) 03/04/25 OB Optional Labs: Chlamydia trachomatis RNA Not Detected (NotDetected) 10/22/24 Neisseria gonorrhoeae RNA Not Detected (NotDetected) 10/22/24 Thyroid Stimulating Hormone (TSH) 2.344 uIu/ml (0.300-4.500) 02/24/25 Labs Reviewed: Declines cf/sma/cfdna--mln Allergies Allergy/AdvReac Type Severity Reaction Status Date / Time cat dander Allergy Unknown SNEEZING, Verified 05/11/25 09:23 WATERY EYES dog dander Allergy Unknown SNEEZING, Verified 05/11/25 09:23 WATERY EYES grass pollen Allergy Unknown SNEEZING, Verified 05/11/25 09:23 WATERY EYES house dust mite Allergy Unknown SNEEZING, Verified 05/11/25 09:23 WATERY EYES mold Allergy Unknown SNEEZING, Verified 05/11/25 09:23 WATERY EYES Penicillins Allergy Unknown Hives Verified 05/11/25 09:23 ragweed pollen Allergy Unknown SNEEZING, Verified 05/11/25 09:23 WATERY EYES tree and shrub pollen Allergy Unknown SNEEZING, Verified 05/11/25 09:23 WATERY EYES weed pollen Allergy Unknown SNEEZING, Verified 05/11/25 09:23 WATERY EYES Home Medications Medication Instructions Recorded Confirmed Type sertraline 50 mg tablet 75 mg (1.5 x 50 mg) PO DAILY #135 02/20/25 05/16/25 Rx tabs lidocaine 5 % topical ointment 1 applic topical BID PRN pain #30 04/27/25 05/16/25 Rx grams ferrous sulfate 325 mg (65 mg 325 mg PO DAILY 05/06/25 05/16/25 History iron) tablet (Iron (ferrous sulfate)) fexofenadine 180 mg tablet 180 mg PO QAM 05/06/25 05/16/25 History cephalexin 500 mg capsule 500 mg PO QID 05/14/25 05/14/25 History Patient History Medical History History of molar Pilonidal cyst 05/06/25- currently on abx IBS (irritable bowel syndrome) Jonathon's disease Recurrent UTI no recent issues Hypothyroidism no longer taking meds Chronic diarrhea Perforation of nasal septum, nontraumatic hx Allergic rhinitis Chronic sinusitis Anxiety Depression Anemia currently taking iron supplement Chlamydia hx of History of chicken pox History of thyroid disorder History of COVID-19 WILL BE 30 DAYS ON SEP PER PT, COLD SYMTPOMS - ALL SYMPTOMS RESOLVED. DENIES CURRENT. Asthma no inhaler use H/O EXERCISE INDUCED ASTHMA. WELL CONTROLLED Surgical History Hx of colonoscopy H/O: section FTD 2022 Hx of nasal septoplasty Hx of sinus surgery Image Guided Endoscopic Sinus Surgery, Septoplasty, and Bilateral Inferior Turbinate Reduction - 01/24/19 History of dental surgery WISDOM TEETH History of oral surgery MULTIPLE ROOT CANALS History of laparoscopy 11/18/2018. 6.5 ETT. Grade 1 view. no issues. History of dilatation and curettage History of appendectomy Family History Grandfather (Maternal) Family history of diabetes mellitus Father Hypertension Prostate cancer Grandfather Deafness Mother Allergies Grandmother (Maternal) Hypertension Thyroid cancer Denies family history of Colon cancer Pancreatic cancer Ovarian cancer Breast cancer Uterus cancer Social History Smoking Status: Former smoker Second Hand Exposure: No; Do You Dip or Chew Tobacco: No; Tobacco Cessation Education Requested by Patient: No Hx Alcohol Use: No Hx Substance Use: Yes Last Used Substance Other:: prior to - has card Preferred Language: Icelandic Communication Ability: Effective Record Clerk Required: No Beliefs That Will Affect Care: None marital status: marital status details: Francisco Javier Joy (33) [phone] Current Living Situation: Spouse Current Living Situation Comment: live at home with and son current occupational status: employed current occupation: [employer] Other Information That Helps Us Care for You: No Feels Safe at Home: Yes Safety Concerns: Feels Safe At This Time Seatbelt Use: always Assistive Devices: Glasses Assistive Devices Comment: reading glasses not here Physical Exam Genitourinary: OB Exam Monitor Tracing: + external FHT monitor used, + external uterine monitor used and + category I; no normal FHT variability Cervix changed from 2 cm to 4 cm over 90 minutes. Results & Data Vital Signs (Past 12 Hours) Vital Signs Pulse Resp BP 05/16/25 17:30 18 05/16/25 17:30 18 05/16/25 17:00 18 05/16/25 17:00 18 05/16/25 16:30 18 05/16/25 16:30 18 05/16/25 16:12 83 108/63 05/16/25 16:10 18 05/16/25 16:10 18 Coding Level of Care Code None Diagnoses Previous delivery affecting , antepartum O34.219 Normal labor O80; Z37.9 Hypothyroidism affecting in third trimester O99.283; E03.9 Trimester: third trimester (3) Hypothyroidism affecting Trimester: third trimester Qualified Code(s): O99.283 - Endocrine, nutritional and metabolic diseases complicating , third trimester; E03.9 - Hypothyroidism, unspecified
[2025-05-16] MEDS: LACTATED RINGER'S 1,000 ML IV SCH (18:17)
[2025-05-16] MEDS: ACETAMINOPHEN 500 MG TAB ONE (18:17)
[2025-05-16] MEDS ORDERED: OXYTOCIN 10 UNITS/ML VIAL ONE ×2 (18:32→20:04)
[2025-05-16] MEDS: ACETAMINOPHEN 500 MG TAB PO SCH (18:44)
[2025-05-16 18:52] LABS: Hematocrit (blood only) 28.9 % (37.0-47.0); Hemoglobin 9.2 g/dl (12.0-16.0); Mean Corpuscular Hemoglobin 25.5 pg (25.0-34.0); Mean Corpuscular Volume 80.1 fL (80.0-100.0); Platelet Count 218 K/uL (130-400); RDW Standard Deviation 43.7 fL (36.4-46.3); Red Blood Count 3.61 M/uL (4.20-5.40); White Blood Count 9.98 K/ul (4.8-10.8)
[2025-05-16] MEDS: CITRIC ACID/SODIUM CITRATE 15 ML UDC ONE (18:53)
[2025-05-16] MEDS ORDERED: MoRPHine SULFATE 2 MG/ML CARP IV PRN (19:00)
[2025-05-16] MEDS ORDERED: ONDANSETRON INJ 2 MG/ML 2 ML VIAL IV PRN (19:00)
[2025-05-16] MEDS ORDERED: MEPERIDINE HCL 25 MG/ML CARP/VIAL IV PRN (19:00)
[2025-05-16] MEDS ORDERED: NALOXONE HCL 0.08 MG in SYRINGE 1.8 ML IV PRN (19:00)
[2025-05-16] MEDS ORDERED: LACTATED RINGER'S 500 ML IV PRN (19:00)
[2025-05-16] MEDS ORDERED: HYDROmorphone INJ 0.5 MG/0.5 ML SYR IV PRN (19:00)
[2025-05-16] MEDS ORDERED: DC INTRASPINAL MORPHINE SCH (19:00)
[2025-05-16] MEDS ORDERED: NALOXONE HCL 1 MG in SODIUM CHLORIDE 0.9% 1,000 ML IV PRN (19:00)
[2025-05-16] MEDS ORDERED: NALOXONE HCL 0.4 MG/1 ML VIAL/CARP IV PRN (19:00)
[2025-05-16] MEDS ORDERED: PROMETHAZINE 6.25 MG/50.25 ML BAG IV PRN (19:00)
[2025-05-16] MEDS ORDERED: NO NARCOTICS OR SEDATIVES SCH (19:00)
[2025-05-16] MEDS ORDERED: MoRPHine SULFATE PF 1 MG/ML 10 ML AMP/VIAL ONE (19:08)
[2025-05-16] MEDS ORDERED: ONDANSETRON INJ 2 MG/ML 2 ML VIAL ONE (19:11)
[2025-05-16] MEDS ORDERED: HYDROCORTISONE ACETATE 25 MG SUPP PR PRN (20:22)
[2025-05-16] MEDS ORDERED: BENZOCAINE 20% SPRY 85 APPLN/85 GM CAN EXT PRN (20:22)
[2025-05-16] MEDS ORDERED: SENNA 8.6 MG TAB PO PRN (20:22)
[2025-05-16] MEDS ORDERED: MAGNESIUM HYDROXIDE SUSP 30 ML UDC PO PRN (20:22)
--- NOTE | 2025-05-16 20:27 | Operative Report ---
Post Operative Report Pre & Post Diagnosis Operation Date: 05/18/25 10:20 Pre-Op diagnosis: Term at 39 weeks, normal labor, prior section desiring repeat, desired sterilization, history of molar Postop diagnosis: Same status post procedure I identified the patient and participated in the time-out.: Yes Procedure Operation Date: 05/18/25 10:20 Repeat low-transverse section; bilateral tubal sterilization; keloid scar revision Surgeon Neri Solares MD [employer] Nursing staff Quantitative Blood Loss (QBL) See chart Findings Consistent with Post-Op Diagnosis Specimens Placenta due to history of molar Description of Procedure Patient was taken to the operating room after consents were ensured. Upon presentation she was prepped identified. Spinal anesthesia obtained and patient was prepped and draped in the normal sterile fashion. Preprocedure timeout was performed and the case was initiated. A Pfannenstiel incision was made with a knife at the location of prior incision. A keloid scar was resected as part of entry procedure. This was carried down to underlying fascia with the Bovie and blunt dissection. Fascia was nicked at the midline with a knife and was extended bluntly and with Loco scissors bilaterally. Abdomen was then entered bluntly and placed on stretch to provide adequate room for delivery. Head of the was noted to be in cephalic position and a low transverse uterine incision was made with a knife. The uterine cavity was then entered bluntly and placed on stretch to provide adequate room for delivery. Head of the delivered without difficulty quickly followed by shoulders and body. Cord was then double clamped and cut taken to the waiting nursery staff. Cord blood obtained and attention turned to deliver the placenta which delivered intact with gentle uterine massage and cord traction. Uterus was exteriorized and several passes made to remove any remaining membranes with a dry lap. Uterus was wrapped in a wet lap and the hysterotomy was reapproximated with 0 Vicryl in continuous running lock stitch. A second imbricating layer was then performed. Confirmed with Nadine that she desired proceeding with a tubal ligation which she confirmed. The fallopian tube grasped and was serially cauterized and dissected from the mesosalpinx with a LigaSure device. Procedure was repeated on the left fallopian tube and excellent hemostasis noted. The posterior cul-de-sac cleaned of clots and debris's. Hysterotomy was also noted to be hemostatic. Uterus returned to maternal abdomen and right left paracolic gutters cleaned of clots and debris's and hysterotomy reinspected. The muscle, fascia and subcutaneous layers were inspected and noted to be hemostatic. Fascia was reapproximated with 0 Vicryl in continuous running stitch. Subcutaneous layer reapproximated in 2 layers with 2-0 plain. A deep subcuticular interrupted stitch was performed to help reduce risk of keloid. Skin reapproximated 3-0 Vicryl in a subcuticular stitch. Dermabond placed on top. Needle sponge in instrument counts correct at the completion of the case. Both mother and stable in the immediate postdelivery timeframe. No complications noted and blood loss per QBL in chart. I attest to the content of the Intraoperative Record and any orders documented therein. Any exceptions are noted below. OB Procedure Charges [id number] Add on Tubal for C/S
[2025-05-16] MEDS: OXYTOCIN 20 UNITS/LR 1,002 ML IV SCH (20:30)
--- NOTE | 2025-05-16 20:41 | Anesthesiology Progress Note ---
Date of Service May 16, 2025 Anesthesia Post Procedure Vital Signs Vital Signs: Temp Pulse Resp BP Pulse Ox 05/16/25 20:39 69 106/55 L 05/16/25 20:37 68 100 05/16/25 20:32 67 99 05/16/25 20:29 73 153/60 H 05/16/25 20:27 69 100 05/16/25 19:00 18 05/16/25 19:00 18 05/16/25 18:30 18 05/16/25 18:30 18 05/16/25 18:00 18 05/16/25 18:00 18 05/16/25 17:30 18 05/16/25 17:30 18 05/16/25 17:21 18 05/16/25 17:21 36.6 C 18 05/16/25 17:00 18 05/16/25 17:00 18 05/16/25 16:30 18 05/16/25 16:30 18 05/16/25 16:12 83 108/63 05/16/25 16:10 18 05/16/25 16:10 18 Transfer of Care Handoff Completed per policy Notes Mental Status: alert / awake / arousable Nausea / Vomiting: adequately controlled Pain: adequately controlled Airway Patency, RR, SpO2: stable & adequate BP & HR: stable & adequate Hydration State: stable & adequate Neuraxial Anesthesia: was administered and sensory block is resolving Anesthetic Complications: no major complications apparent
[2025-05-16] MEDS: AZITHROMYCIN 500 MG/255 ML BAG IV SCH (21:09)
[2025-05-16] MEDS: DOCUSATE SODIUM 100 MG CAP PO SCH (21:12)
[2025-05-16] MEDS: SIMETHICONE 80 MG CHEW PO SCH (21:12)
[2025-05-16] MEDS: KETOROLAC 30 MG/ML VIAL IV SCH (21:17)
[2025-05-16] MEDS: DIPHTHER/TETAN/PERTUS Vaccine (Tdap, Adol/Adult) 0.5mL IM ONE (22:13)
[2025-05-16] MEDS: CITRIC ACID/SODIUM CITRATE 15 ML UDC PO SCH (23:02)
[2025-05-16] MEDS: diphenhydrAMINE 50 MG/ML VIAL IV PRN (23:07)
[2025-05-16] MEDS ORDERED: Nursing to Pharmacy Communication SCH (23:45)
[2025-05-16] MEDS: MoRPHine SULFATE PF 1 MG/ML 10 ML AMP/VIAL INT SPINAL ONE (23:49)
[2025-05-17] MEDS: LACTATED RINGER'S 1,000 ML IV SCH ×2 (00:01)
[2025-05-17] MEDS: NALBUPHINE HCL INJ 10 MG/ML AMP IV PRN (00:15)
[2025-05-17] MEDS: SODIUM CHLORIDE 0.9% 1,000 ML IV SCH (02:44)
[2025-05-17] MEDS: ACETAMINOPHEN 325 MG TAB PO SCH (02:55)
[2025-05-17 07:28] LABS: Hematocrit (blood only) 29.8 % (37.0-47.0); Hemoglobin 9.3 g/dl (12.0-16.0)
--- NOTE | 2025-05-17 08:40 | Obstetrical Progress Note ---
Date of Service May 17, 2025 Assessment & Plan (1) Encounter for care and examination after delivery: Day 1 status post repeat . Patient doing well and will continue with routine care. Will restart Keflex for infected pilonidal cyst Subjective Ambulation: ambulating normally Voiding: no voiding problems Passing Gas:: Yes Diet Tolerance:: regular diet Lochia:: Moderate Physical Exam Constitutional WD/WN, vitals as above Respiratory normal respiratory effort; no respiratory distress and no labored breathing Cardiovascular Extremities: no calf tenderness Gastrointestinal (Abdomen) Inspection/Auscultation: abdomen normal to inspection; abdomen not distended Percussion/Palpation: abdomen soft; abdomen nontender, no guarding and abdomen not rigid Incision clean, dry and intact Genitourinary OB Exam Abdomen: + fundal height Fundus: + firm and + relation to umbilicus (Below); not tender or not boggy Results & Data Vital Signs (Past 12 Hours) Vital Signs Temp Pulse Pulse Resp BP BP BP 05/17/25 07:30 18 05/17/25 07:30 36.4 C L 65 18 110/71 05/17/25 06:07 16 05/17/25 05:11 16 05/17/25 04:03 20 05/17/25 03:37 18 05/17/25 02:51 18 05/17/25 02:51 36.9 C 76 18 103/67 05/17/25 01:30 16 05/17/25 00:41 18 05/16/25 23:30 16 05/16/25 22:58 37 C 72 16 102/64 05/16/25 22:40 18 05/16/25 22:31 75 104/50 L 05/16/25 22:30 75 18 104/50 L 05/16/25 22:27 74 05/16/25 22:22 74 05/16/25 22:17 68 05/16/25 22:12 69 05/16/25 22:11 62 05/16/25 22:07 71 05/16/25 22:02 60 05/16/25 22:01 59 L 98/50 L 05/16/25 22:00 71 20 98/50 L 05/16/25 21:57 59 L 05/16/25 21:52 63 05/16/25 21:47 62 05/16/25 21:44 66 07/12/25 21:42 63 05/16/25 21:37 05/16/25 21:37 61 05/16/25 21:37 57 L 98/55 L 05/16/25 21:32 05/16/25 21:32 61 05/16/25 21:32 60 90/55 L 05/16/25 21:30 36.7 C 60 18 98/55 L 05/16/25 21:27 57 L 05/16/25 21:22 66 103/58 L 05/16/25 21:20 60 16 103/58 L 05/16/25 21:20 67 05/16/25 21:17 58 L 05/16/25 21:12 05/16/25 21:12 60 05/16/25 21:12 59 L 103/62 05/16/25 21:10 64 18 101/59 L 05/16/25 21:10 64 101/59 L 05/16/25 21:07 60 05/16/25 21:02 63 05/16/25 21:01 67 101/53 L 05/16/25 21:00 67 18 101/53 L 05/16/25 20:57 65 05/16/25 20:54 74 05/16/25 20:52 59 L 05/16/25 20:50 58 L 18 106/57 L 05/16/25 20:48 58 L 106/57 L 05/16/25 20:47 61 05/16/25 20:44 67 05/16/25 20:42 65 05/16/25 20:40 67 20 101/53 L 05/16/25 20:40 63 104/52 L 05/16/25 20:39 69 106/55 L Pulse Ox O2 Del Method 05/17/25 07:30 100 05/17/25 07:30 100 Room Air 05/17/25 06:07 92 05/17/25 05:11 95 05/17/25 04:03 94 05/17/25 03:37 94 05/17/25 02:51 94 05/17/25 02:51 94 Room Air 05/17/25 01:30 95 05/17/25 00:41 93 05/16/25 23:30 98 05/16/25 22:58 96 Room Air 05/16/25 22:40 99 05/16/25 22:31 05/16/25 22:30 98 05/16/25 22:27 98 05/16/25 22:22 96 05/16/25 22:17 96 05/16/25 22:12 97 05/16/25 22:11 94 05/16/25 22:07 97 05/16/25 22:02 96 05/16/25 22:01 05/16/25 22:00 97 05/16/25 21:57 98 05/16/25 21:52 97 05/16/25 21:47 98 05/16/25 21:44 93 05/16/25 21:42 97 05/16/25 21:37 97 05/16/25 21:37 05/16/25 21:37 05/16/25 21:32 98 05/16/25 21:32 05/16/25 21:32 05/16/25 21:30 97 05/16/25 21:27 97 05/16/25 21:22 99 05/16/25 21:20 99 05/16/25 21:20 90 05/16/25 21:17 99 05/16/25 21:12 99 05/16/25 21:12 05/16/25 21:12 05/16/25 21:10 99 05/16/25 21:10 05/16/25 21:07 99 05/16/25 21:02 100 05/16/25 21:01 05/16/25 21:00 100 05/16/25 20:57 100 05/16/25 20:54 91 05/16/25 20:52 100 05/16/25 20:50 98 05/16/25 20:48 05/16/25 20:47 98 05/16/25 20:44 92 05/16/25 20:42 99 05/16/25 20:40 100 05/16/25 20:40 05/16/25 20:39
[2025-05-17] MEDS ORDERED: SERTRALINE HCL 50 MG TABLET PO SCH (09:00)
[2025-05-17] MEDS: PRENATAL VITAMIN 1 TAB PO SCH (09:24)
[2025-05-17] MEDS: FERROUS SULFATE 325 MG TAB PO SCH (09:26)
[2025-05-17] MEDS ORDERED: PROMETHAZINE 12.5 MG/50.5 ML BAG IV PRN (13:00)
[2025-05-17] MEDS ORDERED: ONDANSETRON INJ 2 MG/ML 2 ML VIAL IV PRN (13:00)
[2025-05-17] MEDS ORDERED: HYDROmorphone INJ 0.5 MG/0.5 ML SYR IV PRN (13:00)
[2025-05-17] MEDS ORDERED: diphenhydrAMINE Capsule 25 MG CAP PO PRN (13:00)
[2025-05-17] MEDS ORDERED: diphenhydrAMINE 50 MG/ML VIAL IV PRN (13:00)
[2025-05-17] MEDS: BACITRACIN OINT 14 GM TUBE EXT SCH (13:54)
[2025-05-17] MEDS: SERTRALINE HCL 50 MG TABLET PO SCH (19:56)
[2025-05-17] MEDS ORDERED: KETOROLAC 30 MG/ML VIAL IV PRN (21:00)
[2025-05-17] MEDS: IBUPROFEN 600 MG TAB PO SCH (21:14)
[2025-05-17 22:58] VITALS: TEMP 97.9; O2SAT 94
[2025-05-18] MEDS: CALCIUM CARBONATE 500 MG CHEWABLE TAB PO PRN (04:47)
--- NOTE | 2025-05-18 05:55 | Obstetrical Progress Note ---
Date of Service <Juan Carlos Bolden MD - Last Filed: 05/18/25 06:56> May 18, 2025 Assessment & Plan <Juan Carlos Bolden MD - Last Filed: 05/18/25 06:56> (1) care and examination: 29 yo post-op day 2 s/p section Fells well today. Vital signs stable Continue post- care Encourage ambulation and bottle feeding Pain controlled with Ibuprofen, Tylenol Vitals and Hgb stable Discharge home today, follow up with OB provider in 6 weeks DC instructions discussed <Neri Solares MD - Last Filed: 05/18/25 07:52> (1) care and examination: Subjective <Juan Carlos Bolden MD - Last Filed: 05/18/25 06:56> 29yo post-op day 2 s/p section Ambulation: Ambulating normally Voiding: No voiding problems Passing Gas:: Yes Diet Tolerance:: regular diet Lochia:: Small Feeding Type:: bottle feeding q4hrs Current Pain Level: 4/10 controlled with Tylenol, Ibuprofen Resting comfortably this AM in NAD. Denies LOPES, CP, SOB, N/V/D, LE pain/swelling. Physical Exam <Juan Carlos Bolden MD - Last Filed: 05/18/25 06:56> General: patient resting comfortably, NAD, non-toxic in appearance, answers questions appropriately Skin: warm, dry, intact Heart: S1/S2 heard, regular, no m/r/g Lungs: equal air entry bilaterally, no rales/rhonchi/wheezes Abd: Normoactive BS, soft, NT/ND, uterine fundus firm below umbilicus, incision clean, dry, and intact Ext: warm, no clubbing/cyanosis or edema, Kristel's neg Neuro: nonfocal, patient AAOx4, speech intact, no facial droop, moving all extremities on command Results & Data <Juan Carlos Bolden MD - Last Filed: 05/18/25 06:56> Vital Signs (Past 12 Hours) Vital Signs Temp Pulse Resp BP Pulse Ox O2 Del Method 05/17/25 22:57 36.6 C 59 L 16 117/79 94 Room Air 05/17/25 20:03 Room Air 05/17/25 20:03 36.8 C 90 18 102/67 99 Room Air Supervising Physician <Neri Solares MD - Last Filed: 05/18/25 07:52> Co-Signing Physician Notes Patient seen with resident and agree with the above findings and plan. Stable for discharge today Resident Activity Tracking <Juan Carlos Bolden MD - Last Filed: 05/18/25 06:56> Resident Involvement: Resident Care Provided Care Provided: OB Delivery
[2025-05-18 07:08] VITALS: PULSE 61; RESP 18
[2025-05-18 10:51] VITALS: BP 102/64
[2025-05-18] MEDS ORDERED: IBUPROFEN 600 MG TAB PO PRN (20:22)
[2025-05-19] MEDS ORDERED: ACETAMINOPHEN 325 MG TAB PO PRN (02:22)
--- NOTE | 2025-05-21 14:45 | Discharge Summary ---
Date of Service May 21, 2025 Admission HPI Per Admitting Provider Nadine is a 29-year-old P1 with a history of 1 prior section currently at 39 weeks 0 days gestational age presents for evaluation of labor. Reporting painful contractions that started overnight. Reports that contractions have increased in frequency and intensity since onset. Denies any leakage of fluid. Hypothyroid *Check TFTs Q4wks - last checked 02/24 - no further follow up needed per endo until after delivery *Started Synthroid after NOB for TSH 4.4 Prior Schedule repeat at 28wk, no interest in Would like tubal Hx molar Normal intervening between molar and current OB Labs: Blood Type O Positive 10/22/24 Antibody Screen NEGATIVE 10/22/24 Hgb 10.3 g/dl (12.0-16.0) L 03/04/25 Hct 31.6 % (37.0-47.0) L 03/04/25 MCV 87.5 fL (80.0-100.0) 10/22/24 Plt Count 289 K/uL (130-400) 10/22/24 Rubella IgG Antibody Immune (Immune) 10/22/24 RPR Nonreactive (Nonreactive) 07/24/22 Treponema pallidum Ab Negative (Negative) 03/04/25 Hep Bs Antigen Negative (Negative) 10/22/24 Hep Bs Antigen NON-REACTIVE (NON-REACTIVE) 07/24/22 Hepatitis C Antibody Negative (Negative) 10/22/24 Hepatitis C Ab (EIA) NON-REACTIVE (NON-REACTIVE) 07/24/22 HIV 1&2 Ab/P24 Ag 4thGn Negative (Negative) 10/22/24 HIV (1&2) Ag & Ab Conf NON-REACTIVE (NON-REACTIVE) 07/24/22 Glucose 1 Hr 50 gm 108 mg/dl (70-130) 03/04/25 OB Optional Labs: Chlamydia trachomatis RNA Not Detected (NotDetected) 10/22/24 Neisseria gonorrhoeae RNA Not Detected (NotDetected) 10/22/24 Thyroid Stimulating Hormone (TSH) 2.344 uIu/ml (0.300-4.500) 02/24/25 Labs Reviewed: Declines cf/sma/cfdna--mln Discharge Data Consultations 05/16/25 18:08 Consult Anesthesiology Stat Procedures Performed Operation Date: 05/18/25 10:20 <No data on this case meets the specified criteria> Hospital Course (1) Previous delivery affecting , antepartum: Patient presented to labor and delivery in labor with history of prior C- section. Patient plan for repeat which was performed without complication. Patient had no concerns occur in her postoperative/ recovery course. Was discharged home in stable condition with both written and verbal discharge instructions. (2) Encounter for care and examination after delivery: Coding Level of Care Code None Diagnoses Previous delivery affecting , antepartum O34.219 Encounter for care and examination after delivery Z39.2
== END 2025-05-18 13:46 | disposition home or self-care (01) | DRG 785 ==
LOC: OPB 17:10 → 4S1 17:11 → 4E2 23:11 → EDSTATUS 05-18 07:30
DX: Z91.09 Other allergy status, other than to drugs and biological substances; O34.211 Maternal care for low transverse scar from previous cesarean delivery; Z30.2 Encounter for sterilization; Z79.899 Other long term (current) drug therapy; Z3A.39 39 weeks gestation of pregnancy; E03.9 Hypothyroidism, unspecified; O99.284 Endocrine, nutritional and metabolic diseases complicating childbirth; Z87.891 Personal history of nicotine dependence; Z88.0 Allergy status to penicillin; Z37.0 Single live birth